=== PATIENT | male | born 1940 | race Caucasian/White ===

== ENCOUNTER 2018-10-14 03:11 | Inpatient (IN) ==
[2018-10-14] MEDS ORDERED: ALBUTEROL NEB INH ONE (05:03)
--- NOTE | 2018-10-14 05:10 | PROVIDER DOCUMENTATION ---
HPI-Respiratory General - General Chief Complaint: Shortness of Breath Stated Complaint: CAN'T BREATHE, SOB X SEVERAL DAYS Time Seen by Provider: 10/14/18 04:50 Source: patient Allergies/Adverse Reactions: Patient Allergies Allergy/AdvReac Type Severity Reaction Status Date / Time No Known Allergies Allergy Verified 08/31/18 15:57 Home Medications: Home Medication List Medication Instructions Recorded Confirmed Last Taken Type Alprazolam [Xanax] 1 mg PO BID PRN PRN 11/02/16 11/02/16 11/01/16 History Amlodipine [Norvasc] 10 mg PO DAILY 11/02/16 11/02/16 11/01/16 History Carboxymethylcellulose Sodium 1 each OP Q3-4H PRN PRN 11/02/16 11/02/16 History [Refresh Plus] Ciprofloxacin 0.3% Ophth Oint 1 drop RIGHT EYE 4XDAY 11/02/16 11/02/16 11/02/16 History [Ciloxan Ophth Oint] Difluprednate [Durezol] 1 drop RIGHT EYE BID 11/02/16 11/02/16 11/02/16 History Hydromorphone HCl [Dilaudid] 4 mg PO Q6H PRN PRN 11/02/16 11/02/16 11/01/16 History Morphine E.r. [Ms Contin] 15 mg PO 4XDAY 11/02/16 11/02/16 11/01/16 History Nepafenac [Ilevro] 1 drop RIGHT EYE DAILY 11/02/16 11/02/16 11/02/16 History Docusate Sodium [Colace] 100 mg PO DAILY #10 cap 08/31/18 Unknown Rx - History of Present Illness-Resp Nature of Presenting Problem: pt has been referred to Dr Mcknight on Tuesday for evaluation of a possible lung cancer. he has a cough, is not sleeping well. he was instructed to use his inhaler for the cough but only uses it rarely. he denied understanding his evaluation for a lung cancer Review of Systems - Adult - REVIEW OF SYSTEMS - ADULT Constitutional: denies: chills, fever Eyes: denies: discharge, blurred vision Ears, Nose, Mouth & Throat: denies: ear pain, nose pain, throat pain Cardiovascular: denies: chest pain, poor circulation, syncope Respiratory: reports: cough, shortness of breath Gastrointestinal: denies: abdominal pain, diarrhea, nausea, vomiting Genitourinary: denies: dysuria, frequent UTI's Musculoskeletal: denies: bone pain, joint pain, joint swelling Integumentary: denies: mole changes, rash, skin sores/ulcer Neurological: denies: numbness, syncope Psychiatric: reports: no symptoms reported Endocrine: denies: goiter, cold intolerance, heat intolerance Hematologic/Lymphatic: denies: low blood count, lymphedema Allergic/Immunologic: reports: no symptoms reported Past History - Adult - PAST MEDICAL HISTORY-ADULT Review of Records: reports: Nursing Assessment Review, Medications Reviewed Major Childhood Illnesses: reports: denies history Cardiovascular: reports: denies history Respiratory: reports: denies history Gastrointestinal: reports: denies history Obstetrical/Gynecological: reports: denies history Genitourinary: reports: denies history Musculoskeletal: reports: denies history Neurological: reports: denies history Endocrine/Immune: reports: denies history Other Conditions: reports: denies history Physical Exam-General - PHYSICAL EXAM-ADULT Initial Vital Signs Reviewed: Yes - CONSTITUTIONAL General Appearance: appears well, alert, no apparent distress - EYES Eyes: PERRL/EOMI, pink conjunctivae - HEAD, EARS, NOSE, MOUTH & THROAT HENMT: normocephalic/atraumatic, moist mucous membranes, normal ENT inspection - NECK Neck: non-tender, full range of motion, supple - RESPIRATORY Respiratory: chest non-tender, lungs clear, normal breath sounds, no pleuratic chest pain, no respiratory distress, no accessory muscle use - CARDIOVASCULAR Cardiovascular: no edema, no murmur - GASTROINTESTINAL (ABDOMEN) Abdominal Exam: non tender, soft - LYMPHATIC Lymphatic: no adenopathy - MUSCULOSKELETAL Back Exam: normal inspection, no CVA tenderness, no vertebral tenderness Extremity: normal range of motion, non-tender, normal gait, normal inspection - SKIN Integumentary: normal color, normal turgor, warm/dry - NEUROLOGIC Neurologic: metal template maker II-XII nml as tested, grossly normal, no motor/sensory deficits - PSYCHIATRIC Psych/Mental Status: normal mood/affect, normal thought content, normal thought process, oriented x 3 Progress - PLAN OF CARE/RESULTS Progress/Plan/Lab Results: Vital Signs - 8 hr 10/14/18 03:21 10/14/18 05:12 10/14/18 05:20 Temperature 97.2 F L Pulse Rate 73 Respiratory Rate 18 Blood Pressure 155/81 O2 Sat by Pulse Oximetry 92 L 90 L 93 L 10/14/18 05:26 10/14/18 05:30 10/14/18 05:40 Temperature Pulse Rate 76 Respiratory Rate 19 Blood Pressure O2 Sat by Pulse Oximetry 94 L 94 L 93 L 10/14/18 05:50 10/14/18 06:00 10/14/18 06:10 Temperature Pulse Rate Respiratory Rate Blood Pressure O2 Sat by Pulse Oximetry 92 L 92 L 92 L 10/14/18 06:20 Temperature Pulse Rate Respiratory Rate Blood Pressure O2 Sat by Pulse Oximetry 91 L Laboratory Results - last 24 hr 10/14/18 10/14/18 05:15 05:15 WBC 8.62 RBC 4.62 L Hgb 13.2 L Hct 40.9 L MCV 88.5 MCH 28.6 MCHC 32.3 L RDW Std Deviation 14.2 Plt Count 342 MPV 10.4 Immature Gran % (Auto) 0.5 Neut % (Auto) 74.1 Lymph % (Auto) 11.9 L [place] % (Auto) 10.7 H Eos % (Auto) 2.3 Baso % (Auto) 0.5 Immature Gran # (Auto) 0.04 Neut # (Auto) 6.39 Lymph # (Auto) 1.03 L [place] # (Auto) 0.92 H Eos # (Auto) 0.20 Baso # (Auto) 0.04 Sodium 140 Potassium 3.3 L Chloride 102 Carbon Dioxide 27 Anion Gap 11 BUN 6 L Creatinine 0.9 Estimated GFR/1.73 m2 > 60 BUN/Creatinine Ratio 7 Glucose 126 H Calculated Osmolality 279 Calcium 9.0 Total Bilirubin 0.82 AST 19 ALT 10 Alkaline Phosphatase 87 Total Protein 7.0 Albumin 3.3 L Globulin 3.7 Albumin/Globulin Ratio 0.9 Orders Category Date Time Status RT [Home O2 Evaluation] ORDERED Care 10/14/18 06:42 Ordered RT [Respiratory Therapy Evaluation] ORDERED Care 10/14/18 05:05 Active ABG [RESP] Stat Lab 10/14/18 06:43 Ordered ABG [RESP] Stat Lab 10/14/18 06:44 Ordered CBC WITH ELECTRONIC DIFF [HEME] Stat Lab 10/14/18 05:15 Completed CMP [COMPREHENSIVE METABOLIC PANEL] [CHEM] Stat Lab 10/14/18 05:15 Completed Albuterol [Albuterol Neb] Med 10/14/18 05:03 Discontinued 5 mg INH NOW ONE Potassium Chloride 20% Liquid Med 10/14/18 06:36 Discontinued 40 meq PO NOW ONE Aerosol Treatments Routine Oth 10/14/18 05:04 Completed Aerosol Treatments Stat Oth 10/14/18 05:04 Completed EKG [EKG] Stat Ther 10/14/18 03:30 Ordered Result Diagrams: 10/14/18 05:15 10/14/18 05:15 - REASSESSMENT Reassessment #1 Time Reassessed: 06:46 Status: unchanged (pt very reluctant to be admitted for oxygen) - EKG 1 Time of EKG reading by physician:: 05:10 EKG Read and Signed by:: Phil Whaley EKG Interpretation (*Must complete 3 of following elements*): Abnormal Rate: 69 Rhythm: AF [place]: normal QRS: normal [place] Interval: normal ST Wave: normal Prior EKG Comparison: changes noted (oct 29 new onset AF) Departure - Departure Date of Disposition Decision: 10/14/18 Time of Disposition Decision: 06:46 DIAGNOSIS: Atrial fibrillation with normal ventricular rate, Lung mass, Hypoxia Disposition: ADMITTED INPATIENT 09 Certified Medical Emergency: Emergent Condition: Stable Referrals and Follow-Ups: Duglas Fisher MD [Primary Care Provider] - Discharge Education: Steps to Quit Smoking, [id number] - Critical Care Note This patient required my direct & personal management of CC.: No Attestation - Physician/ DANIELA Attestation The physician spent face to face time with patient:: Yes Advanced Practice Provider documentation review:: Supervising physician onsite and consulted in the evaluation and care of this patient. The physician did have a face to face encounter with the patient.
[2018-10-14 05:30] LABS: BASO# 0.04 X1000 (0.0-0.2); BASO% 0.5 % (0.0-0.8); EOS% 2.3 % (0.0-10.0); HEMATOCRIT 40.9 % (42.0-52.0); HEMOGLOBIN 13.2 g/dL (14.0-18.0); IMM GRAN# 0.04 X1000 (0.0-0.04); IMM GRAN% 0.5 % (0.0-0.5); LYMPH# 1.03 X1000 (1.2-3.4); LYMPH% 11.9 % (20.5-51.1); MCH 28.6 PG (27-31); MCHC 32.3 g/dL (33-37); MCV 88.5 FL (81-99); MONO# 0.92 X1000 (0.11-0.59); MONO% 10.7 % (1.7-9.3); MPV 10.4 FL (7.4-10.4); NEUT# 6.39 X1000 (1.4-6.5); NEUT% 74.1 % (42.2-75.2); PLT 342 X1000 (130-400); RBC 4.62 XMIL (4.7-6.1); RDW 14.2 % (11.5-14.5); WBC 8.62 X1000 (4.8-10.8)
[2018-10-14 06:11] LABS: AGAP 11; ALB/GLOB RATIO 0.9; ALBUMIN 3.3 g/dL (3.5-5.0); ALKALINE PHOSPHATASE 87 U/L (32-122); BUN 6 mg/dL (8-22); CHLORIDE 102 mmol/L (98-107); COSMO 279; CREATININE 0.9 mg/dL (0.7-1.2); ESTIMATED GFR > 60; GLUCOSE 126 mg/dL (70-104); GOT 19 U/L (10-34); GPT 10 U/L (10-44); POTASSIUM 3.3 mmol/L (3.5-5.1); SODIUM 140 mmol/L (136-145); TCO2 27 mmol/L (25-35); TOTAL BILIRUBIN 0.82 mg/dL (0.20-1.00)
[2018-10-14] MEDS ORDERED: POTASSIUM CHLORIDE 20% LIQUID PO ONE (06:36)
[2018-10-14 06:55] LABS: ALLEN TEST YES; BE 2.9 mmoll (-3.0-3.0); BLOOD TYPE ARTERIAL; HCO3-(ACT) 27.1 mmoll (20.0-26.0); MODALITY CANNULA; O2(CT) 17.6 mL/dL (15.0-23.0); O2HB 93.2 % (95.0-99.0); PCO2(98.6) 34 mmHg (35-45); PO2(98.6) 67 mmHg (60-100); SAMPLE BLOOD; SAO2 96.5 % (95.0-100.0); THB 13.4 g/dL (11.5-17.4); pH(98.6) 7.49 (7.35-7.45)
--- NOTE | 2018-10-14 07:57 | Diag Imaging Result Doc PS360 ---
EXAM: CHEST-2 VIEWS 10/14/2018 HISTORY: hypoxia TECHNIQUE: AP upright and lateral chest COMMENT: There is generally increased interstitial markings particularly in the left lung. Some sparing of the right upper lobe may be due to emphysematous disease. These findings were not present on 01/08/2016. IMPRESSION: Pulmonary edema plus minus pneumonia. Electronically signed by Prasanna Luu 10/14/2018 7:55 AM
[2018-10-14] MEDS: ROCEPHIN 1 GM in NS 50 ML IV SCH (08:55)
[2018-10-14] MEDS: DUONEB (A & A) INH SCH ×4 (11:25→23:35)
[2018-10-14 11:58] LABS: INR 1.16; PROTIME 15.7 Seconds (11.0-16.0)
[2018-10-14 11:59] LABS: PTT 41.9 Seconds (22.3-41.8)
[2018-10-14] MEDS: LOVENOX SUBQ SCH (12:33)
[2018-10-14] MEDS: LEVAQUIN 500 MG/D5W 500 MG/100 ML IVPB IV SCH (12:34)
--- NOTE | 2018-10-14 14:15 | HISTORY AND PHYSICAL ---
ADDENDUM: Patient seen and examined by myself. Full note dictated and discussed with nurse practitioner. Patient presented emergency department noted he was having trouble breathing having increased work of breathing, shortness of breath. He has a abnormal chest x-ray demonstrating a lung mass. We will admit him to the hospital, treat him for his shortness of breath, will consult for the possibility of biopsy of his lung mass. Will place him on oxygen and will follow. cc: Duglas Fisher MD
--- NOTE | 2018-10-14 14:28 | HISTORY AND PHYSICAL ---
PRIMARY CARE PHYSICIAN: SUNSHINE Quinn, with Dr. Duglas Fisher PRIMARY TAKER OFF HEMP FIBER: Dr. Wyatt Mcknight out of [place] CHIEF COMPLAINT: Shortness of breath, cough, and decreased appetite. HISTORY OF PRESENT ILLNESS: Mr. Clark Mcknight is a 77-year-old male with a medical history of hypertension but denies having a history of coronary artery disease which seems to be listed as a nonobstructive type in a previous history and physical. He does seem to have some sort of cognitive impairment, may be early dementia, and is a poor historian. He states for at least 2 weeks or more, he has been having cough, shortness of breath. No fever. Decreased appetite but no weight loss. His cough has been productive with yellow phlegm. He went to [facility] who did some imaging or chest x-rays and then sent him to Dr. Wyatt Mcknight, and apparently he has an appointment for a procedure at [facility] on Tuesday with Wyatt Mcknight at 11:00 a.m., and I believe it is an evaluation for possible lung cancer, so it could be a biopsy, and he is unsure if that is what they are trying to evaluate, that is just what is mentioned in the ER physician record. There was no other family member at the bedside with him, and he lives at home alone. He continues to smoke and he has so for at least 40 years. We will admit to the Medical Floor. He did have some mild hypoxias that required some oxygen, and his chest x-ray here showed pulmonary edema plus or minus pneumonia, so we will start him on some antibiotics, likely Rocephin. PAST MEDICAL HISTORY: Hypertension, but denies any other history. Also concern for early dementia. PAST SURGICAL HISTORY: Right eye lens implant, and he has had left lower extremity pins placed for a fracture. SOCIAL HISTORY: He smokes less than half a pack per day and has so on and off for 40 years. He dips Skoal and averages about 1/4 of a can per day. He denies alcohol or illicit drug use. He lives at home alone in [place]. 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 FAMILY HISTORY: He said his mother had diabetes and was unsure of his father's medical history. ALLERGIES: No known drug allergies. HOME MEDICATIONS: Not verified, but it appears like he may have a chronic pain syndrome because he has Dilaudid and MS Contin in his old medication records. They need to be verified or reconciled by the nurse. REVIEW OF SYSTEMS: A 14-point review of systems is complete, and all were negative except for those mentioned in the above HPI. Positive for shortness of breath, productive cough with thick yellow phlegm. Positive decreased appetite and poor sleep. Denies fever. PHYSICAL EXAMINATION: VITAL SIGNS: Temperature is 97.2, heart rate 73, respiratory rate 20, blood pressure 161/79, O2 saturation is 95% on 3 L. GENERAL: Mr. Clark Mcknight is a 77-year-old male. He is in no acute distress. He is able to answer questions appropriately. HEENT: Atraumatic and normocephalic. Pupils are equal, round and reactive to light. Extraocular movements were intact. Mucous membranes are moist. NECK: Trachea midline. CARDIOVASCULAR: S1, S2. Regular rate and rhythm. No rubs, gallops or murmurs. No lower extremity edema. Plus 2 dorsalis and radial pulses. Negative JVD or carotid bruits. PULMONARY: Mild crackles in the bases. No accessory muscle use or work of breathing noted. Tolerated nasal cannula 3 L. GASTROINTESTINAL: Soft, nontender and nondistended. Positive bowel sounds x4. EXTREMITIES: Moves all extremities equally with full range of motion. NEUROLOGICAL: Alert and oriented x3. Follows commands. Sensory is intact. SKIN: Warm, dry and intact. DIAGNOSTIC DATA: White blood cells 8000, hemoglobin 13, hematocrit 40, platelet count 342. ABGs showed pH of 7.49, pCO2 of 34, pO2 is 67, bicarb 27, base excess 2.9, saturation 93%, lactate 1.1 on 2 L. Sodium is 140, potassium 3.3, BUN is 6, creatinine 0.9, glucose 126, calcium 9.0, bilirubin 0.82, AST is 19, ALT is 10, albumin 3.3. IMAGING: Chest x-ray with pulmonary edema plus or minus pneumonia. ASSESSMENT AND PLAN: 1. Community acquired pneumonia. White count is normal. He has some mild hypoxia with it requiring oxygen. 2. Mild hypoxemic respiratory insufficiency. We will evaluate for home O2. He will also have nebulizers, albuterol, Atrovent, and budesonide added. 3. Longstanding tobacco abuse, smoking and smokeless. Likely he has COPD due to this. He refuses nicotine patch and states he has plans on quitting smoking as soon as he gets out of the hospital. 4. Currently being ruled out for lung cancer. He is supposed to see Wyatt Mcknight at [facility] at 11:00 a.m. on Tuesday. We will consult Pulmonary for any additional recommendations. 5. Hypertension. Home medications have not been verified. Currently, blood pressure is running 150s to 160s. 6. Right eye lens implant. Apparently he takes lots of eyedrops, so once those are verified, we will resume. 7. Questionable chronic pain syndrome. Some of his old home medications on his medication list from 2017 are MS Contin 15 four times a day and Dilaudid 4 mg every 6 hours p.r.n., but he did not mention that he had any type of chronic pains. 8. DVT prophylaxis. Lovenox. Dictated by SUNSHINE Medrano for Duglas Fisher MD cc: SUNSHINE Medrano MD
[2018-10-14] MEDS: PULMICORT INH SCH (19:20)
[2018-10-14] MEDS: TYLENOL PO PRN (22:39)
[2018-10-15] MEDS: DUONEB (A & A) INH SCH ×6 (03:35→23:00)
[2018-10-15 04:58] LABS: ALLEN TEST YES; BE 3.3 mmoll (-3.0-3.0); BLOOD TYPE ARTERIAL; HCO3-(ACT) 27.3 mmoll (20.0-26.0); METHB 0.7 % (0.0-1.5); O2(CT) 15.8 mL/dL (15.0-23.0); O2HB 90.6 % (95.0-99.0); PCO2(98.6) 41 mmHg (35-45); PO2(98.6) 58 mmHg (60-100); SAMPLE BLOOD; SAO2 93.4 % (95.0-100.0); THB 12.4 g/dL (11.5-17.4); pH(98.6) 7.44 (7.35-7.45)
[2018-10-15 05:01] LABS: MODALITY CANNULA
--- NOTE | 2018-10-15 07:12 | Diag Imaging Result Doc PS360 ---
EXAM: CHEST-1 VIEW 10/15/2018 HISTORY: SOB TECHNIQUE: AP portable at 0510 COMMENT: Compared to the previous study of 10/14/2018 there has been definite worsening of opacification of the left lung and to some extent in the right base. IMPRESSION: Worsening pulmonary edema plus minus pneumonia. Electronically signed by Prasanna Luu 10/15/2018 7:10 AM
[2018-10-15 07:20] LABS: BASO# 0.04 X1000 (0.0-0.2); BASO% 0.5 % (0.0-0.8); EOS# 0.16 X1000 (0.0-0.7); EOS% 2.1 % (0.0-10.0); HEMATOCRIT 38.8 % (42.0-52.0); HEMOGLOBIN 12.2 g/dL (14.0-18.0); IMM GRAN# 0.02 X1000 (0.0-0.04); IMM GRAN% 0.3 % (0.0-0.5); LYMPH# 1.19 X1000 (1.2-3.4); LYMPH% 15.3 % (20.5-51.1); MCH 28.4 PG (27-31); MCHC 31.4 g/dL (33-37); MCV 90.4 FL (81-99); MONO# 0.95 X1000 (0.11-0.59); MONO% 12.2 % (1.7-9.3); MPV 10.9 FL (7.4-10.4); NEUT# 5.43 X1000 (1.4-6.5); NEUT% 69.6 % (42.2-75.2); PLT 295 X1000 (130-400); RBC 4.29 XMIL (4.7-6.1); RDW 14.6 % (11.5-14.5); WBC 7.79 X1000 (4.8-10.8)
[2018-10-15] MEDS: PULMICORT INH SCH ×2 (07:31→19:20)
[2018-10-15 07:36] LABS: AGAP 11; ALB/GLOB RATIO 0.8; ALBUMIN 2.9 g/dL (3.5-5.0); ALKALINE PHOSPHATASE 84 U/L (32-122); BUN 8 mg/dL (8-22); CALCIUM 8.6 mg/dL (8.8-10.2); CHLORIDE 106 mmol/L (98-107); COSMO 289; CREATININE 0.9 mg/dL (0.7-1.2); ESTIMATED GFR > 60; GLUCOSE 136 mg/dL (70-104); GOT 21 U/L (10-34); GPT 12 U/L (10-44); POTASSIUM 3.5 mmol/L (3.5-5.1); SODIUM 145 mmol/L (136-145); TCO2 28 mmol/L (25-35); TOTAL BILIRUBIN 0.49 mg/dL (0.20-1.00); TOTAL PROTEIN 6.4 g/dL (6.3-8.3)
[2018-10-15] MEDS: ROCEPHIN 1 GM in NS 50 ML IV SCH (08:56)
[2018-10-15] MEDS: LEVAQUIN 500 MG/D5W 500 MG/100 ML IVPB IV SCH (08:57)
[2018-10-15] MEDS: LOVENOX SUBQ SCH (08:57)
--- NOTE | 2018-10-15 10:29 | Diag Imaging Result Doc PS360 ---
EXAM: CT THORAX W/O CONTRAST 10/15/2018 HISTORY: pulm edema, ??pneumonia, lung mass TECHNIQUE: This exam was performed using automated exposure control, adjustment of mA or kV according to patient size, and/or use of iterative reconstruction technique. COMMENT: The current examination is compared to the previous study of 10/06/2018. There is still extensive interstitial opacity in the left upper lobe without significant edema seen in the right upper lobe. Some increased interstitial markings are present in both lower lobes. This was also the case previously. The dense alveolar opacity which was demonstrated previously in the anteromedial left upper lobe has not changed significantly in size or appearance. There is still a left pleural effusion although this may be slightly decreased in volume. There is a small effusion on the right. The right effusion may be slightly larger. There is a pericardial effusion which appears larger than on the previous study measuring 14 mm over the apex. The nodule in the right middle lobe described on the previous study has not changed significantly in size or appearance. The lower lobes are slightly better expanded than they were and there are small nodular opacities bilaterally which are slightly better defined than on the previous examination. Of note is one nodule near the pleural surface in the left lower lobe on image 81 measuring 7 mm. This was partially obscured by adjacent alveolar opacity on the previous study but is similar in size. There is right paratracheal and aorticopulmonary window adenopathy. IMPRESSION: Left upper lobe mass. Pulmonary parenchymal metastatic disease and lymphangitic spread/interstitial edema in the left upper lobe. Mild pulmonary edema generally, with bilateral pleural effusions and pericardial effusion. Mediastinal adenopathy. Electronically signed by Prasanna Luu 10/15/2018 10:26 AM
[2018-10-15] MEDS: LASIX IV SCH (12:55)
--- NOTE | 2018-10-15 17:34 | CONSULTATION ---
DATE OF CONSULTATION: 10/15/2018 CHIEF COMPLAINT: Shortness of breath and cough. HISTORY OF PRESENT ILLNESS: This is a 77-year-old, male with a past medical history of hypertension. He has a complaint of shortness of breath and has been having a cough for at least 2 weeks or more. He states that his cough is productive with thick yellow sputum. Recent CT scan on 10/15/2018 revealed left upper lobe mass, pulmonary parenchymal metastatic disease and lymphangitic spread interstitial edema in the left upper lobe, mild pulmonary edema with bilateral pleural effusions and pericardial effusions, mediastinal adenopathy. PAST MEDICAL HISTORY: Hypertension. PAST SURGICAL HISTORY: Right eye lens implant and he has had a left lower pins placed for fracture. SOCIAL HISTORY: Half pack per day smoker on and off for 40 years, dips tobacco. He denies alcohol or illicit drug use. Retired, lives at home alone. FAMILY HISTORY: He said his mother had diabetes, father's side unsure. ALLERGIES: No known drug allergies. HOME MEDICATIONS: See home medication reconciliation list. REVIEW OF SYSTEMS: A 10-point review of systems was conducted and the pertinent is listed within the HPI, otherwise noncontributory. PHYSICAL EXAMINATION: General: This is a 77-year-old male. He is in no acute distress present time, answers questions appropriately. HEENT: Head is atraumatic, normocephalic. Pupils are equal, round, reactive to light. Extraocular movements are intact. Mucous membranes are moist. Neck: Trachea midline. Neck supple. Cardiovascular: S1 and S2. Regular rate and rhythm. No gallops, murmurs or rubs. No lower extremity edema, +2 dorsalis and radial pulses. Pulmonary: Mile crackles in bases. Nonlabored breath sounds. Gastrointestinal : Soft, nontender, nondistended. Positive bowel sounds in all 4 quadrants. Neurological: Alert and oriented x3. Follows commands. Skin: Warm, dry, and intact. Extremities: Full range of motion. No pitting edema. DIAGNOSTIC DATA: As mentioned in the HPI. IMAGING: Chest x-ray report revealed pulmonary edema plus minus pneumonia. LABORATORY DATA: White blood cells 7.79, red blood cells 4.29, hemoglobin 12.2 , hematocrit 38.8, pH 7.44, pCO2 41, PO2 58, HC03 27.3, base excess 3.3, oxyhemoglobin 90.6. Sodium 145, potassium 3.5, chloride 106, carbon dioxide 28, BUN 8, creatinine 0.9, glucose 136, AST 21, ALT 12. ProBNP 294. ASSESSMENT/PLAN: 1. Pneumonia. Continue antibiotics, bronchodilators and supplemental O2. 2. Left upper lobe mass. The patient is scheduled for CT biopsy Tuesday. 3. Hypertension, continue to monitor and continue with antihypertensive medications. 4. Tobacco abuse. Nicotine patches p.r.n., smoking cessation education. 5. Continue DVT prophylaxis with Lovenox. Thank you for the courtesy of this consult. cc: Nish Albarran MD [facility]
--- NOTE | 2018-10-15 22:20 | PROGRESS NOTE ---
DATE: 10/15/2018 INTERVAL HISTORY: The patient reports improvement in his dyspnea, but continues to require 3 to 4 L of oxygen with borderline oxygen saturations. Denies fever, chills, chest pain, diaphoresis. No acute events overnight. REVIEW OF SYSTEMS: Twelve point review of systems negative, except as per interval history. LABS: WBC 7.7, hemoglobin 12.2, hematocrit 38.8, platelets 295,000. ABG with pH 7.4, pCO2 41, PO2 58, O2 saturation 93 on 3 L by nasal cannula. Sodium 145, potassium 3.5, glucose 136, albumin 2.9. CT chest: Left upper lobe mass, pulmonary parenchymal metastatic disease, and lymphangitic spread/interstitial edema in left upper lobe, mild pulmonary edema generally, with bilateral pleural effusions and small pericardial effusion. Also, with mediastinal adenopathy. VITAL SIGNS: T-max 98.4 degrees, pulse 81, blood pressure 142/70, O2 saturation 94% on 3 L by nasal cannula. PHYSICAL EXAMINATION: General: No acute distress. Vitals: As above. HEENT: Normocephalic, atraumatic. Moist mucous membranes. No cervical adenopathy. Cardiovascular: Regular rate and rhythm. No murmurs, rubs, or gallops. Pulmonary: Mild bibasilar crackles. A few scattered rhonchi. No accessory muscle use or increased work of breathing. Abdominal: Bowel sounds positive. Extremities: Peripheral pulses intact. No clubbing, cyanosis, or edema. Neurologic: Cranial nerves 2-12 grossly intact. No focal motor or sensory deficits. Psychiatric: Normal mood and affect. Awake, alert, oriented x3. Skin: No new rashes or lesions identified. ASSESSMENT AND PLAN: 1. Acute hypoxic respiratory failure, likely multifactorial, with underlying lung cancer. Mild pulmonary edema. Possible pneumonia. Little improvement overnight. CT chest today more consistent with edema and cancer, than pneumonia. We will give IV Lasix and monitor. May end up requiring chronic oxygen therapy. BNP only mildly elevated at 294, so suspect edema may be more cancer than CHF-related. Echocardiogram for further evaluation pending. The patient previously had an appointment with Wyatt Mcknight with Pulmonary tomorrow, for further workup of his likely lung cancer, but discussed with the patient that he would likely have to reschedule this appointment, given his ongoing need for oxygen. 2. Likely chronic obstructive pulmonary disease. Patient believes he was diagnosed with chronic obstructive pulmonary disease several years ago. 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 No wheezing at this time, but monitor. 3. Hypokalemia, improved with repletion. Continue to monitor. 4. Hypertension, reasonable control off of home blood pressure medications. If blood pressure becomes further elevated, we will consider restarting. 5. Tobacco abuse. Patient refuses a nicotine patch. 6. Anemia of chronic disease, mild and symptomatic. No need for transfusion at this time. Monitor blood counts. 7. Deep vein thrombosis prophylaxis. Lovenox. 8. Disposition. Patient with acute hypoxia, and likely underlying lung cancer. Oncology has been consulted. Recommendations pending. Diuresing as above. Likely discharge home once hypoxia improved.
[2018-10-16] MEDS: DUONEB (A & A) INH SCH ×6 (03:20→23:20)
[2018-10-16] MEDS: TYLENOL PO PRN (03:53)
[2018-10-16] MEDS: DILAUDID IV PRN ×5 (05:04→22:10)
--- NOTE | 2018-10-16 07:28 | EKG Report ---
Test Performed on : 10/14/2018 03:37:34 AM Test Reason : sob Blood Pressure : / mmHG Vent. Rate : 069 BPM Atrial Rate : 050 BPM P-R Int : 000 ms QRS Dur : 090 ms QT Int : 466 ms P-R-T Axes : 000 048 040 degrees QTc Int : 499 ms Atrial fibrillation. Prolonged QT Abnormal ECG When compared with ECG of 03-NOV-2016 07:53, Atrial fibrillation. has replaced Sinus rhythm. Vent. rate has increased BY 25 BPM QT has lengthened Unconfirmed Result
[2018-10-16] MEDS: PULMICORT INH SCH ×2 (07:58→19:15)
[2018-10-16] MEDS: LASIX IV SCH (08:25)
[2018-10-16] MEDS: ROCEPHIN 1 GM in NS 50 ML IV SCH (08:25)
--- NOTE | 2018-10-16 10:00 | Diag Imaging Result Doc PS360 ---
CHEST-2 VIEWS - 10/16/2018 INDICATION: INSPIRATION/EXPIRATION POST BIOPSY COMPARISON: 10/15/2018 FINDINGS: There is no visible pneumothorax. IMPRESSION: No pneumothorax. Electronically signed by Gregory Briones 10/16/2018 9:58 AM
[2018-10-16] MEDS: LEVAQUIN 500 MG/D5W 500 MG/100 ML IVPB IV SCH (11:57)
--- NOTE | 2018-10-16 13:15 | PROGRESS NOTE ---
DATE: 10/16/2018 SUBJECTIVE: The patient is resting comfortable. Has recently had a bronchoscopy with biopsy. OBJECTIVE: Vital signs: Temperature 98.2, pulse 74, respirations 20, blood pressure 155/77, oxygen saturation is 91%. HEENT: Atraumatic, normocephalic. Cardiovascular: S1, S2. Respiratory system: Has evidence of good air entry bilaterally. Abdomen: Soft, nontender. No masses felt. Extremities: No evidence of edema. Central nervous system: No focal deficits noted. LABS: None. ASSESSMENT AND PLAN: 1. Pneumonia. Continue antibiotics. Bronchodilator treatment as well as a supplemental oxygen. 2. Left upper lobe lung mass. Status post CT-guided biopsy. Pathology report pending. 3. Hypertension. Continue current antihypertensive regimen. 4. Tobacco use history. Nicotine patch. 5. Deep vein thrombosis prophylaxis. Lovenox. cc: Mika Horta MD
--- NOTE | 2018-10-16 13:19 | Diag Imaging Result Doc PS360 ---
CHEST-2 VIEWS - 10/16/2018 1:09 PM INDICATION: Post lung biopsy COMPARISON: 9:54 AM FINDINGS: There is no significant pneumothorax. IMPRESSION: No evidence of complication. Electronically signed by Gregory Briones 10/16/2018 1:16 PM
--- NOTE | 2018-10-16 13:49 | Diag Imaging Result Doc PS360 ---
CT GUIDED BIOPSY LUNG - 10/16/2018 INDICATION: Lung Mass TECHNIQUE: The risks and benefits of the procedure were discussed with the patient. All questions were answered. Written and verbal informed consent was obtained. Overlying skin was prepped and draped in sterile fashion. Anesthesia was achieved with injection of 10 cc of 1% lidocaine. COMPARISON: CT from 09/28/2018 FINDINGS: Biopsy was performed of the anterior left upper lobe pulmonary mass. Six biopsy passes were obtained. The needles were withdrawn intact. The patient reported no symptoms from the procedure. Follow-up chest x-rays demonstrated no pneumothorax. IMPRESSION: Successful and uncomplicated CT-guided lung mass biopsy of the left upper lobe. Electronically signed by Gregory Briones 10/16/2018 1:47 PM
--- NOTE | 2018-10-16 15:10 | ECHO REPORT ---
ORDER DATE: 10/15/2018 ECHOCARDIOGRAM: INDICATION: Pulmonary edema, shortness of breath. FINDINGS: 1. The right atrium is mildly enlarged at 4 cm. 2. Mild tricuspid regurgitation. RV systolic pressure of 38. 3. Normal RV size and systolic function. 4. Mild pulmonic insufficiency. 5. Mild left atrial enlargement with a dimension of 4.7 cm. 6. No mitral valve prolapse. Mild mitral regurgitation. 7. Normal LV size, end-diastolic dimension of 5.2. Normal wall thicknesses with a posterior and interventricular septal wall thickness of 1.1 cm each. Normal LV systolic function. Estimated EF is 65% with normal wall motion. 8. Aortic valve opens well. It is sclerotic. The valve is trileaflet. No evidence of stenosis or insufficiency. 9. Aorta appears normal in visualized segments. 10. There is a small, predominantly anterior pericardial effusion with no evidence of tamponade- type physiology. cc: Chuckie Caceres MD
[2018-10-17] MEDS: DUONEB (A & A) INH SCH ×6 (03:05→22:50)
[2018-10-17] MEDS: DILAUDID IV PRN ×2 (06:26→10:06)
[2018-10-17] MEDS: PULMICORT INH SCH ×2 (07:34→19:10)
[2018-10-17 07:36] LABS: BASO# 0.04 X1000 (0.0-0.2); BASO% 0.4 % (0.0-0.8); EOS# 0.23 X1000 (0.0-0.7); EOS% 2.2 % (0.0-10.0); HEMATOCRIT 41.8 % (42.0-52.0); HEMOGLOBIN 13.4 g/dL (14.0-18.0); IMM GRAN# 0.04 X1000 (0.0-0.04); IMM GRAN% 0.4 % (0.0-0.5); LYMPH# 1.47 X1000 (1.2-3.4); LYMPH% 13.9 % (20.5-51.1); MCH 28.9 PG (27-31); MCHC 32.1 g/dL (33-37); MCV 90.1 FL (81-99); MONO# 1.23 X1000 (0.11-0.59); MONO% 11.7 % (1.7-9.3); MPV 11.1 FL (7.4-10.4); NEUT# 7.54 X1000 (1.4-6.5); NEUT% 71.4 % (42.2-75.2); PLT 295 X1000 (130-400); RBC 4.64 XMIL (4.7-6.1); RDW 14.7 % (11.5-14.5); WBC 10.55 X1000 (4.8-10.8)
[2018-10-17 08:12] LABS: AGAP 11; BUN 9 mg/dL (8-22); CALCIUM 9.6 mg/dL (8.8-10.2); CHLORIDE 98 mmol/L (98-107); COSMO 280; CREATININE 0.9 mg/dL (0.7-1.2); ESTIMATED GFR > 60; GLUCOSE 137 mg/dL (70-104); POTASSIUM 4.3 mmol/L (3.5-5.1); SODIUM 140 mmol/L (136-145); TCO2 31 mmol/L (25-35)
[2018-10-17] MEDS: ROCEPHIN 1 GM in NS 50 ML IV SCH (10:05)
[2018-10-17] MEDS: LASIX IV SCH (10:05)
[2018-10-17] MEDS: LOVENOX SUBQ SCH (10:08)
[2018-10-17] MEDS: LEVAQUIN 500 MG/D5W 500 MG/100 ML IVPB IV SCH (11:01)
[2018-10-17] MEDS ORDERED: LACTULOSE PO ONE (12:09)
--- NOTE | 2018-10-17 12:37 | PROGRESS NOTE ---
DATE: 10/17/2018 SUBJECTIVE: The patient is resting comfortably in bed. He complains of a productive cough. He does complain of intermittent shortness of breath, but denies having chest pain , headache or dizziness. OBJECTIVE: Vital Signs: Temperature 97.5, blood pressure 122/70, heart rate 82 , respirations 20. O2 sats 91% on 2 L nasal cannula. Urine output not measured. General: This is a chronically ill- appearing elderly male sitting up in bed in no acute distress. Head: Normocephalic, atraumatic. Heart: S1, S2 normal. Regular rate and rhythm. Lungs: Coarse breath sounds with diminished breath sounds at the bases. Abdomen: Positive bowel sounds. Soft, nontender, nondistended. Extremities: No edema. No cyanosis. No calf tenderness. Neurologic: The patient is alert and oriented x4. LABORATORY DATA: White blood cell count 10, hemoglobin 13, hematocrit 41, platelets 295,000. Sodium 140, potassium 4.3, chloride 98, CO2 of 31, BUN 9, creatinine 0.9, glucose 137. ASSESSMENT AND PLAN: 1. [id number] hypoxemic respiratory failure, multifactorial. The patient has pneumonia plus a left upper lobe lung mass. We will continue with the current treatment regimen. 2. Pneumonia. Continue with the antibiotic and bronchodilator therapy. 3. Left upper lobe lung mass, status post CT-guided biopsy. The pathology report is currently pending. 4. Chronic obstructive pulmonary disease. Continue with bronchodilator therapy and supplemental oxygen. The patient qualifies for home O2. Orthotic Technician is working on arranging this upon discharge. 5. Constipation. Will start the patient on scheduled laxative therapy. 6. Gastrointestinal prophylaxis. Will start the patient on omeprazole. 7. Deep vein thrombosis prophylaxis. Continue on Lovenox. cc: Stephanie Cortez MD MTDD
--- NOTE | 2018-10-17 15:06 | HEMO/ONC CONSULTATION ---
DATE: 10/17/2018 REASON FOR CONSULTATION: Possible metastatic cancer. HISTORY OF PRESENT ILLNESS: The patient is a 77-year-old male who reports shortness of breath over the last 4 weeks. He denies anorexia or weight loss. He was concerned this might be pneumonia. He denies any fever. He reports sputum that is clear and sometimes yellow. He denies dirty yellow-green sputum. He denies hemoptysis. He presented to the ER and a chest x-ray was performed. This revealed pulmonary edema plus/minus pneumonia. He was admitted to the hospital and started on antibiotics. A CT of the chest was obtained. This revealed left upper lobe mass, pulmonary parenchymal metastatic disease and possible lymphangitic spread in the left upper lobe, bilateral pleural effusions and pericardial effusion and mediastinal lymphadenopathy. He saw Dr. Albarran. A CT-guided lung biopsy was performed and pathology is pending. PAST MEDICAL HISTORY: Hypertension. PAST SURGICAL HISTORY: None significant. SOCIAL HISTORY: Patient is a chronic smoker. He denies alcohol or substance abuse. FAMILY HISTORY: Positive for diabetes. ALLERGIES: No known drug allergies. CURRENT MEDICATIONS: 1. DuoNeb. 2. Pulmicort. 3. Ceftriaxone. 4. Lovenox. 5. Lasix. 6. Dilaudid. 7. Levaquin. 8. Prilosec. 9. MiraLAX. REVIEW OF SYSTEMS: Patient denies anorexia or weight loss. He denies glandular enlargement in the neck, axilla, or the groin. He denies chest pain. All other review of systems are negative. PHYSICAL EXAMINATION: General: The patient is well-developed, well-nourished, in no acute distress. Vital Signs: Temperature 97.5, pulse 82, blood pressure 122/70. Eyes: EOMI. PERRLA. Anicteric. Mucous membranes are moist. Neck: Supple without JVD, thyromegaly, or nodules. Lymph node survey is negative. Cardiac Exam: Regular rate and rhythm. Normal S1 and S2. Chest reveals good air entry. No crackles or rhonchi. Abdomen: Soft, nontender, without hepatosplenomegaly or masses. Extremities: No cyanosis, clubbing, or edema. Neurological: Alert and oriented x3. No focal motor deficits. LABORATORY DATA: White count 10.5, hemoglobin 13.4, platelets 295,000. BUN 9, creatinine 0.9. CEA is pending. ASSESSMENT AND PLAN: 1. Left upper lobe mass with other lung lesions, pleural effusion, and pericardial effusion and mediastinal lymphadenopathy: This is very concerning for malignancy. The patient has undergone CT-guided biopsy and results are pending. We will follow up on these results and plan further management accordingly. He will require an outpatient PET scan, and we will schedule the same. 2. Pneumonia: He is on broad-spectrum antibiotics. Continue antibiotics. I am not very sure that he really has pneumonia based on the CT scan findings. 3. Deep venous thrombosis prophylaxis: Continue Lovenox. cc: Laureano Onofre MD
[2018-10-17] MEDS ORDERED: FLEET MINERAL OIL ENEMA PR ONE (20:00)
[2018-10-17] MEDS ORDERED: DULCOLAX PR SCH (21:00)
[2018-10-17] MEDS: MIRALAX PO SCH (21:44)
[2018-10-18] MEDS ORDERED: RESTORIL PO ONE (00:30)
[2018-10-18] MEDS: DUONEB (A & A) INH SCH ×4 (02:35→15:18)
[2018-10-18] MEDS: PRILOSEC PO SCH ×2 (06:20→06:22)
[2018-10-18] MEDS: PULMICORT INH SCH (07:41)
[2018-10-18 07:45] LABS: BASO# 0.02 X1000 (0.0-0.2); BASO% 0.2 % (0.0-0.8); EOS# 0.26 X1000 (0.0-0.7); EOS% 2.7 % (0.0-10.0); HEMATOCRIT 42.1 % (42.0-52.0); HEMOGLOBIN 13.3 g/dL (14.0-18.0); IMM GRAN# 0.03 X1000 (0.0-0.04); IMM GRAN% 0.3 % (0.0-0.5); LYMPH# 1.45 X1000 (1.2-3.4); MCH 28.3 PG (27-31); MCHC 31.6 g/dL (33-37); MCV 89.6 FL (81-99); MONO# 1.13 X1000 (0.11-0.59); MONO% 11.7 % (1.7-9.3); NEUT# 6.79 X1000 (1.4-6.5); NEUT% 70.1 % (42.2-75.2); PLT 289 X1000 (130-400); RDW 14.7 % (11.5-14.5); WBC 9.68 X1000 (4.8-10.8)
[2018-10-18 08:08] LABS: AGAP 11; BUN 12 mg/dL (8-22); CALCIUM 9.6 mg/dL (8.8-10.2); CHLORIDE 98 mmol/L (98-107); COSMO 279; CREATININE 0.8 mg/dL (0.7-1.2); ESTIMATED GFR > 60; GLUCOSE 124 mg/dL (70-104); POTASSIUM 3.4 mmol/L (3.5-5.1); SODIUM 139 mmol/L (136-145); TCO2 30 mmol/L (25-35)
[2018-10-18] MEDS: ROCEPHIN 1 GM in NS 50 ML IV SCH (08:23)
[2018-10-18] MEDS: LEVAQUIN 500 MG/D5W 500 MG/100 ML IVPB IV SCH (08:23)
[2018-10-18] MEDS: MIRALAX PO SCH (08:23)
[2018-10-18] MEDS: DILAUDID IV PRN ×3 (08:23→13:56)
[2018-10-18] MEDS: LASIX IV SCH (08:24)
[2018-10-18] MEDS: LOVENOX SUBQ SCH ×2 (08:24→09:41)
--- NOTE | 2018-10-18 08:33 | HEMO/ONC PROGRESS NOTE ---
DATE: 10/18/2018 SUBJECTIVE: Patient continues to be short of breath. The patient continues to have productive cough. Denies any other complaints at this time. OBJECTIVE: Vital Signs: Temperature 97.8 degrees, heart rate 63, respiratory rate 15, blood pressure 120/61, saturation 95% on nasal cannula. General: Patient is awake, lying in bed, no acute distress noted. HEENT: Anicteric. Pupils PERRLA. Mucous membranes moist. Cardiovascular: Normal S1 S2. Regular rate and rhythm. Chest: Bilateral breath sounds clear to auscultation. Abdomen: Soft, nontender. Bowel sounds present in all 4 quadrants. Neurologic: Alert and oriented x3. No focal deficits noted. LABORATORY DATA: White blood cell count 9.68, hemoglobin 13.3, hematocrit 42.1 , platelets are 289,000. CEA is 237.3. ASSESSMENT AND PLAN: 1. Left upper lobe mass with other lung lesions, pleural effusion, pericardial effusion and mediastinal lymphadenopathy: CEA is 237.7. CT guided biopsy results are pending. We will continue to monitor, follow up results and plan for patient have outpatient PET scan once he is discharged. Continue to monitor closely. 2. Pneumonia: Continue orders per primary medical team. 3. Deep venous thrombosis prophylaxis: Continue Lovenox as ordered. Plan of care discussed with Dr. Onofre. Dictated by SUNSHINE Castellano for Laureano Onofre MD Patient seen and examined. No new complaints. Pathology results are pending. We will plan to schedule him for a PET scan outpatient and seen back early next week to discuss pathology and further management. He has pleural effusions and pericardial effusion. Follow-up on echocardiogram. Patient has been advised to return to the ER if he develops rapidly worsening shortness of breath. Laureano Onofre M.D. cc: SUNSHINE Castellano MD [facility]
[2018-10-18] MEDS ORDERED: KLOR-CON PO ONE (09:27)
[2018-10-18] MEDS ORDERED: LACTULOSE PO ONE (10:05)
[2018-10-18] MEDS ORDERED: MILK OF MAGNESIA PO ONE (10:05)
[2018-10-18 11:20] VITALS: BP 110/52
--- NOTE | 2018-10-18 14:30 | Diag Imaging Result Doc PS360 ---
EXAM: ABDOMEN FLAT/UPRIGHT INDICATION: constipation TECHNIQUE: 2 views COMPARISON: 08/31/2018 FINDINGS: There are unremarkable bowel gas and stool patterns. There is no obstructive bowel pattern. There is no evidence of large volume free abdominal gas. 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 Degenerative arthropathy is also seen throughout the spine. IMPRESSION: No evidence of acute pathology by plain radiograph. Electronically signed by Alfa Turpin 10/18/2018 2:28 PM
--- NOTE | 2018-10-29 05:24 | DISCHARGE SUMMARY ---
ADMISSION DATE: 10/14/2018 DISCHARGE DATE: 10/18/2018 FINAL DISCHARGE DIAGNOSES: 1. Acute on chronic hypoxemic respiratory failure. 2. Left upper lobe lung mass, status post CT-guided biopsy. 3. Pneumonia. 4. Chronic obstructive pulmonary disease. 5. Constipation. 6. Hypertension. IMAGING PERFORMED DURING THIS HOSPITAL STAY: 1. Portable chest x-ray performed on 10/14/2018 that revealed pulmonary edema plus or minus pneumonia. 2. CT of the chest performed on 10/15/2018 that revealed a left upper lobe mass. Possible metastatic disease and lymphangitic spread with interstitial edema in the left upper lobe. Mediastinal adenopathy. 3. Echocardiogram performed on 10/15/2018 that revealed an ejection fraction of 65%. Small anterior pericardial effusion. No evidence of tamponade. PROCEDURES PERFORMED: CT-guided lung biopsy. CONSULTATIONS REQUESTED DURING THIS HOSPITAL STAY: 1. Pulmonary consultation with Dr. Albarran. 2. Oncology consultation with Dr. Onofre. HOSPITAL COURSE: Mr. Mcknight is a 77-year-old male who presented to the ER with shortness of breath. A chest x-ray was done that revealed pulmonary edema and pneumonia. A CT of the chest was then done that revealed a left upper lobe lung mass as well as mediastinal adenopathy and lymphangitis spread in the lung. In light of these findings, the patient was transferred to [facility] for a pulmonary consultation. Upon arrival to [facility], the patient was seen by the pre planning advisor who recommended a CT-guided biopsy. This was performed on 10/16/2018. The patient was, in the meantime, treated with broad-spectrum antibiotics, bronchodilator therapy, and supplemental oxygen. Since there was a high likelihood that this was cancerous, oncology was consulted. The patient was seen by the oncologist who stated that he would complete the staging process as outpatient once the biopsy results are available. The patient continued to improve clinically and was cleared for discharge on 10/18/2018. DISCHARGE MEDICATIONS: 1. Dilaudid 4 mg p.o. every 6 hours p.r.n. 2. MiraLAX 17 g p.o. twice a day. 3. Amlodipine/benazepril 1 tablet oral daily. 4. DuoNebs q.4 p.r.n. for shortness of breath. 5. Augmentin 875 one tablet oral every 12 hours. 6. Movantik 25 mg p.o. daily. 7. Flonase 1 spray intranasal daily. DISCHARGE DIET: Low-sodium, low-cholesterol diet. ACTIVITY: As tolerated. FOLLOWUP INSTRUCTIONS: The patient will need to follow up with Dr. Albarran as scheduled by his clinic. The patient will also follow up with Dr. Onofre as scheduled by his clinic to go over the biopsy results. cc: MD Duglas Cornejo MD
== END 2018-10-18 15:30 | disposition home or self-care (01) | DRG 180 ==
LOC: ED 03:11 → SUATTDRO 09:01 → 3N 09:01
PROVIDERS: ATTEND Internal Medicine
CPT/HCPCS: 32405; 36415; 71010; 71020; 71045; 71046; 71250; 74019; 74020; 77012; 80048; 80053; 82378; 82805; 83880; 84145; 85025; 85610; 85730; 88305; 93005; 93306; 94640; 94760; 94761; 94799; 96365; 97110; 97116; 97162; 97530; 99285; A9270; J0696; J1170; J1650; J1940; J1956

== ENCOUNTER 2018-10-28 15:35 | Inpatient (IN) ==
[2018-10-28] MEDS ORDERED: DUONEB (A & A) INH ONE (16:10)
[2018-10-28] MEDS ORDERED: DECADRON IV ONE (16:11)
[2018-10-28 17:09] LABS: ALLEN TEST YES; BE 5.3 mmoll (-3.0-3.0); BLOOD TYPE ARTERIAL; METHB 1.2 % (0.0-1.5); O2(CT) 18.2 mL/dL (15.0-23.0); O2HB 94.8 % (95.0-99.0); PO2(98.6) 89 mmHg (60-100); SAMPLE BLOOD; SAO2 98.1 % (95.0-100.0); THB 13.6 g/dL (11.5-17.4); pH(98.6) 7.38 (7.35-7.45)
[2018-10-28 17:10] LABS: MODALITY PRB
[2018-10-28 17:11] LABS: PCO2(98.6) 54 mmHg (35-45)
[2018-10-28 17:51] LABS: BASO# 0.03 X1000 (0.0-0.2); BASO% 0.2 % (0.0-0.8); EOS# 0.27 X1000 (0.0-0.7); EOS% 2.2 % (0.0-10.0); HEMATOCRIT 42.6 % (42.0-52.0); HEMOGLOBIN 13.2 g/dL (14.0-18.0); IMM GRAN# 0.07 X1000 (0.0-0.04); IMM GRAN% 0.6 % (0.0-0.5); LYMPH% 17.2 % (20.5-51.1); MCH 28.1 PG (27-31); MCV 90.8 FL (81-99); MONO# 1.02 X1000 (0.11-0.59); MONO% 8.4 % (1.7-9.3); NEUT# 8.69 X1000 (1.4-6.5); NEUT% 71.4 % (42.2-75.2); PLT 161 X1000 (130-400); RBC 4.69 XMIL (4.7-6.1); RDW 15.4 % (11.5-14.5); WBC 12.18 X1000 (4.8-10.8)
--- NOTE | 2018-10-28 18:01 | Diag Imaging Result Doc PS360 ---
EXAM: CHEST-2 VIEWS INDICATION: sob, tachypnea, recent dx of lung cancer TECHNIQUE: 3 views COMPARISON: 10/16/2018 FINDINGS: Extensive bilateral reticulonodular infiltrates, worse on the left, are essentially stable. No definite new consolidation is identified. There is no discrete pleural fluid collection or pneumothorax. Cardiac silhouette is stable. IMPRESSION: Essentially infiltrates bilaterally. Electronically signed by Alfa Turpin 10/28/2018 5:59 PM
[2018-10-28] MEDS ORDERED: ROCEPHIN 1 GM in NS 50 ML IV ONE (18:14)
[2018-10-28 18:17] LABS: AGAP 11; ALBUMIN 3.6 g/dL (3.5-5.0); ALKALINE PHOSPHATASE 113 U/L (32-122); BUN 13 mg/dL (8-22); CHLORIDE 100 mmol/L (98-107); COSMO 277; CREATININE 0.9 mg/dL (0.7-1.2); ESTIMATED GFR > 60; GLUCOSE 147 mg/dL (70-104); GOT 25 U/L (10-34); GPT 18 U/L (10-44); MAGNESIUM 2.2 mg/dL (1.5-2.7); PHOSPHORUS 3.6 mg/dL (2.7-4.5); POTASSIUM 4.3 mmol/L (3.5-5.1); SODIUM 137 mmol/L (136-145); TCO2 26 mmol/L (25-35); TOTAL BILIRUBIN 0.67 mg/dL (0.20-1.00); TOTAL PROTEIN 7.3 g/dL (6.3-8.3)
[2018-10-28] MEDS ORDERED: LASIX IV ONE ×2 (21:08)
[2018-10-28] MEDS: DUONEB (A & A) INH SCH (22:00)
[2018-10-28] MEDS: LOVENOX SUBQ SCH (23:08)
[2018-10-28] MEDS: LEVAQUIN 750 MG/D5W 750 MG/150 ML IVPB IV SCH (23:08)
--- NOTE | 2018-10-29 01:50 | PROVIDER DOCUMENTATION ---
This chart was entered by Shyanne Lawler Scribe, acting as scribe for Vinay Quintanilla MD. HPI-Respiratory General <Uriel De La Torre. - Last Filed: 10/28/18 19:39> - General Source: patient - History of Present Illness-Resp Quality of Pain: reports: aching Severity in ED: reports: mild Onset/Duration: reports: 3 days ago, 4 days ago Timing: reports: still present, intermittent, constant Cough Quality/Degree: reports: mild Episode Frequency: other (hx of lung cancer) Current Respiratory Medication Therapy: Initiated see nurses note Modifying Factors: improves with: nothing Associated Symptoms: reports: cough, shortness of breath, wheezing. denies: fever/chills Similar Symptoms Previously?: No Recently seen or treated by another doctor?: No <Vinay Gaming - Last Filed: 10/29/18 01:50> - General Chief Complaint: Shortness of Breath Stated Complaint: SOB,LUNG CANCER Time Seen by Provider: 10/28/18 15:56 Allergies/Adverse Reactions: Patient Allergies Allergy/AdvReac Type Severity Reaction Status Date / Time No Known Allergies Allergy Verified 08/31/18 15:57 Home Medications: Home Medication List Medication Instructions Recorded Confirmed Last Taken Type Amlodipine Besylate/Benazepril 1 each PO DAILY 10/14/18 10/28/18 Unknown History [Amlodipine-Benazepril 5-20 mg] Diazepam 2 mg PO PRN PRN 10/14/18 10/28/18 Unknown History Hydromorphone HCl [Dilaudid] 4 mg PO Q6H PRN 10/16/18 10/28/18 Unknown History Polyethylene Glycol 3350 [Miralax] 17 gm PO BID #60 powder, packet 10/18/18 Unknown Rx Albuterol 2.5MG/Ipratrop 0.5MG 3 ml INH PRN PRN 10/26/18 10/28/18 Unknown History [Duoneb (A & A)] - History of Present Illness-Resp Nature of Presenting Problem: 77yom with hx of lung cancer and HTN c/o sob, LLE/RLE edema, cough, and wheezing for 3-4 days. He denies fever, chills, nausea, vomiting, diarrhea, cp. (Shyanne LawlerAngelica) 77yom with hx of lung cancer and HTN c/o sob, LLE/RLE edema, cough, and wheezing for 3-4 days. He denies fever, chills, nausea, vomiting, diarrhea, cp. (Vinay Gaming) Review of Systems - Adult - REVIEW OF SYSTEMS - ADULT Constitutional: denies: chills, fever Eyes: denies: discharge, dry eyes Ears, Nose, Mouth & Throat: denies: ear discharge, ear pain Cardiovascular: denies: chest pain, palpitations Respiratory: reports: cough, shortness of breath, wheezing Gastrointestinal: denies: abdominal pain, diarrhea, nausea, vomiting Genitourinary: denies: dysuria, hematuria Musculoskeletal: denies: back pain, muscle aches, muscle weakness Integumentary: reports: other (LLE/RLE edema) Neurological: denies: dizziness/vertigo, headache/migraines Psychiatric: reports: no symptoms reported Endocrine: reports: no symptoms reported Hematologic/Lymphatic: reports: no symptoms reported Allergic/Immunologic: reports: no symptoms reported All Other Systems: Reviewed and Negative <Vinay Gaming - Last Filed: 10/29/18 01:50> Past History - Adult - PAST MEDICAL HISTORY-ADULT Review of Records: reports: Old Records Reviewed, Nursing Assessment Review, Medications Reviewed Major Childhood Illnesses: reports: denies history Cardiovascular: reports: denies history Respiratory: reports: denies history Gastrointestinal: reports: denies history Obstetrical/Gynecological: reports: denies history Genitourinary: reports: denies history Musculoskeletal: reports: denies history Neurological: reports: denies history Endocrine/Immune: reports: denies history Other Conditions: reports: denies history - PRIOR SURGERIES/PROCEDURES Surgical/Procedure History: reports: other (cataracts) - IMMUNIZATION STATUS Childhood Immunizations: See Nurse Assessment Flu Vaccine: See Nurse Assessment - FAMILY HISTORY Family History: reviewed, not pertinent - SOCIAL HISTORY Smoking: non-smoker Substance Use: denies Living Situation: family <Vinay Gaming - Last Filed: 10/29/18 01:50> Physical Exam-General - NEUROLOGIC Neurologic: grossly normal, no motor/sensory deficits <Uriel De La Torre - Last Filed: 01/19/19 19:39> - PHYSICAL EXAM-ADULT Initial Vital Signs Reviewed: Yes - CONSTITUTIONAL General Appearance: alert, mild distress - EYES Eyes: PERRL/EOMI, pink conjunctivae - NECK Neck: non-tender, supple - RESPIRATORY Respiratory: respiratory distress, wheezing (expiratory), other (decreased air entry worse on L side, tachypnea) - CARDIOVASCULAR Cardiovascular: regular rate, rhythm, no gallop, no murmur - GASTROINTESTINAL (ABDOMEN) Abdominal Exam: normal bowel sounds, non tender, soft - MUSCULOSKELETAL Extremity: non-tender, pedal edema (+3 LLE/RLE below knee) - SKIN Integumentary: normal color, warm/dry. negative: cyanosis - NEUROLOGIC Neurologic: grossly normal, no motor/sensory deficits - PSYCHIATRIC Psych/Mental Status: normal mood/affect, normal thought content, normal thought process, oriented x 3 <Vinay Gaming - Last Filed: 10/29/18 01:50> Progress - PLAN OF CARE/RESULTS Result Diagrams: 10/28/18 17:25 10/28/18 17:25 - REASSESSMENT Reassessment #1 Time Reassessed: 18:51 Status: unchanged (Dr. Caceres cardiology recommendations: doesn't think this is ACS. Troponin elevation could be from overload and infection. admit to hospital.) - CONSULTS/PCP/HOSPITALIST Notification #1 *Consult/PCP/Hospitalist*: Dr. Luca Mendoza Time Discussed: 19:35 Consult Disposition: Admit (Accepted.) <Uriel De La Torre - Last Filed: 10/28/18 19:39> - PLAN OF CARE/RESULTS Result Diagrams: 10/28/18 17:25 10/28/18 17:25 - EKG 1 Time of EKG reading by physician:: 15:51 EKG Read and Signed by:: Uriel De La Torre EKG Interpretation (*Must complete 3 of following elements*): Abnormal Rate: 57 Rhythm: Atrial fibrillation with slow ventricular response ST Wave: normal 2 Time of EKG reading by physician:: 17:20 EKG Read and Signed by:: Vinay Gaming EKG Interpretation (*Must complete 3 of following elements*): Abnormal Rate: 84 Rhythm: Sinus rhythm with 1st degree AV block [place]: normal ST Wave: normal <Vinay Gaming - Last Filed: 10/29/18 01:50> - PLAN OF CARE/RESULTS Progress/Plan/Lab Results: Vital Signs - 8 hr 10/28/18 18:02 10/28/18 18:20 10/28/18 18:30 Pulse Rate 96 H 91 H 79 Respiratory Rate 24 21 24 Blood Pressure 172/93 O2 Sat by Pulse Oximetry 95 97 94 L 10/28/18 18:40 10/28/18 18:50 10/28/18 19:00 Pulse Rate 85 81 78 Respiratory Rate 22 23 21 Blood Pressure O2 Sat by Pulse Oximetry 94 L 92 L 94 L 10/28/18 19:10 10/28/18 19:20 10/28/18 19:30 Pulse Rate 94 H 94 H 83 Respiratory Rate 21 22 11 L Blood Pressure O2 Sat by Pulse Oximetry 95 97 94 L 10/28/18 19:40 10/28/18 19:50 10/28/18 20:00 Pulse Rate 77 93 H 84 Respiratory Rate 14 22 18 Blood Pressure O2 Sat by Pulse Oximetry 94 L 96 98 10/28/18 20:10 10/28/18 20:20 10/28/18 20:30 Pulse Rate 92 H 84 90 Respiratory Rate 16 21 Blood Pressure O2 Sat by Pulse Oximetry 97 90 L 90 L 10/28/18 20:40 10/28/18 20:50 10/28/18 21:00 Pulse Rate 96 H 93 H Respiratory Rate Blood Pressure O2 Sat by Pulse Oximetry 93 L 95 95 10/28/18 21:10 10/28/18 21:20 10/28/18 21:30 Pulse Rate Respiratory Rate Blood Pressure O2 Sat by Pulse Oximetry 96 96 92 L 10/28/18 21:40 10/28/18 21:50 10/28/18 22:00 Pulse Rate 66 Respiratory Rate 23 Blood Pressure O2 Sat by Pulse Oximetry 92 L 85 L 97 10/28/18 22:02 10/28/18 22:03 10/28/18 22:04 Pulse Rate 86 82 83 Respiratory Rate 27 H 18 25 H Blood Pressure 169/93 164/90 O2 Sat by Pulse Oximetry 97 98 97 10/28/18 22:10 10/28/18 22:20 10/28/18 22:30 Pulse Rate 68 83 70 Respiratory Rate 24 27 H 22 Blood Pressure O2 Sat by Pulse Oximetry 95 95 94 L 10/28/18 22:40 Pulse Rate 71 Respiratory Rate 23 Blood Pressure O2 Sat by Pulse Oximetry 94 L Laboratory Results - last 24 hr 10/28/18 10/28/18 10/28/18 16:42 17:25 17:25 WBC 12.18 H RBC 4.69 L Hgb 13.2 L Hct 42.6 MCV 90.8 MCH 28.1 MCHC 31.0 L RDW Std Deviation 15.4 H Plt Count 161 MPV 12.0 H Immature Gran % (Auto) 0.6 H Neut % (Auto) 71.4 Lymph % (Auto) 17.2 L [place] % (Auto) 8.4 Eos % (Auto) 2.2 Baso % (Auto) 0.2 Immature Gran # (Auto) 0.07 H Neut # (Auto) 8.69 H Lymph # (Auto) 2.10 [place] # (Auto) 1.02 H Eos # (Auto) 0.27 Baso # (Auto) 0.03 Specimen Type ARTERIAL Sample Site R RADIAL pH 7.38 pCO2 54 H* pO2 89 HCO3 29.0 H Base Excess 5.3 H Oxyhemoglobin 94.8 L ABG O2 Sat (Calculated) 18.2 ABG O2 Saturation 98.1 ABG Carboxyhemoglobin 2.20 ABG Methemoglobin 1.2 Trav Test YES A-a O2 Difference 414.0 Total Hemoglobin 13.6 Lactate 1.70 Liter Flow 12.0 Blood Gas Modality PRB FiO2 % 80.0 Sodium Potassium Chloride Carbon Dioxide Anion Gap BUN Creatinine Estimated GFR/1.73 m2 BUN/Creatinine Ratio Glucose Calculated Osmolality Calcium Phosphorus Magnesium Total Bilirubin AST ALT Alkaline Phosphatase Creatine Kinase Troponin T 0.092 H Jtd-[id number] Pept Total Protein Albumin Globulin Albumin/Globulin Ratio 10/28/18 10/28/18 10/28/18 17:25 17:25 21:56 WBC RBC Hgb Hct MCV MCH MCHC RDW Std Deviation Plt Count MPV Immature Gran % (Auto) Neut % (Auto) Lymph % (Auto) [place] % (Auto) Eos % (Auto) Baso % (Auto) Immature Gran # (Auto) Neut # (Auto) Lymph # (Auto) [place] # (Auto) Eos # (Auto) Baso # (Auto) Specimen Type Sample Site pH pCO2 pO2 HCO3 Base Excess Oxyhemoglobin ABG O2 Sat (Calculated) ABG O2 Saturation ABG Carboxyhemoglobin ABG Methemoglobin Trav Test A-a O2 Difference Total Hemoglobin Lactate Liter Flow Blood Gas Modality FiO2 % Sodium 137 Potassium 4.3 Chloride 100 Carbon Dioxide 26 Anion Gap 11 BUN 13 Creatinine 0.9 Estimated GFR/1.73 m2 > 60 BUN/Creatinine Ratio 14 Glucose 147 H Calculated Osmolality 277 Calcium 9.0 Phosphorus 3.6 Magnesium 2.2 Total Bilirubin 0.67 AST 25 ALT 18 Alkaline Phosphatase 113 Creatine Kinase 58 Troponin T Lou-V-Vqhntpqurqo Pept 606 H Total Protein 7.3 Albumin 3.6 Globulin 3.7 Albumin/Globulin Ratio 1.0 10/28/18 21:56 WBC RBC Hgb Hct MCV MCH MCHC RDW Std Deviation Plt Count MPV Immature Gran % (Auto) Neut % (Auto) Lymph % (Auto) [place] % (Auto) Eos % (Auto) Baso % (Auto) Immature Gran # (Auto) Neut # (Auto) Lymph # (Auto) [place] # (Auto) Eos # (Auto) Baso # (Auto) Specimen Type Sample Site pH pCO2 pO2 HCO3 Base Excess Oxyhemoglobin ABG O2 Sat (Calculated) ABG O2 Saturation ABG Carboxyhemoglobin ABG Methemoglobin Trav Test A-a O2 Difference Total Hemoglobin Lactate Liter Flow Blood Gas Modality FiO2 % Sodium Potassium Chloride Carbon Dioxide Anion Gap BUN Creatinine Estimated GFR/1.73 m2 BUN/Creatinine Ratio Glucose Calculated Osmolality Calcium Phosphorus Magnesium Total Bilirubin AST ALT Alkaline Phosphatase Creatine Kinase Troponin T 0.077 Bwp-A-Fgcqqoitgfm Pept Total Protein Albumin Globulin Albumin/Globulin Ratio Orders Category Date Time Status Admit - [facility] Routine AdmDCTranf 10/28/18 21:25 Active Activity - Up with Assistance ORDERED Care 10/28/18 21:25 Active Cardiac Monitoring DIRECTED Care 10/28/18 16:12 Completed Elevate Head of Bed DIRECTED Care 10/28/18 21:25 Active Encourage Fluids DIRECTED Care 10/28/18 21:25 Active [place] Cath Insertion ORDERED Care 10/28/18 21:08 Active Intake and Output-Strict Q 8-HR ASSESS Care 10/28/18 21:25 Active Misc. NRSG Communication Order DIRECTED Care 10/28/18 20:39 Active Nursing- Assist w/ IS as order ORDERED Care 10/28/18 21:25 Active Nursing- MD Consult Request ROUTINE Care 10/28/18 21:25 Active Turn, Cough and Deep Breathe Q2HR Care 10/28/18 21:25 Active Vital Signs Order Q 6-HR ASSESS Care 10/28/18 21:25 Active Physician/Provider Consults Routine Cons 10/29/18 08:00 Ordered Heart Healthy Diet Diet 10/28/18 21:25 Active cxr [CHEST-2 VIEWS] [RAD] Stat Exams 10/28/18 16:09 Completed ABG [RESP] Routine Lab 10/28/18 16:42 Completed BASIC METABOLIC PANEL [CHEM] Routine Lab 10/29/18 06:00 Ordered BLOOD CULTURE [BLDCUL] Stat Lab 10/28/18 21:56 Results BNP [PRO B-NATRIURETIC PEPTIDE] Stat Lab 10/28/18 17:25 Completed CBC WITH DIFF [HEME] Routine Lab 10/29/18 06:00 Ordered CBC WITH ELECTRONIC DIFF [HEME] Stat Lab 10/28/18 17:25 Completed CK PROFILE [SP CHEM] Q8H Lab 10/28/18 21:56 Completed CK PROFILE [SP CHEM] Q8H Lab 10/29/18 05:25 Ordered CK PROFILE [SP CHEM] Q8H Lab 10/29/18 13:25 Ordered CMP [COMPREHENSIVE METABOLIC PANEL] [CHEM] Stat Lab 10/28/18 17:25 Completed MAGNESIUM [CHEM] Stat Lab 10/28/18 17:25 Completed SPUTUM CULTURE WITH GRAM STAIN [RM] Routine Lab 10/28/18 21:25 Uncollected TROPONIN T Q8H Lab 10/28/18 21:56 Completed TROPONIN T Q8H Lab 10/29/18 05:25 Ordered TROPONIN T Q8H Lab 10/29/18 13:25 Ordered TROPONIN T Stat Lab 10/28/18 17:25 Completed phos [PHOSPHORUS] [CHEM] Stat Lab 10/28/18 17:25 Completed Albuterol 2.5MG/Ipratrop 0.5MG [Duoneb (A & A)] Med 10/28/18 22:00 Active 3 ml INH RTQ6H Albuterol 2.5MG/Ipratrop 0.5MG [Duoneb (A & A)] Med 10/28/18 16:10 Discontinued 9 ml INH NOW ONE CefEPIME [Maxipime] 1 gm Med 10/29/18 08:00 Active 0.9% Sodium Chloride Inj [Ns] 50 ml IV Q12H CefTRIAXONE [Rocephin] 1 gm Med 10/28/18 18:14 Discontinued 0.9% Sodium Chloride Inj [Ns] 50 ml IV NOW Dexamethasone [Decadron] Med 10/28/18 16:11 Discontinued 10 mg IV NOW ONE Enoxaparin [Lovenox] Med 10/28/18 21:25 Active 40 mg SUBQ Q24H Furosemide [Lasix] Med 10/28/18 21:08 Discontinued 20 mg IV NOW ONE Furosemide [Lasix] Med 10/28/18 21:08 Discontinued 40 mg IV NOW ONE Hydralazine [Apresoline] Med 10/28/18 21:25 Active 10 mg IV Q6H PRN PRN Levofloxacin 750 mg/D5w [Levaquin 750 mg/D5w] Med 10/28/18 21:25 Active 750 mg in 150 ml IV Q24H Morphine Med 10/28/18 21:25 Active 2 mg IV Q3H PRN PRN Aerosol Treatments Routine Ot 10/28/18 16:10 Completed Aerosol Treatments Routine Ot 10/28/18 21:25 Completed Aerosol Treatments Routine Ot 10/28/18 21:25 Completed Aerosol Treatments Stat Ot 10/28/18 16:10 Completed Aerosol Treatments Stat Ot 10/28/18 21:25 Completed BIPAP Stat Ot 10/28/18 19:46 Completed Incentive Spirometer Routine Ot 10/28/18 21:25 Completed Oxygen Device Routine Ot 10/28/18 21:25 Completed Pulse Oximetry Routine Ot 10/28/18 21:25 Completed EKG [EKG] Routine Ther 10/29/18 08:00 Ordered EKG [EKG] Stat Ther 10/28/18 15:57 Ordered EKG [EKG] Stat Ther 10/28/18 17:08 Ordered Transfer/Admit Order [TRANSFER] Routine Transfer 10/28/18 20:42 Completed Patient care, assessment and plan discussed with the attending physician Dr. Uriel de la torre and he agree with the plan as documented. (Vinay Gaming) Departure - Departure Date of Disposition Decision: 10/28/18 Time of Disposition Decision: 19:34 Certified Medical Emergency: Emergent <Uriel De La Torre - Last Filed: 10/28/18 19:39> - Departure Certified Medical Emergency: Emergent - Critical Care Note This patient required my direct & personal management of CC.: No <Vinay Gaming - Last Filed: 10/29/18 01:50> - Departure DIAGNOSIS: Respiratory distress, Elevated troponin, COPD exacerbation Pneumonia Qualifiers: Aspiration pneumonia type: unspecified Laterality: unspecified laterality Lung location: unspecified part of lung Disposition: ADMITTED INPATIENT 09 Condition: Serious Attestation - Physician/ DANIELA Attestation Patient care was provided by Advanced Practice Provider:: No The physician spent face to face time with patient:: Yes Advanced Practice Provider documentation review:: Supervising physician onsite and consulted in the evaluation and care of this patient. The physician did have a face to face encounter with the patient. <Uriel De La Torre - Last Filed: 10/28/18 19:39> - Physician/ DANIELA Attestation Patient care was provided by Advanced Practice Provider:: No The physician spent face to face time with patient:: Yes Advanced Practice Provider documentation review:: Supervising physician onsite and consulted in the evaluation and care of this patient. The physician did have a face to face encounter with the patient. <Vinay Gaming - Last Filed: 10/29/18 01:50> This chart was documented by the indicated scribe, (Shyanne Lawler, Shamika) and accurately reflects the services I performed and decisions made by me, Vinay Quintanilla MD, as attested by the provider's signature.
--- NOTE | 2018-10-29 01:59 | HISTORY AND PHYSICAL ---
PRIMARY CARE PROVIDER: Duglas Fisher MD. ONCOLOGIST: Laureano Onofre MD. PRIMARY CORE CHECKER: Wyatt Mcknight MD in [place]. CHIEF COMPLAINT: Shortness of breath and cough. HISTORY OF PRESENT ILLNESS: This is a 77-year-old male who was recently diagnosed with lung cancer. He has been being seen outpatient by Dr. Onofre. He was recently admitted on 10/14/2018 for community-acquired pneumonia. He was treated successfully and sent home from what I understand. He comes back in today with the same symptoms, cough with yellow phlegm, increased shortness of breath. I believe he is scheduled this coming Tuesday to have a Port-A-Cath placed for possible chemotherapy treatment. At any rate, he has other past medical history that include hypertension, early dementia, and I believe COPD as well as chronic pain syndrome. Chest x-ray in the ER confirmed bilateral infiltrates. He will be admitted for further evaluation and treatment. PAST MEDICAL HISTORY: See HPI. PREVIOUS SURGICAL HISTORY: Right eye lens implant, left lower extremity pins placed for fracture, lung biopsy secondary to lung cancer. SOCIAL HISTORY: He smokes less than a half a pack a day. He dips Skol, around a fourth of a can a day. He has smoked off and on for around 40 years. He denies alcohol use. He lives in [place]. 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 FAMILY HISTORY: Mother had diabetes. Unsure of father's medical history. ALLERGIES: No known drug allergies. HOME MEDICATIONS: The list of home medications has not been reconciled. An order was placed for nursing to reconcile home medications in the computer. These can be restarted when appropriate. REVIEW OF SYSTEMS: A 14-point review of systems was conducted with the patient. Pertinent positives are listed above in the HPI. All other systems reviewed and found to be negative. PHYSICAL EXAMINATION: VITAL SIGNS: Temperature 97.9 degrees, pulse 85, respirations 28, blood pressure 172/93, oxygen saturation 97% on nonrebreather. I believe he was 88% on 3 liters nasal cannula oxygen. GENERAL: Chronically ill-appearing, 77-year-old male sitting on the side of the ER stretcher. Short of breath with talking; however, answers all questions appropriately. He is alert and oriented x 3. HEENT: Head is atraumatic, normocephalic. Pupils equal, round and reactive to light. Extraocular eye movements intact. Sclerae nonicteric. Conjunctivae are pink. Oral mucosa is moist. NECK: Supple. Mild JVD. Trachea is midline. No cervical lymphadenopathy. No carotid bruits. CARDIAC: S1, S2 appreciated. No murmurs, rubs or gallops. LUNGS: Severely decreased bilaterally. Mild crepitations noted in bilateral bases. No rhonchi, no wheezing. Symmetrical rise and fall respirations. ABDOMEN: Soft, nontender, nondistended. Bowel sounds present in all 4 quadrants, normoactive. No pulsatile mass. No organomegaly. EXTREMITIES: 2+ pitting edema in bilateral lower extremities; 2+ pedal pulses bilaterally. No clubbing or cyanosis. NEUROLOGICAL: Alert and oriented x 3. Cranial nerves II-XII grossly intact. DIAGNOSTIC DATA: Chest x-ray shows extensive bilateral infiltrates. ASSESSMENT AND PLAN: 1. Hospital acquired Pneumonia. Patient has Bilateral infiltrates. At this time , we will order blood cultures and sputum cultures. We will give Levaquin and Maxipime as well as DuoNebs. He was given Decadron in the Emergency Room. We will hold off on steroids at this point. The patient did have mildly increased pulmonary vascular congestion. We will also give 40 mg of Lasix, as he had bilateral lower extremity edema. We will recheck chest x-ray after he is diuresed. 2. Hypercapnic respiratory failure. The patient did have mildly elevated CO2 at 54. We will give Lasix and DuoNebs to try to optimize patient's breathing. We will decrease oxygen per protocol. We will consider BiPAP if patient's condition worsens. It does not seem to be warranted at this time. 3. Recent diagnosis of lung cancer. Aware. We will consult Dr. Onofre. I believe the patient is supposed to have a Port-A-Cath placed Tuesday morning. 4. Hypertension. Home medications have not been reconciled. The patient was unable to tell me what medications he takes. At this point, we will give hydralazine 10 mg IV p.r.n. for systolic blood pressure greater than 150. 5. Elevated troponins. This could be related to demand ischemia. Check EKG tomorrow morning. Trend cardiac enzymes. We will consider Cardiology consultation if patient rules in. He is not having any type of chest pain. 6. Questionable chronic pain syndrome. I believe the patient has been on long- term opioid treatment. We will give him morphine 2 mg IV q. 3 hours as needed. Further recommendations per patient's clinical course. Dictated by SUNSHINE Sellers for Reji Segovia MD I have performed a face to face diagnostic evaluation. Labs and Xrays reviewed. Exam: chest- rhonchi A/P- Pneumonia- Check blood cultures, IV ABX. cc: SUNSHINE Sellers MD Gregory S. Cheatham, MD Naveen T. Lobo, MD Jason Smith, MD [facility]
[2018-10-29] MEDS: DUONEB (A & A) INH SCH ×4 (05:10→22:30)
[2018-10-29 05:31] LABS: BASO# 0.01 X1000 (0.0-0.2); BASO% 0.1 % (0.0-0.8); HEMATOCRIT 37.7 % (42.0-52.0); HEMOGLOBIN 11.9 g/dL (14.0-18.0); IMM GRAN# 0.03 X1000 (0.0-0.04); IMM GRAN% 0.4 % (0.0-0.5); LYMPH# 0.73 X1000 (1.2-3.4); LYMPH% 8.7 % (20.5-51.1); MCH 28.7 PG (27-31); MCHC 31.6 g/dL (33-37); MCV 91.1 FL (81-99); MONO# 0.24 X1000 (0.11-0.59); MONO% 2.9 % (1.7-9.3); MPV 11.2 FL (7.4-10.4); NEUT# 7.38 X1000 (1.4-6.5); NEUT% 87.9 % (42.2-75.2); PLT 149 X1000 (130-400); RBC 4.14 XMIL (4.7-6.1); RDW 14.9 % (11.5-14.5); WBC 8.39 X1000 (4.8-10.8)
[2018-10-29 05:51] LABS: AGAP 11; BUN 16 mg/dL (8-22); CALCIUM 8.9 mg/dL (8.8-10.2); CHLORIDE 101 mmol/L (98-107); COSMO 285; CREATININE 0.9 mg/dL (0.7-1.2); ESTIMATED GFR > 60; GLUCOSE 183 mg/dL (70-104); POTASSIUM 4.2 mmol/L (3.5-5.1); SODIUM 140 mmol/L (136-145); TCO2 28 mmol/L (25-35)
[2018-10-29] MEDS: MAXIPIME 1 GM in NS 50 ML IV SCH ×2 (10:11→23:06)
--- NOTE | 2018-10-29 14:47 | PROGRESS NOTE ---
DATE: 10/29/2018 PRIMARY CARE PHYSICIAN: Dr. Duglas Fisher. PRIMARY GLOBAL EXPANSION SALES DIRECTOR: Dr. Wyatt Mcknight in [place]. ONCOLOGIST: Dr. Laureano Onofre. SUBJECTIVE: Presented with shortness of breath and cough. This is a 77-year-old recently diagnosed with lung cancer. He has been treated as an outpatient per Dr. Onofre. Recently admitted on 10/14/2018 for community-acquired pneumonia, treated successfully, and sent home. Came back yesterday with symptoms of cough and yellow phlegm, increased shortness of breath. He is scheduled for a Port-A-Cath I think on Tuesday and then the possibility of chemo treatment. PAST MEDICAL HISTORY: Includes hypertension, early dementia, COPD, chronic pain syndrome. DIAGNOSTIC DATA: Chest x-ray in the ER confirmed bilateral infiltrates. ASSESSMENT AND PLAN: 1. So admitted with hospital-acquired pneumonia, bilateral infiltrates, history of lung cancer. Put him on Levaquin and Maxipime. He is DuoNeb. 2. Hypercapnic respiratory failure. Elevated CO2 is 54. Continue his bronchodilators, antibiotics, and supplementary O2. 3. Diagnosis of lung cancer. Followed by Dr. Onofre. Port-A-Cath placement is planned. We will see if they want to do that while he is in the hospital. 4. Hypertension. Blood pressures appear to be reasonable. Put him back on his blood pressure medications. 5. Elevated troponin. No sign of active cardiac ischemia, but this could be demand supply ischemia. So, we will continue to follow. 6. Chronic pain syndrome. The patient is getting some morphine. 7. They put a Newsome catheter in and he does have gross hematuria. We need to continue to follow that. 8. Review of his orders. He is on Lovenox 40 mg subcutaneous q.24 hours, Levaquin 750 mg IV q.24 hours, cefepime 1 g q.12. Decadron 10 mg, was given 1 dose yesterday. Lasix, was given 1 dose of 20 mg and I see he was given a dose of 40 mg as well. He was given ceftriaxone 1 g one dose on admission. cc: Trav Lerner MD
[2018-10-29] MEDS: MORPHINE IV PRN (15:50)
[2018-10-29] MEDS ORDERED: B & O 16A SUPP PR PRN (16:20)
[2018-10-29] MEDS: NS 1,000 ML IV SCH (17:59)
[2018-10-29] MEDS ORDERED: FLOMAX PO ONE (19:43)
--- NOTE | 2018-10-29 22:04 | CONSULTATION ---
DATE OF CONSULTATION: 10/29/2018 CHIEF COMPLAINT: Hematuria. HISTORY OF PRESENT ILLNESS: Mr. Mcknight is a 77-year-old who was recently diagnosed with adenocarcinoma of the lung and has been followed outpatient by Dr. Onofre. He presented to the emergency room yesterday complaining of shortness of breath with cough, production of yellow sputum and increased work of breathing. The patient has a history of COPD and just recently quit smoking. The though was that he was fluid overloaded, he received Lasix for diuresis. A Newsome catheter was attempted yesterday. Talking with the patient, he said they tried multiple times for him to have a catheterization with multiple nurses trying. He said that he finally was able to get a catheter, but has had blood urinary output since. He states that he had significant bladder spasms this afternoon and felt that his catheter was not draining well. He states he was previously seen by Dr. Browning for voiding issues, but has not seen a urologist in sometime. He was previously on Flomax, per his report, but stopped because he was told "he didn't need it." Denies urgency, frequency, hesitancy, nocturia, dysuria, or gross hematuria at home. Got a belladonna suppository this afternoon and denies bladder pain. PAST MEDICAL HISTORY 1. GERD 2. Hypertension 3. COPD 4. Lung Cancer PAST SURGICAL HISTORY: 1. Right eye lens implant. 2. Left lower extremity pin for fracture. 3. CT guided lung biopsy. ALLERGIES: No known drug allergies. MEDICATIONS: 1. Duo nebs. 2. Pulmicort. 3. Lovenox. 4. Lasix. 5. Prilosec. 6. MiraLAX. 7. Levaquin. FAMILY HISTORY: Denies family history of prostate cancer or malignancy. SOCIAL HISTORY: The patient continues to smoke approximately half pack a day. He also uses skoal dip. Denies alcohol, illicit drug use. REVIEW OF SYSTEMS: A 12 point review of systems was performed. All pertinent positives and negatives in HPI. PHYSICAL EXAM: Vital Signs: Temperature 97.4 degrees, heart rate 61, blood pressure 163/73, oxygen saturation 99% on nasal cannula. General: No acute distress. Resting comfortably in bed. HEENT: Pupils equal and reactive to light. Normocephalic, atraumatic. Mucous membranes moist . Neck: Trachea midline. No obvious lymphadenopathy or deformity. Cardiovascular: S1, S2 heart sounds. No murmurs, rubs, or gallops. 1+ lower extremity edema. Lungs: Decreased bilaterally with slight rales at the base. Abdomen: Soft, nontender, nondistended. No hepatosplenomegaly . : Paraphimosis was present with the foreskin retracted over glans. Urethral catheter in place draining mostly bloody output. Bilateral testicles palpated without masses or nodularity. Meatus appears to be normal with slight penile glans edema from his paraphimosis. Skin: No obvious skin lesion. Extremities: Moving all extremities. Neurologic: Gross motor and sensory intact. LABS: White blood cell count 8.39, hemoglobin 11.9, hematocrit 37.7, platelets 149,000. Sodium 140, potassium 4.2, chloride 101, bicarb 28, BUN 16, creatinine 0.9, glucose 183. ASSESSMENT/PLAN: Mr. Mcknight is a 77-year-old with history of chronic obstructive pulmonary disease, recently diagnosed lung cancer, hypertension, esophageal reflux disease who presents in evaluation for hematuria and pelvic pain with catheter in place. The patient seems like he had a traumatic catheter placement yesterday by the nurses with 3 separate tries and was having hematuria when he arrived to the floor from the emergency room last night. The patient states that he was voiding fine prior to him being in the hospital and had not had any issues with voiding for some time now. Denies any prostate surgery, radiation or treatment of urethral pathology, he denied straining to void and was emptying adequately. Due to the blood in his urine and feeling the catheter was too far externalized I deflated the balloon and removed it with the intention replacing catheter. Patient had a paraphimosis, that I reduced prior to trying to place the catheter which was likely related to his catheterization in the ED. I then obtained both a 16 and 20-[place] Coude catheters and was not able to adequately get into the bladder with either one . I then attempted to place a ZIPwire through the urethra into bladder, however it went in approximately the length of the urethra however it seemed to hit a blockage and not allow for passage and coiling within the bladder itself. I did try to place the catheter over the wire and irrigated it but it did not appear to irrigate appropriately at which time I removed all catheters and asked him to try to urinate on his own and he was able to urinate a few small drops. I obtained a bladder scan which showed less than 100 mL in his bladder on multiple checks ranged anywhere from 50-79 mL. Recommended leaving him without a catheter. I think that he might have a false passage which has limited the ability to place catheter both over a wire as well as passing a coude catheter and concerned that false passage may lead to difficulty urinating. Also discussed with he and his ex- that if he was to have a catheter placed it probably would require cystoscopy and catheter placement. The patient is currently scheduled to undergo port placement tomorrow with Dr. Reagan and if patient continues to have issues voiding then likely try to do a cystoscopy and catheter placement at that time. I anticipate the patient should to be able to void okay as he previously voided without issues while home. Will monitor overnight and if patient still is having issues would place catheter. The patient was made NPO and was given a dose of Flomax to help with his urination. Will give the patient up to 8 hours before consideration for replacement a catheter or for consideration of a suprapubic tube to drain his bladder. Plan was discussed with patient and his ex-, both were in agreement to allow him to urinate freely if able to and then if had issues and would plan for surgical intervention. cc: MD RAYMUNDO Roque
[2018-10-29] MEDS: LOVENOX SUBQ SCH (23:06)
[2018-10-29] MEDS: LEVAQUIN 750 MG/D5W 750 MG/150 ML IVPB IV SCH (23:11)
[2018-10-29] MEDS: APRESOLINE IV PRN (23:16)
[2018-10-30] MEDS: DUONEB (A & A) INH SCH ×4 (03:45→21:56)
--- NOTE | 2018-10-30 06:30 | PROGRESS NOTE ---
DATE: 10/30/2018 SUBJECTIVE: No acute events overnight. The patient was evaluated in consult late yesterday afternoon for hematuria and concern about bladder spasms. Evaluated the catheter. His catheter did not appear to be in appropriate position. I removed it and attempted to try to place the catheter myself, however there was significant difficulty, even after trying to place a wire. I think patient may either have a very high bladder neck or had his catheter balloon blown up his prostate leading to some bleeding. I elected to remove his catheter last night and patient has voided multiple times since then with a volume of 875cc since then, as well as had a small bowel movement. He denies any pain. Denies any blood in his urination and states they have been yellowish. OBJECTIVE: Vital signs: Temperature 98.2, heart rate 71, blood pressure 115/46 , oxygen saturation 97% on room air. General: No acute distress. Resting comfortably in bed. Pulmonary: On nasal cannula breathing without issue, Cardiovascular: Regular rate and rhythm. Abdomen: Soft, nontender, nondistended. : No suprapubic tenderness or fullness. ASSESSMENT/PLAN: Mr. Mcknight is a 77-year-old who was recently diagnosed with adenocarcinoma of the lung, gastroesophageal reflux disease, hypertension, chronic obstructive pulmonary disease who presented in consultation for hematuria and pelvic pain. I believe his catheter had the balloon blown up in his prostate after multiple attempts to be placed in the emergency room. I attempted to place a coude catheter yesterday on the floor. However, I was unable to place it even after attempting to place a wire. He either has a false passage from prior catheter placement, bladder neck contracture, or a very high bladder neck. I did leave him without a catheter overnight and the patient has been voiding without issue since then. We will continue him voiding spontaneously. Recommended holding off on catheter placement unless deemed necessary by primary team. Urine is clear and he has voided over approximately 900 mL so far. Please call with questions or concerns. cc: Celso Thomas MD [facility]
--- NOTE | 2018-10-30 06:35 | GENERAL SURGERY CONSULTATION ---
DATE: 10/30/2018 REQUESTING PHYSICIAN: Hospitalist service. REASON FOR CONSULTATION: Consult is concerning that the patient had a scheduled port placement for today. HISTORY OF PRESENT ILLNESS: A 77-year-old, male who was recently diagnosed with lung cancer with an adenocarcinoma, biopsy-proven. He had been seen as an outpatient by Dr. Onofre and by myself, and he had been scheduled for a port placement. He had been recently admitted and treated for community-acquired pneumonia, but he has come back in with the same symptoms of shortness of breath. They anticipated starting the treatment was going to be tomorrow for his port. He still had some shortness of breath. His sputum culture does have gram-positive cocci and yeast in it. I was asked to weigh an opinion, given the fact that he has got this known lung cancer and a scheduled port placement. PAST MEDICAL HISTORY: Includes hypertension, early dementia, COPD, chronic pain syndrome, and lung cancer. PAST SURGICAL HISTORY: Includes right eye lens implant, lower extremity pins, lung biopsy. SOCIAL HISTORY: Current smoker. FAMILY HISTORY: Positive for diabetes. ALLERGIES: None. HOME MEDICATIONS: Reviewed. MAR current, reviewed. REVIEW OF SYSTEMS: A full 10 point review of systems was obtained and negative except as specified in the HPI. PHYSICAL EXAMINATION: Vital Signs: The patient is currently afebrile. His vital signs are stable. General Examination: No acute distress. male, looks stated age. HEENT: Normocephalic, atraumatic. Pupils equal, round, reactive to light. Mucous membranes moist. Oropharynx benign. Neck: Supple. Trachea midline. Cardiovascular: Regular rate and rhythm. Lungs: Decreased breath sounds bilaterally. Some coarse sounds noted. Abdomen: Soft, nontender, nondistended. Extremities: Moves all extremities. Neurologic: Grossly intact. Skin: No signs of jaundice. Vascular: All extremities perfused. LABORATORY: Reviewed from yesterday. White blood cell count is trending down, hematocrit is 37.7, platelet count is 149,000. ASSESSMENT AND PLAN: A 77-year-old with lung cancer, now with persistent pneumonia. 1. Pneumonia. At this time, he has been started on antibiotics. He is currently receiving Levaquin and Maxipime. I agree with those treatments. We may need to add an antifungal but will defer to the hospitalist. 2. Lung cancer. At this time, he was scheduled for a port placement. I will discuss further with Dr. Onofre but in the setting of positive blood cultures for bacteria and yeast, I think we may need to hold off on the surgery. I will discuss further with Dr. Onofre and make further recommendations after that. cc: Luis M Reagan MD
[2018-10-30] MEDS: NS 1,000 ML IV SCH ×2 (06:38→17:56)
--- NOTE | 2018-10-30 07:13 | EKG Report ---
Test Performed on : 10/29/2018 05:59:01 AM Test Reason : elevated trops Blood Pressure : / mmHG Vent. Rate : 063 BPM Atrial Rate : 081 BPM P-R Int : 000 ms QRS Dur : 090 ms QT Int : 426 ms P-R-T Axes : 087 083 087 degrees QTc Int : 435 ms Sinus rhythm. with 2nd degree AV block (Mobitz I). Nonspecific ST abnormality Abnormal ECG When compared with ECG of 28-OCT-2018 17:19, (Unconfirmed) fusion complexes are no longer present premature ventricular complexes. are no longer present Sinus rhythm. is now with 2nd degree AV block (Mobitz I). Confirmed by Hang DARDEN, Octavio Haynes ([id number]) on 10/30/2018 11:27:02 AM
--- NOTE | 2018-10-30 07:32 | EKG Report ---
Test Performed on : 10/28/2018 3:51:50 PM Test Reason : CP Blood Pressure : / mmHG Vent. Rate : 057 BPM Atrial Rate : 072 BPM P-R Int : 000 ms QRS Dur : 084 ms QT Int : 404 ms P-R-T Axes : 000 039 069 degrees QTc Int : 393 ms Atrial fibrillation. with slow ventricular response. Abnormal ECG When compared with ECG of 14-OCT-2018 03:37, (Unconfirmed) QT has shortened Unconfirmed Result
--- NOTE | 2018-10-30 07:59 | EKG Report ---
Test Performed on : 10/28/2018 5:19:02 PM Test Reason : CP Blood Pressure : / mmHG Vent. Rate : 084 BPM Atrial Rate : 084 BPM P-R Int : 268 ms QRS Dur : 092 ms QT Int : 354 ms P-R-T Axes : 082 057 086 degrees QTc Int : 418 ms Sinus rhythm. with sinus arrhythmia. with 1st degree AV block. with premature ventricular complexes. or fusion complexes Otherwise normal ECG When compared with ECG of 28-OCT-2018 15:51, (Unconfirmed) Sinus rhythm. has replaced Atrial fibrillation. Unconfirmed Result
[2018-10-30] MEDS: MAXIPIME 1 GM in NS 50 ML IV SCH (08:14)
--- NOTE | 2018-10-30 17:32 | PROGRESS NOTE ---
DATE: 10/30/2018 SUBJECTIVE: Mr. Mcknight is sitting up. He feels much better. Awake and alert. Dr. Onofre has reviewed the films, not convinced that he has a true pneumonia. He does have some lymphatic invasion in his lung. His breathing is comfortable. He is scheduled to get a Port-A-Cath or a subclavian line for his chemotherapy. Recent diagnosis of non-small cell lung cancer. OBJECTIVE: Vital Signs: Temperature 97.9 degrees, pulse 91, respirations 18, blood pressure 124/63. HEENT: Pupils are equal and round. Lungs: Clear in all lung casey. Cardiovascular: Regular rhythm and rate without murmur S3. Urine output was over 1700 mL. DIAGNOSTIC DATA: EKG from this morning revealed normal sinus rhythm, normal axis, had some PVC appreciated. He had some bleeding from trauma in his catheter. The patient had traumatic catheter placement yesterday or the day before, three separate times, and was having hematuria and so he has not had any issues with voiding. Denied any prostate surgery, radiation treatment, urethral pathology. Denied any trouble voiding in the past and they obtain both 16 and 20-Czech coude catheters and were not able to adequately get into the bladder with either one so placed a zip wire through the urethra into the bladder, however went approximately length of the urethra, however, seemed to have blockage and did not allow for passage and coiling within the bladder itself. The bladder scan showed less than 100 mL in the bladder and so they took the catheter out. Think he may have a false passage which limits the ability to place the catheter both over the wire and also on passing a coude catheter. So, he has catheter out. He feels good. He is voiding without complications and he was put on some Flomax. Exam today, he looks much better and breathing comfortably and no blood around his urethral meatus. ASSESSMENT AND PLAN: 1. Admitted with hospital-acquired pneumonia. Bilateral infiltrates but we do not think this is true pneumonia. These are old changes seen before so we will stop his Levaquin and Maxipime. 2. Hypercapnic respiratory failure which is improved. He is to continue bronchodilators, supplemental O2. 3. Diagnosis of lung cancer non-small cell. Plan to place Port-A-Cath I think tomorrow. 4. Hypertension. Blood pressure has been well controlled. 5. Elevated troponin but I do not see any evidence of cardiac ischemia. 6. Chronic pain syndrome. He is getting morphine. 7. Newsome catheter is out. Feeling to have a false passage way. He had some gross hematuria which appears is resolving. 8. He is on low-dose Lovenox daily for DVT prophylaxis. I will discontinue his cefepime and continue his other medications. cc: Trav Lerner MD
[2018-10-30] MEDS: DIFLUCAN PO SCH (17:54)
[2018-10-30] MEDS: FLOMAX PO SCH (17:55)
[2018-10-30] MEDS: LOVENOX SUBQ SCH (20:34)
[2018-10-30] MEDS: APRESOLINE IV PRN (20:35)
--- NOTE | 2018-10-30 21:12 | HEMO/ONC CONSULTATION ---
DATE: 10/30/2018 CHIEF COMPLAINT: We are being consulted further evaluation and management of patient's lung cancer. HPI: Patient a 77-year-old male presented to the emergency department due to increased shortness of breath. The patient said he had been up walking around and over exerted himself and developed shortness of breath. The patient did not put on oxygen at home when he became short of breath. Patient also complained with his same cough that he has had with yellow phlegm. Patient had a chest x-ray while in emergency department that showed likely bilateral infiltrates was admitted that time further evaluation and treatment. The patient is well known to us in our clinic where he was recently been followed up for his recent diagnosis of metastatic lung adenocarcinoma. The patient had a left upper lobe mass, pulmonary metastatic disease and possible lymphangitic spread and bilateral pleural effusions. Patient recently had a PET scan that definitely showed metastatic disease. The patient was recently in the hospital and thought to have pneumonia at that time and on further evaluation showed that it was lung cancer and not pneumonia. PAST MEDICAL HISTORY: Metastatic lung adenocarcinoma and hypertension. PAST SURGICAL HISTORY: Right eye lens implant, left lower extremity pins placed for fracture. SOCIAL HISTORY: Smokes half a pack a day, dip skoal, denies any alcohol or illicit drug use. FAMILY HISTORY: Diabetes. ALLERGIES: No known drug allergies. HOME MEDICATIONS: Duo nebs, amlodipine/benazepril, diazepam, Dilaudid and MiraLAX. REVIEW OF SYSTEMS: Negative as HPI. PHYSICAL EXAM: Vital Signs: Temperature 97.9 degrees, heart rate 62, respiratory rate 20, blood pressure 124/63, saturation 96% on nasal cannula. General: Patient is awake lying in bed, no acute distress noted. HEENT: Anicteric. Pupils PERRLA. Mucous membranes dry. Neck: Supple. Trachea midline. Lymph node survey: No palpable lymphadenopathy. Cardiovascular: S2 regular rate and rhythm. Chest: Bilateral breath sounds diminished bilaterally. Abdomen: Soft, nontender, nondistended, bowel sounds present all 4 quadrants, no hepatosplenomegaly noted. Skin: Warm, dry, intact. No petechiae, no clubbing, no rashes, no cyanosis. Neurologic: Alert and oriented x3. No focal deficits noted. LABORATORY DATA: White blood cell count is 8.39, hemoglobin 11.9, hematocrit 37.7, platelets are 149,000, potassium 4.2, BUN 16, creatinine 0.9. ASSESSMENT AND PLAN: 1. Metastatic lung adenocarcinoma: Patient will get Port-A-Cath placed by surgery tomorrow. Once patient is discharged we will get him started on his chemotherapy as soon as possible. Will continue to monitor closely. 2. Pneumonia: Most likely comparing with recent PET scan patient does not have pneumonia. Most likely what showed up on chest x-ray is metastatic lung cancer. Continue with oxygen and nebulizers as needed. Will continue to monitor closely. 3. Hypertension aware, continue home medications ordered by primary medical team. 4. Pain: Continue pain medications ordered. Plan of care discussed Onofre. Dictated by SUNSHINE Castellano for Laureano Onofre MD Patient seen and examined. CXR discussed with Dr. Luu. CXR is unchanged compared to 2-3 wks ago admission. At that time CT scan and PET revealed lymphangitic spread and no pneumonia. So he believes this is not pneumonia. Discontinue antibiotics and see. Oral anyi noted. Start Diflucan. Laureano Onofre MD. cc: SUNSHINE Castellano MD [facility]
[2018-10-31] MEDS: DUONEB (A & A) INH SCH ×5 (04:15→21:16)
[2018-10-31 05:40] LABS: ALLEN TEST YES; BLOOD TYPE ARTERIAL; HCO3-(ACT) 26.3 mmoll (20.0-26.0); MODALITY CANNULA; O2(CT) 15.6 mL/dL (15.0-23.0); O2HB 91.2 % (95.0-99.0); PCO2(98.6) 50 mmHg (35-45); PO2(98.6) 70 mmHg (60-100); SAMPLE BLOOD; THB 12.1 g/dL (11.5-17.4); pH(98.6) 7.36 (7.35-7.45)
[2018-10-31] MEDS: NS 1,000 ML IV SCH (05:46)
[2018-10-31] MEDS: MORPHINE IV PRN ×2 (05:50→08:50)
[2018-10-31] MEDS ORDERED: KEFZOL 1 GM/D5W 1 GM/50 ML IVPB IV ONE (06:29)
--- NOTE | 2018-10-31 06:46 | GENERAL SURGERY PROGRESS NOTE ---
DATE: 10/31/2018 I discussed the case with Dr. Onofre. He wants to try to proceed with the port. I discussed this with the patient. He is okay to proceed with the port. We have already previously documented in his office visit the risks, benefits, and alternatives of the procedure. We will try to schedule it today for this afternoon. cc: Luis M Reagan MD
[2018-10-31 08:08] LABS: BASO# 0.02 X1000 (0.0-0.2); BASO% 0.2 % (0.0-0.8); EOS# 0.29 X1000 (0.0-0.7); EOS% 3.1 % (0.0-10.0); HEMATOCRIT 38.8 % (42.0-52.0); IMM GRAN# 0.05 X1000 (0.0-0.04); IMM GRAN% 0.5 % (0.0-0.5); LYMPH# 1.15 X1000 (1.2-3.4); LYMPH% 12.3 % (20.5-51.1); MCH 28.7 PG (27-31); MCHC 30.9 g/dL (33-37); MCV 92.8 FL (81-99); MONO# 0.78 X1000 (0.11-0.59); MONO% 8.4 % (1.7-9.3); NEUT# 7.04 X1000 (1.4-6.5); NEUT% 75.5 % (42.2-75.2); PLT 179 X1000 (130-400); RBC 4.18 XMIL (4.7-6.1); RDW 15.7 % (11.5-14.5); WBC 9.33 X1000 (4.8-10.8)
[2018-10-31 08:30] LABS: AGAP 10; BUN 14 mg/dL (8-22); CALCIUM 8.8 mg/dL (8.8-10.2); CHLORIDE 103 mmol/L (98-107); COSMO 284; CREATININE 0.6 mg/dL (0.7-1.2); ESTIMATED GFR > 60; GLUCOSE 205 mg/dL (70-104); POTASSIUM 3.7 mmol/L (3.5-5.1); SODIUM 139 mmol/L (136-145); TCO2 26 mmol/L (25-35)
[2018-10-31] MEDS ORDERED: LASIX IV ONE (10:05)
--- NOTE | 2018-10-31 10:25 | Diag Imaging Result Doc PS360 ---
EXAM: CHEST-PORTABLE HISTORY: dyspnea TECHNIQUE: Portable chest COMPARISON: 10/28/2018 FINDINGS: There are dense bilateral infiltrates. These are more pronounced than on the prior study. Cardiomegaly remains. There are small pleural effusions. IMPRESSION: Interval worsening. Electronically signed by Cristian Arriaga 10/31/2018 10:22 AM
[2018-10-31 10:41] LABS: BE 4.5 mmoll (-3.0-3.0); BLOOD TYPE ARTERIAL; HCO3-(ACT) 28.3 mmoll (20.0-26.0); METHB 0.8 % (0.0-1.5); PCO2(98.6) 46 mmHg (35-45); PO2(98.6) 60 mmHg (60-100); SAMPLE BLOOD; THB 12.6 g/dL (11.5-17.4); pH(98.6) 7.42 (7.35-7.45)
[2018-10-31 10:42] LABS: ALLEN TEST YES; MODALITY CANNULA
[2018-10-31] MEDS: DIFLUCAN PO SCH (10:46)
[2018-10-31] MEDS: FLOMAX PO SCH (10:46)
[2018-10-31] MEDS ORDERED: ZYVOX 600 MG/D5W 600 MG/300 ML IVPB IV SCH (11:00)
[2018-10-31] MEDS ORDERED: MAXIPIME 2 GM in NS 100 ML IV SCH (11:00)
--- NOTE | 2018-10-31 15:03 | CONSULTATION ---
DATE OF CONSULTATION: 10/31/2018 IMPRESSION: 1. Small pericardial effusion on recent echocardiography. 2. Patient currently admitted with extensive non-small cell lung cancer in both lungs. 3. Severe chronic obstructive pulmonary disease requiring chronic home oxygen. 4. Mild coronary atherosclerosis in the past. Recent echocardiography indicated normal left ventricular ejection fraction. 5. Hypertension. 6. Gastroesophageal reflux disease. RECOMMENDATIONS: 1. Repeat limited echocardiography to reassess pericardial effusion. Presently, the patient manifests no clinical signs of tamponade. 2. Check albumin and pro B-natriuretic peptide level. 3. Conservative cardiovascular management overall. 4. Aggressively treat his extensive pulmonary disease with underlying severe chronic obstructive pulmonary disease now with extensive bilateral non-small cell lung cancer. HISTORY: This 77-year-old white male with a past history of mild coronary atherosclerosis by previous coronary angiography in 2010, severe COPD requiring chronic home oxygen, hypertension, gastroesophageal reflux disease, and recently discovered extensive bilateral non-small cell lung cancer was recently admitted with increasing dyspnea and cough productive of yellow sputum. He recently had echocardiography which indicated a small pericardial effusion anteriorly without evidence of tamponade on 10/15/2018. For this reason, Cardiology was consulted. He has had some tendency for edema but no orthopnea. His appetite has been limited, and he has not had much to eat in the last couple of days due to extensive testing. There has been no angina. It is planned for him to have chemotherapy for his lung cancer. PAST MEDICAL HISTORY: 1. Mild coronary atherosclerosis. 2. Severe COPD requiring chronic home oxygen. 3. Extensive bilateral non-small cell lung cancer. 4. Hypertension. 5. Gastroesophageal reflux disease. PAST SURGICAL HISTORY: Right lens implant, left lower extremity pin for a fracture, and CT-guided lung biopsy. ALLERGIES: He has no known drug allergies. MEDICATIONS PRIOR TO ADMISSION: As listed. SOCIAL HISTORY: The patient has a long history of cigarette smoking and has currently cut down to about a half a pack of cigarettes per day. He does use oral tobacco. He does not use alcohol. He is . FAMILY HISTORY: Negative for premature coronary disease. REVIEW OF SYSTEMS: Pulmonary: Noteworthy for dyspnea and cough productive of yellow sputum. There has been no orthopnea. Gastrointestinal: Noncontributory beyond history of present illness. Constitutional: Noncontributory beyond history of present illness. PHYSICAL EXAMINATION: General: Exam reveals a chronically ill-appearing, older white male, in no distress. Vital Signs: Blood pressure 148/77, heart rate 78 and regular. Oxygen saturation 93% to 96% percent on nasal cannula oxygen at 5 L/minute. HEENT: Extraocular movements intact. Mucous membranes moist. Neck: Supple. Jugular venous pressure appears to be normal based on inspection of the neck veins. Chest: Auscultation of the chest reveals diffuse inspiratory crackles with few rhonchi. Cardiac: Exam reveals a regular rate and rhythm without appreciable murmur or gallop. Abdomen: Soft, nontender. Bowel sounds are normal. Extremities: Demonstrate mild pretibial edema. Neurologic: Exam reveals him to be alert and fully oriented. Speech is fluent. Moves all 4 extremities equally well. Skin: Warm and dry. Psychiatric: Reveals his mood to be appropriate. PERTINENT DATA: Twelve-lead EKG demonstrates sinus rhythm with Mobitz 1 second-degree AV block (Wenckebach) and nonspecific ST abnormality. Chest x-ray is reviewed and demonstrates extensive pulmonary infiltrates very atypical for pulmonary edema probably due to patient's non-small cell lung cancer. LABORATORY DATA: White blood cell count of 9.33, hematocrit 38.8, hemoglobin 12.0, platelet count 179,000. Sodium 139, potassium 3.7, chloride 103, carbon dioxide 26. BUN 14, creatinine 0.6, glucose 205. Initial troponin 0.077. Follow-up troponin 0.075. Initial CPK 58. Follow-up CPK 45. Pro B natriuretic peptide level on admission 606. Albumin on admission 3.6 cc: Shane Hauser MD
[2018-10-31] MEDS: MIRALAX PO SCH ×2 (17:06→21:28)
[2018-10-31] MEDS: MAXIPIME 1 GM in NS 50 ML IV SCH (17:07)
[2018-10-31] MEDS: LEVAQUIN 500 MG/D5W 500 MG/100 ML IVPB IV SCH (17:18)
--- NOTE | 2018-10-31 19:30 | PROGRESS NOTE ---
DATE: 10/31/2018 SUBJECTIVE: The patient was noted to be in mild respiratory distress this morning. He stated that he could not breathe. OBJECTIVE: Vital Signs: Temperature 97.3 degrees, blood pressure 139/59, heart rate 67, respirations 16, O2 saturation 92% on 5 L nasal cannula. General: This is a chronically ill- appearing elderly male sitting at the edge of the bed in moderate distress. Heart: S1, S2 normal. Regular rate and rhythm. Lungs: Coarse breath sounds with rhonchi bilaterally. Abdomen: Positive bowel sounds. Soft, nontender, nondistended. Extremities: 2+ pitting edema. Neuro: The patient is alert and oriented x3. LABS: White blood cell count 9.3, hemoglobin 12, hematocrit 38, platelets 179, 000, sodium 139, potassium 3.7, chloride 103, CO2 26, BUN 14, creatinine 0.6, glucose 205, ProBNP 640. Chest x-ray shows interval worsening with cardiomegaly. Dense bilateral infiltrates are present. ASSESSMENT AND PLAN: 1. Acute hypoxemic respiratory failure. Multifactorial. The patient has extensive lung cancer plus possible pulmonary edema. Will start the patient on diuretic therapy and repeat a chest x-ray tomorrow and monitor the patient's respiratory status closely. Pulmonary has been consulted. 2. History of anterior pericardial effusion. Will consult with the dialysis chief equipment technician. The patient may need a repeat echocardiogram. 3. Chronic obstructive pulmonary disease. Continue on bronchodilator therapy and supplemental oxygen. 4. Adenocarcinoma of the lung. Dr. Onofre is following. Once the patient is medically stable a Port-A-Cath will be placed. 5. Peripheral edema. The patient is on diuretic therapy. Will continue to monitor the patient closely for improvement. 6. Anxiety disorder. Continue on Xanax p.r.n. 7. Deep vein thrombosis prophylaxis. Will start the patient on Lovenox. cc: Stephanie Cortez MD MTDD
--- NOTE | 2018-10-31 19:38 | CONSULTATION ---
DATE OF CONSULTATION: 10/31/2018 REQUESTING PROVIDER: Dr. Stephanie Cortez. REASON FOR CONSULTATION: Respiratory failure. HISTORY OF PRESENT ILLNESS: This is a 73-year-old male with medical history of hypertension, early dementia, newly diagnosed metastatic lung adenocarcinoma, chronic pain syndrome and longstanding tobacco abuse. He was last admitted on 10/14/2018 to 2018 for community-acquired pneumonia. And CT scan on 10/15/2018 revealed SERA mass with CT biopsy done on 2018. Patient came back to the ER on 10/28/2018 with worsening SOB, lower extremity edema, productive cough, and wheezing for 3 to 4 days. He has been admitted for hospital-acquired pneumonia, acute on chronic respiratory failure and lung cancer. At the time of my exam, he reports continuous severe SOB and productive cough with scant yellow phlegm. He denies fever, chill, N/V/D, poor appetite, chest pain or palpitation. Patient 's ex- is at the bedside. She reports patient has confusion at times and he did not use oxygen at home as he should. She also reports patient has constipation. PAST MEDICAL HISTORY: 1. Hypertension. 2. Early dementia. 3. Newly diagnosed metastatic lung adenocarcinoma, on home oxygen since [address] Onofre 4. Chronic pain syndrome on chronic narcotics 5. Longstanding tobacco abuse, smoking and smokeless PAST SURGICAL HISTORY: Right eye lens implant and left lower extremity pins placed for fracture. 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 He currently lives at home and his ex- who lives next to him helps to take care of him. He has a long history of tobacco use. Currently he takes half a pack per day. He dips Skoal about 1/4 of a can per day. He reports no history of alcohol or illicit drug use. FAMILY HISTORY: His mother has diabetes. Father unknown. ALLERGIES: No known drug allergies. REVIEW OF SYSTEMS: A 10-point review of systems was conducted and the pertinents listed within the HPI. Otherwise, noncontributory. PHYSICAL EXAMINATION: Vital Signs: Temperature 97.7, blood pressure 148/77, pulse 66, respiration rate 24, oxygen saturation 96% on nasal cannula at 5 L. General: This is a 77-year- old male who appears anxious and in mild respiratory distress at this time. The patient's ex- is by the bedside. HEENT: Atraumatic. Trachea midline. Mucosa pink and moist. Respiratory: Diminished breathing sounds bibasilarly with early inspiratory crackles noted. There is no wheezing noted. Cardiovascular: Regular rate and rhythm without murmur. Gastrointestinal: Normoactive bowel sounds in all 4 quadrants. Soft, nontender , nondistended. Extremities: Bilateral lower extremities pedal edema 2+. No clubbing, no cyanosis. Neurologic: The patient is alert and oriented x 3; speech is slow, but fluent. Able to move all extremities equally bilaterally. DIAGNOSTIC DATA: Chest x-ray revealed interval worsening of dense bilateral infiltrates and small pleural effusions. LAB DATA: White blood cells 7.33, hemoglobin 12.0, hematocrit 38.8, platelet 179,000. Sodium 139, potassium 3.7, chloride 104, carbon dioxide 26, BUN 14, creatinine 0.6 and glucose 205. ABG: pH 7.36, pCO2 50, PO2 70, HC03 26.3, base excess 2.0 and oxyhemoglobin 91.2. ASSESSMENT AND PLAN: This is a 73-year-old male with medical history of hypertension, early dementia, newly diagnosed metastatic lung adenocarcinoma, chronic pain syndrome and longstanding tobacco abuse. He has been admitted for hospital-acquired pneumonia and respiratory failure. 1. Hospital-acquired pneumonia. Continue antibiotics and supplemental oxygen. Agree to check procalcitonin. 2. Acute on chronic hypoxemic hypercapnic respiratory failure. Continue supplemental oxygen; continue bronchodilators; will consider BiPAP if needed; routine ABG and CXR if indicated. 4. Recently diagnosed lung cancer. Followed by Dr. Onofre. 5. Continue GI and DVT prophylaxis. Thank you for the courtesy of this consult. Dictated by SUNSHINE Galindo for Nish Albarran MD cc: SUNSHINE Galindo MD [facility]
[2018-10-31] MEDS: LASIX IV SCH (21:25)
[2018-10-31] MEDS: XANAX PO PRN (21:28)
[2018-11-01] MEDS: DUONEB (A & A) INH SCH ×4 (03:41→21:53)
[2018-11-01] MEDS: MAXIPIME 1 GM in NS 50 ML IV SCH ×2 (04:25→14:21)
--- NOTE | 2018-11-01 06:26 | GENERAL SURGERY PROGRESS NOTE ---
DATE: 11/01/2018 Postponed the case yesterday secondary to concerns about cardiopulmonary status. At this point, I will continue to follow the patient. I can place a port once everyone is in agreement that it is safe to proceed. The patient is aware of the risks of the procedure so, again, once deemed safe can place the port. cc: Luis M Reagan MD
--- NOTE | 2018-11-01 06:42 | HEMO/ONC PROGRESS NOTE ---
DATE: 10/31/2018 SUBJECTIVE: The patient complaining of chest pain and increased shortness of breath at this time. OBJECTIVE: Vital Signs: Temperature 97.7, heart rate 66, respiratory rate 24, blood pressure 148/77. Sat 96% on nasal cannula. General: The patient is awake, sitting up in bed with no chest pain or shortness of breath. HEENT: Anicteric. Pupils PERRLA. Mucous membranes dry. Chest: Bilateral breath sounds diminished bilaterally. Cardiovascular: S1, S2. Abdomen: Soft, nontender. Bowel sounds present in all 4 quadrants. Neurologic: Alert and oriented x3. No focal deficits noted. LABORATORY DATA: White count 9.33, hemoglobin 12.0, hematocrit 38.0, platelets are 179. Potassium 3.7. BUN 14, creatinine 0.6. ASSESSMENT AND PLAN: 1. Metastatic lung adenocarcinoma: The patient is post Port-A-Cath placement today. Surgery has been canceled due to increased shortness of breath and chest pain. Continue to monitor at this time. Once patient is discharged, hopefully, we can get him started on chemotherapy as soon as possible. 2. Pneumonia: Antibiotics have been discontinued. Continue recommendations per medical team. 3. Oral Candidiasis. Continue with Diflucan. 4. Increased shortness of breath and chest pain: Cardiology consulted. Plan of care discussed with Dr. Onofre. Dictated by SUNSHINE Castellano for Laureano Onofre MD Patient seen and examined. As above. Patient had worsening shortness of breath overnight. Chest x-ray revealed increasing pulmonary congestion. He has been on normal saline. That has been discontinued. Leg edema also has worsened. About 60 minutes ago, he received IV Lasix. He reports that her shortness of breath has improved in the meanwhile. Cardiology and pulmonary medicine has been consulted. Check CEA to make sure his cancer is not getting worse. Laureano Onofre M.D. cc: SUNSHINE Castellano MD [facility]
[2018-11-01 07:39] LABS: BASO# 0.02 X1000 (0.0-0.2); BASO% 0.2 % (0.0-0.8); EOS# 0.19 X1000 (0.0-0.7); EOS% 1.9 % (0.0-10.0); HEMATOCRIT 37.9 % (42.0-52.0); HEMOGLOBIN 11.9 g/dL (14.0-18.0); IMM GRAN# 0.02 X1000 (0.0-0.04); IMM GRAN% 0.2 % (0.0-0.5); LYMPH# 1.38 X1000 (1.2-3.4); LYMPH% 14.1 % (20.5-51.1); MCH 28.7 PG (27-31); MCHC 31.4 g/dL (33-37); MCV 91.3 FL (81-99); MONO# 0.82 X1000 (0.11-0.59); MONO% 8.4 % (1.7-9.3); MPV 11.3 FL (7.4-10.4); NEUT# 7.34 X1000 (1.4-6.5); NEUT% 75.2 % (42.2-75.2); PLT 165 X1000 (130-400); RBC 4.15 XMIL (4.7-6.1); RDW 15.5 % (11.5-14.5); WBC 9.77 X1000 (4.8-10.8)
--- NOTE | 2018-11-01 07:57 | Diag Imaging Result Doc PS360 ---
CHEST-PORTABLE - 11/01/2018 INDICATION: pulmonary edema COMPARISON: 10/31/2018 FINDINGS: There are stable extensive bilateral interstitial infiltrates. Stable cardiomegaly. No pneumothorax or large pleural effusion. IMPRESSION: No change from prior. Electronically signed by Gregory Briones 11/01/2018 7:54 AM
[2018-11-01 08:16] LABS: AGAP 13; BUN 14 mg/dL (8-22); CALCIUM 8.5 mg/dL (8.8-10.2); CHLORIDE 97 mmol/L (98-107); COSMO 280; CREATININE 0.8 mg/dL (0.7-1.2); ESTIMATED GFR > 60; GLUCOSE 129 mg/dL (70-104); POTASSIUM 3.5 mmol/L (3.5-5.1); SODIUM 139 mmol/L (136-145); TCO2 29 mmol/L (25-35)
[2018-11-01] MEDS: LASIX IV SCH ×2 (08:21→21:06)
[2018-11-01] MEDS: DIFLUCAN PO SCH (08:21)
[2018-11-01] MEDS: MIRALAX PO SCH ×2 (08:21→21:05)
[2018-11-01] MEDS: FLOMAX PO SCH (08:21)
[2018-11-01] MEDS: LEVAQUIN 500 MG/D5W 500 MG/100 ML IVPB IV SCH (08:23)
[2018-11-01] MEDS: LOVENOX SUBQ SCH (08:50)
--- NOTE | 2018-11-01 09:08 | HEMO/ONC CONSULTATION ---
DATE: 11/01/2018 SUBJECTIVE: The patient says his breathing is improved. The patient says his chest pain is resolved. OBJECTIVE: Vital Signs: Temperature of 99.0 degrees, heart rate 60, respiratory rate 18, blood pressure is 92/45, saturating 90% on nasal cannula. General: The patient is awake, lying in bed. No acute distress noted. HEENT: Anicteric. Pupils PERRLA. Mucous appear to be dry. Chest: Bilateral breath sounds diminished bilaterally. Abdomen: Soft, nontender. Bowel sounds present in all 4 quadrants. Neurologic: Alert and oriented x3. No focal deficits noted. Laboratory Data: White blood cell count is 9.77, hemoglobin 10.9, hematocrit 37.9, platelets are 165,000. Potassium 3.5, BUN 14, creatinine 0.8. ASSESSMENT/PLAN: 1. Metastatic lung adenocarcinoma: Port-A-Cath placement is on hold until cleared by cardiology. Once the patient is cleared per other physicians, the patient will be scheduled for Port-A- Cath placement so we get him started on chemotherapy soon as possible. 2. Pneumonia: The patient is on antibiotics at this time. Continue recommendations per pulmonology and primary medical team. 3. Oral candidiasis: The patient is on Diflucan. Continues to improve. 4. Shortness of breath and chest pain: Improved at this time. The patient will be followed by cardiology as well. Continue to monitor and follow. Dictated by SUNSHINE Castellano for Laureano Onofre MD Patient seen and examined. As above. Patient appears to be better from shortness of breath. He has received Lasix yesterday and today. Leg edema is better as well. He has been seen by cardiology/pulmonary medicine. Antibiotics have been restarted. Oral candidiasis has improved. Due to Levaquin and Diflucan interaction, I will discontinue Diflucan and start him on nystatin. CEA is unchanged over the last 3 weeks suggesting that his lymphangitic spread of cancer may be stable, however he needs therapy as soon as possible, because sometimes this scenario can deteriorate quickly. Laureano Onofre M.D. cc: SUNSHINE Castellano MD [facility]
--- NOTE | 2018-11-01 15:16 | ECHO REPORT ---
ORDER DATE: 10/31/2018 INDICATION: Re-evaluate pericardial effusion. FINDINGS: This is a limited study: 1. The left ventricle appears to be normal in size and function with an estimated EF greater than 55%. 2. There is normal RV size and systolic function. 3. There is a small predominantly anterior pericardial effusion. There does not appear to be any evidence of tamponade physiology on this study. 4. There is no evidence of mitral valve prolapse. 5. The aortic valve appears to open well. 6. No Doppler evaluations were done on this study. cc: MD Stephanie Krueger MD
[2018-11-01] MEDS: XANAX PO PRN (21:06)
--- NOTE | 2018-11-01 23:53 | PROGRESS NOTE ---
DATE: 11/01/2018 SUBJECTIVE: Patient relates feeling some improvement over the last 24 hours. His cough is less productive at this point. There has been no chest pain. OBJECTIVE: Vital Signs: Blood pressure 127/78, heart rate 90, oxygen saturation 98% on nasal cannula oxygen. Neck: There is no significant jugular venous distention. Chest: Auscultation of the chest reveals diminished breath sounds diffusely. No rales could be appreciated. No wheezes are apparent. Cardiac: Exam reveals a regular rate and rhythm without appreciable murmur or gallop. Extremities: Demonstrate mild ankle edema. DIAGNOSTICS: Limited repeat echocardiography shows normal left ventricular systolic function. There is a small anterior pericardial effusion which has not increased in size since last study. There is no evidence of tamponade. LABORATORY DATA: A white blood cell count of 9.77, hematocrit 37.9, hemoglobin 11.9, platelet count 165,000. Sodium 139, potassium 3.5, chloride 97, carbon dioxide 29, BUN 14, creatinine 0.8, glucose 129. Repeat pro B-natriuretic peptide level 640. Albumin 3.0. IMPRESSION: 1. Small pericardial effusion, unchanged on repeat limited echocardiography with no evidence tamponade. 2. Normal left ventricular systolic function with unimpressive B-type natriuretic peptide level. Doubt any significant CHF causing his respiratory difficulties in light of these findings and chest x-ray findings. 3. Extensive pulmonary disease with metastatic non-small cell lung cancer as well as underlying chronic obstructive pulmonary disease. 4. Possible superimposed pneumonia as well. 5. Mild coronary atherosclerosis in the past. 6. Hypertension. 7. Gastroesophageal reflux disease. RECOMMENDATIONS: No further cardiovascular testing appears to be warranted at this time. I suspect his dyspnea is in large part related to his extensive pulmonary disease and metastatic lung cancer. I will see further on an as needed basis. cc: Shane Hauser MD
--- NOTE | 2018-11-02 00:52 | PROGRESS NOTE ---
DATE: 11/01/2018 SUBJECTIVE: The patient states that he feels a lot better. He is sitting up at the edge of the bed. He does not have any increased work of breathing at this time, and his edema in his legs has improved. OBJECTIVE: Vital Signs: Temperature 94.5 degrees, blood pressure 127/78, heart rate 90, respirations 18, O2 saturation 98% on 5 L nasal cannula. Urine output 1.2 L. General: This is a chronically ill-appearing, elderly male sitting at the edge of the bed, in no acute distress. HEENT: Head normocephalic, atraumatic. Heart: S1, S2 normal. Regular rate and rhythm. Lungs: Diminished breath sounds at the bases. Poor air entry bilaterally. No wheezing. No crackles. Abdomen: Positive bowel sounds. Soft, nontender, nondistended. No rebound tenderness. Extremities: 1+ edema. No cyanosis. No calf tenderness. Neurologic: The patient is alert and oriented x4. LABORATORIES: White blood cell count 9.7, hemoglobin 11, hematocrit 37, platelets 165,000. Sodium 139, potassium 3.5, chloride 97, CO2 of 29, BUN 14, creatinine 0.8, glucose 129, calcium 8.5. ASSESSMENT AND PLAN: 1. Acute on chronic hypoxemic respiratory failure. Multifactorial. The patient 's pulmonary edema appears to have improved on chest x-ray and clinically. We will continue with diuretic therapy and monitor the patient's respiratory status closely. Pulmonary is following. 2. Acute pulmonary edema. Improved. Continue with diuretic therapy. 3. Anterior pericardial effusion. The repeat echocardiogram shows that this is small with no tamponade physiology. 4. Chronic obstructive pulmonary disease. Continue with bronchodilator therapy and supplemental oxygen. 5. Lung adenocarcinoma. Dr. Onofre is following. Once the patient is stable from a respiratory standpoint, a port will be placed. 6. Anxiety disorder. Continue on Xanax as needed. 7. Deep vein thrombosis prophylaxis. Continue on Lovenox. cc: Stephanie Cortez MD MTDD
[2018-11-02] MEDS: MORPHINE IV PRN ×3 (02:11→20:56)
[2018-11-02] MEDS: MAXIPIME 1 GM in NS 50 ML IV SCH ×2 (02:16→15:42)
[2018-11-02] MEDS: DUONEB (A & A) INH SCH ×4 (04:18→22:30)
--- NOTE | 2018-11-02 07:05 | Diag Imaging Result Doc PS360 ---
EXAM: CHEST-PORTABLE 11/02/2018 HISTORY: dyspnea TECHNIQUE: AP portable at 0630 COMMENT: There is diffuse interstitial and some alveolar opacity particularly the latter in the left upper lobe. Compared to the previous study of 11/01/2018 considering differences in inspiration this has not changed significantly. IMPRESSION: Pulmonary edema plus minus pneumonia. Electronically signed by Prasanna Luu 11/02/2018 7:03 AM
[2018-11-02 07:22] LABS: BASO# 0.03 X1000 (0.0-0.2); BASO% 0.3 % (0.0-0.8); HEMOGLOBIN 12.1 g/dL (14.0-18.0); RDW 15.7 % (11.5-14.5)
[2018-11-02 07:34] LABS: EOS% 3.2 % (0.0-10.0); HEMATOCRIT 38.6 % (42.0-52.0); IMM GRAN# 0.03 X1000 (0.0-0.04); IMM GRAN% 0.3 % (0.0-0.5); LYMPH# 1.04 X1000 (1.2-3.4); LYMPH% 10.9 % (20.5-51.1); MCH 28.5 PG (27-31); MCHC 31.3 g/dL (33-37); MONO# 0.96 X1000 (0.11-0.59); MONO% 10.1 % (1.7-9.3); MPV 11.9 FL (7.4-10.4); NEUT# 7.15 X1000 (1.4-6.5); NEUT% 75.2 % (42.2-75.2); PLT 185 X1000 (130-400); RBC 4.24 XMIL (4.7-6.1); WBC 9.51 X1000 (4.8-10.8)
[2018-11-02 07:44] LABS: AGAP 10; BUN 16 mg/dL (8-22); CALCIUM 8.6 mg/dL (8.8-10.2); CHLORIDE 96 mmol/L (98-107); COSMO 283; CREATININE 0.9 mg/dL (0.7-1.2); ESTIMATED GFR > 60; GLUCOSE 144 mg/dL (70-104); POTASSIUM 3.2 mmol/L (3.5-5.1); SODIUM 140 mmol/L (136-145); TCO2 34 mmol/L (25-35)
[2018-11-02] MEDS ORDERED: KLOR-CON PO ONE (07:56)
[2018-11-02] MEDS ORDERED: MYCOSTATIN SUSP PO SCH (09:00)
[2018-11-02] MEDS ORDERED: LASIX PO SCH (09:00)
--- NOTE | 2018-11-02 09:00 | HEMO/ONC PROGRESS NOTE ---
DATE: 11/02/2018 SUBJECTIVE: The patient says he is slightly better at this time. The patient says no pain. OBJECTIVE: Vital Signs: Temperature 97.9 degrees, heart rate 80, respiratory rate 20, blood pressure 145/93, satting 92% on nasal cannula. General: Patient is awake, lying in bed, no acute distress noted. HEENT: Anicteric. Pupils PERRLA. Mucous membranes moist. Chest: Bilateral breath sounds diminished bilaterally. Abdomen: Soft, nontender. Bowel sounds present all 4 quadrants. Neurologic: Alert and oriented x3. No focal deficits noted. LABORATORY DATA: White blood cell count 9.51, hemoglobin 12.1, hematocrit 38.6 , platelets 185. Potassium 3.2, BUN 16, creatinine 0.9. ASSESSMENT AND PLAN: 1. Metastatic lung adenocarcinoma: Hopefully, the patient will have Port-A- Cath placement today. Patient will start Chemotherapy in hospital tomorrow. 2. Pneumonia: Continue recommendations per Pulmonology. 3. Oral candidiasis: The patient will continue on nystatin swish and swallow at this time. Dictated by SUNSHINE Castellano for Laureano Onofre MD Patient seen and examined. As above. Patient reports that his shortness of breath has improved over the last 2 days with diuresis. It is possible that he had a little volume overload from his IV fluids. However it is also clear that his oxygen requirements over the last 2 weeks have increased. He is currently needing 5 L of O2. This is most likely due to his worsening lymphangitic spread. I do not think he had pneumonia, however we can continue his antibiotics. It is expected that his condition from his cancer standpoint were to worsen soon if we do not treat. We will get him started on chemotherapy with carboplatin and Alimta tomorrow if possible. Laureano Onofre M.D. cc: SUNSHINE Castellano MD [facility]
[2018-11-02] MEDS: LEVAQUIN 500 MG/D5W 500 MG/100 ML IVPB IV SCH (09:27)
[2018-11-02] MEDS: LOVENOX SUBQ SCH (09:28)
[2018-11-02] MEDS: MIRALAX PO SCH ×2 (09:28→20:55)
[2018-11-02] MEDS: FLOMAX PO SCH (09:28)
[2018-11-02] MEDS: LASIX IV SCH ×2 (09:32→20:56)
--- NOTE | 2018-11-02 10:45 | Diag Imaging Result Doc PS360 ---
EXAM: CT THORAX W/O CONTRAST 11/02/2018 HISTORY: pulmonary edema/lung cancer TECHNIQUE: This exam was performed using automated exposure control, adjustment of mA or kV according to patient size, and/or use of iterative reconstruction technique. COMMENT: The current exam is compared with the previous study of 10/15/2018. Compared to the previous examination the left pleural effusion has diminished slightly. There is a small right pleural effusion, and there continues to be a pericardial effusion which over the apex now measures less than 12 mm. This is smaller than on the previous study. There is increased interstitial markings throughout both lungs but worse in the left upper lobe than in the right upper lobe. This was also the case at the time the previous study and may represent lymphatic obstruction/lymphangitic spread due to the known left upper lobe carcinoma. The anterior upper lobe mass which was demonstrated the time the previous study measures in excess of 3.6 cm in AP dimension, which is slightly larger than on the previous examination. There is a dense area of consolidation also on image 42 which appears slightly larger at almost 17 mm in AP dimension compared to over 12 mm previously. The right middle lobe nodule on image 72 measures slightly less than 2.1 cm in AP dimension which is slightly larger than the 18th millimeters on the previous study. There are multiple basilar nodules bilaterally consistent with metastatic lesions. One posteriorly located in the right lower lobe on image 91 is definitely more conspicuous than on the previous study as is the nodule posteriorly in the left lower lobe on image 85 which was present on image 81 at the time the previous study. IMPRESSION: Worsening masses in the left upper lobe and metastatic nodules. Pulmonary edema and lymphangitic spread of carcinoma particularly in the left upper lobe. Stable mediastinal adenopathy. Electronically signed by Prasanna Luu 11/02/2018 10:42 AM
--- NOTE | 2018-11-02 19:34 | PROGRESS NOTE ---
DATE: 11/02/2018 SUBJECTIVE: The patient is resting comfortably in bed. He states that his shortness of breath has improved; however, he is still requiring 5 L of supplemental oxygen to maintain adequate oxygenation. OBJECTIVE: Vital Signs: Temperature 98.1, blood pressure 108/49, heart rate 75, respirations 20, O2 sats 92% on 5 L nasal cannula. Urine output 2 L. General: This is a chronically ill- appearing elderly male lying in bed in no acute distress. HEENT: Head normocephalic, atraumatic. Heart: S1, S2 normal. Regular rate and rhythm. Lungs: Diminished breath sounds bilaterally. No crackles. Abdomen: Positive bowel sounds. Soft, nontender, nondistended. Extremities: Trace pedal edema. No cyanosis. No calf tenderness. Neurologic: The patient is alert and oriented x 4. LABS: White blood cell count 9.5, hemoglobin 12, hematocrit 38, platelets 185,000. Sodium 140, potassium 3.2, chloride 96, CO2 34, BUN 16, creatinine 0.9, glucose 144, phosphorus 3, magnesium 2. CT of the chest shows worsening masses in the left upper lobe with metastatic nodules. Pulmonary edema and lymphangitic spread of the carcinoma in the left upper lobe. ASSESSMENT AND PLAN: 1. Acute on chronic hypoxemic respiratory failure. The patient's CT does show worsening of the patient's lung cancer. There is also some pulmonary edema as well. The case was discussed with Dr. Onofre and he will be having a discussion with the patient and his daughter regarding treatment. 2. Pulmonary edema. We will continue with diuretic therapy. 3. Anterior pericardial effusion. Stable. 4. COPD. Continue on bronchodilator therapy. 5. Lung adenocarcinoma. Dr. Onofre will be discussing treatment with the patient and his daughter today. 6. Anxiety disorder. Continue on Xanax as needed. 7. DVT prophylaxis. Continue on Lovenox. 8. GI prophylaxis. Continue on Protonix. cc: Stephanie Cortez MD
[2018-11-02] MEDS: XANAX PO PRN (20:56)
[2018-11-03] MEDS: MAXIPIME 1 GM in NS 50 ML IV SCH ×2 (03:03→17:53)
[2018-11-03] MEDS: MORPHINE IV PRN ×2 (03:06→06:24)
[2018-11-03] MEDS: DUONEB (A & A) INH SCH ×4 (03:46→21:00)
[2018-11-03] MEDS ORDERED: SODIUM CHLORIDE 0.9% INJ PRN (07:48)
[2018-11-03] MEDS ORDERED: REGLAN IV PRN ×2 (07:48→12:14)
--- NOTE | 2018-11-03 08:06 | HEMO/ONC PROGRESS NOTE ---
DATE: 11/03/2018 SUBJECTIVE: The patient says his shortness of breath has improved at this time , as long as he is wearing his oxygen. The patient denies any other complaints at this time. OBJECTIVE: Vital Signs: Temperature 98.2 degrees, heart rate 84, respiratory rate 22, blood pressure 120/65, saturating 94% on nasal cannula. General: Patient is awake, lying in bed, no acute distress noted. HEENT: Anicteric. Pupils PERRLA. Mucous membranes moist. Chest: Bilateral breath sounds diminished bilaterally. Abdomen: Soft, nontender. Bowel sounds present all 4 quadrants. Neurologic: Alert and oriented x3. No focal deficits noted. LABORATORY DATA: White blood cell count 9.51, hemoglobin 12.1, hematocrit 38.6 , platelets are 185. Potassium 3.2, BUN 16, creatinine 0.9. ASSESSMENT AND PLAN: 1. Metastatic lung adenocarcinoma: The patient will be started on his carboplatin and Alimta chemotherapy today. Side-effect profile was discussed with patient and family. They all verbalized understanding. 2. Antinausea prophylaxis: Patient will receive Zofran and Decadron prior to treatment. The patient also has p.r.n. medications as ordered as needed for nausea. We will continue to monitor that closely. 3. Neutropenia prophylaxis precautions: Monitor complete blood count daily. We will continue to monitor for fevers. 4. Pneumonia: Continue recommendations per pulmonology. 5. Oral candidiasis. The patient his nystatin swish and swallow. 6. Deep venous thrombosis prophylaxis. Continue Lovenox as ordered. Plan of care discussed with Dr. Onofre. Dictated by SUNSHINE Castellano for Laureano Onofre MD Patient seen and examined. As above. We have made arrangements to start him on carboplatin and Alimta chemotherapy. Due to his poor performance status we will decrease his dose. Monitor for infusional reactions and side effects. Discussed case with Dr. Cortez. Laureano Onofre M.D. cc: SUNSHINE Castellano MD [facility]
[2018-11-03 08:26] LABS: BASO# 0.03 X1000 (0.0-0.2); BASO% 0.3 % (0.0-0.8); EOS# 0.48 X1000 (0.0-0.7); EOS% 4.3 % (0.0-10.0); HEMATOCRIT 42.8 % (42.0-52.0); HEMOGLOBIN 13.1 g/dL (14.0-18.0); IMM GRAN# 0.06 X1000 (0.0-0.04); IMM GRAN% 0.5 % (0.0-0.5); LYMPH# 1.54 X1000 (1.2-3.4); LYMPH% 13.9 % (20.5-51.1); MCH 28.2 PG (27-31); MCHC 30.6 g/dL (33-37); MONO# 1.03 X1000 (0.11-0.59); MONO% 9.3 % (1.7-9.3); MPV 11.6 FL (7.4-10.4); NEUT# 7.92 X1000 (1.4-6.5); NEUT% 71.7 % (42.2-75.2); PLT 203 X1000 (130-400); RBC 4.65 XMIL (4.7-6.1); RDW 15.8 % (11.5-14.5); WBC 11.06 X1000 (4.8-10.8)
[2018-11-03 09:09] LABS: AGAP 10; BUN 17 mg/dL (8-22); CALCIUM 9.4 mg/dL (8.8-10.2); CHLORIDE 94 mmol/L (98-107); COSMO 286; CREATININE 0.9 mg/dL (0.7-1.2); ESTIMATED GFR > 60; GLUCOSE 182 mg/dL (70-104); POTASSIUM 4.2 mmol/L (3.5-5.1); SODIUM 140 mmol/L (136-145); TCO2 36 mmol/L (25-35)
[2018-11-03] MEDS: MIRALAX PO SCH ×2 (10:21→20:36)
[2018-11-03] MEDS: LASIX IV SCH ×2 (10:22→20:37)
[2018-11-03] MEDS: FLOMAX PO SCH (10:22)
[2018-11-03] MEDS: LOVENOX SUBQ SCH (10:22)
[2018-11-03] MEDS: XANAX PO PRN ×2 (10:46→20:42)
[2018-11-03] MEDS ORDERED: CYANOCOBALAMIN IM ONE (13:00)
[2018-11-03] MEDS ORDERED: ZOFRAN 16 MG in NS 100 ML IV ONE (13:00)
[2018-11-03] MEDS ORDERED: DECADRON 20 MG in NS 100 ML IV ONE (13:00)
[2018-11-03] MEDS ORDERED: NS IV ONE ×2 (14:30→15:00)
[2018-11-03] MEDS ORDERED: ALIMTA IV ONE (14:30)
[2018-11-03] MEDS ORDERED: PARAPLATIN IV ONE (15:00)
[2018-11-03] MEDS: PHENERGAN IV PRN ×2 (17:54→18:00)
[2018-11-03] MEDS: DILAUDID IV PRN (19:10)
--- NOTE | 2018-11-03 19:13 | PROGRESS NOTE ---
DATE: 11/03/2018 SUBJECTIVE: The patient is resting comfortably in bed. No acute events noted overnight. OBJECTIVE: Vital Signs: Temperature 98.8 degrees, blood pressure 126/60, heart rate 82, respirations 18, O2 saturations 92% on 5 L nasal cannula, urine output 1 L. General: This is a chronically ill-appearing elderly male sitting at the edge of the bed in no acute distress. Heart: S1, S2 normal. Regular rate and rhythm. Lungs: Diminished breath sounds bilaterally. Abdomen: Positive bowel sounds. Soft, nontender, nondistended. Extremities: 1+ edema. No cyanosis, no calf tenderness. Neuro: The patient is alert and oriented x3. LABS: White blood cell count 11, hematocrit 42, platelets 203,000, sodium 140, potassium 4.2, chloride 94, CO2 36, BUN 17, creatinine 0.9, glucose 182. ASSESSMENT AND PLAN: 1. Acute on chronic hypoxemic respiratory failure. Multifactorial. Patient has lymphangitis spread of his cancer as well as some pulmonary edema. Will continue with diuretic therapy. Also the patient has been started on chemotherapy today, further management per the oncologist. 2. Pulmonary edema. Slowly improving. 3. Anterior pericardial effusion. Stable . 4. Chronic obstructive pulmonary disease. Continue bronchodilator therapy. 5. Lung adenocarcinoma. Continue with chemotherapy as stated by Dr. Onofre. 6. Anxiety disorder. Continue on Xanax as needed. 7. Deep vein thrombosis prophylaxis. Continue on Lovenox. 8. Gastrointestinal prophylaxis. Continue on Protonix. cc: Stephanie Cortez MD [facility]
--- NOTE | 2018-11-03 23:31 | PULMONOLOGY PROGRESS NOTE ---
DATE: 11/03/2018 SUBJECTIVE: The patient was sleeping upon arrival. He was arousable. He reported he develops shortness of breath with movement but no shortness of breath at rest. He does have some cough which is nonproductive. OBJECTIVE: The patient has been afebrile for the last 24 hours. Oxygen saturation 98% on 6 L per nasal cannula, BP 125/63, heart rate 80, respiratory rate 18.HEENT: Pupils are equal and reactive. Oropharynx is clear. Neck: Supple. Chest: Reveals prolonged expiratory phase with both crackles and rhonchi present. Cardiac: S1-S2. Abdomen: Soft without hepatosplenomegaly. Extremities: Without edema. LABORATORIES: CT scan of the thorax yesterday revealed worsening nodules and masses in the left upper lobe with evidence of lymphangitic spread. He has stable mediastinal adenopathy . IMPRESSION: 78-year-old with stage IV lung cancer, acute hypoxemic respiratory failure, pneumonia. PLAN: 1. Continue oxygen for hypoxemic respiratory failure. 2. Continue current antibiotic regimen. 3. Treatment of lung cancer per Dr. Onofre. cc: Luca Vanessa MD
[2018-11-04] MEDS: MAXIPIME 1 GM in NS 50 ML IV SCH ×2 (03:34→15:37)
[2018-11-04] MEDS: DILAUDID IV PRN ×3 (03:34→20:12)
[2018-11-04] MEDS: DUONEB (A & A) INH SCH ×4 (04:06→21:02)
[2018-11-04 07:54] LABS: BASO# 0.01 X1000 (0.0-0.2); BASO% 0.1 % (0.0-0.8); HEMATOCRIT 39.2 % (42.0-52.0); HEMOGLOBIN 12.1 g/dL (14.0-18.0); IMM GRAN# 0.03 X1000 (0.0-0.04); IMM GRAN% 0.3 % (0.0-0.5); LYMPH% 8.1 % (20.5-51.1); MCH 28.5 PG (27-31); MCHC 30.9 g/dL (33-37); MCV 92.2 FL (81-99); MONO# 0.44 X1000 (0.11-0.59); MONO% 4.5 % (1.7-9.3); MPV 11.7 FL (7.4-10.4); NEUT# 8.59 X1000 (1.4-6.5); PLT 198 X1000 (130-400); RBC 4.25 XMIL (4.7-6.1); RDW 14.9 % (11.5-14.5); WBC 9.87 X1000 (4.8-10.8)
[2018-11-04 08:00] LABS: AGAP 9; BUN 19 mg/dL (8-22); CALCIUM 9.3 mg/dL (8.8-10.2); CHLORIDE 94 mmol/L (98-107); COSMO 286; CREATININE 0.8 mg/dL (0.7-1.2); ESTIMATED GFR > 60; GLUCOSE 271 mg/dL (70-104); POTASSIUM 4.3 mmol/L (3.5-5.1); SODIUM 137 mmol/L (136-145); TCO2 34 mmol/L (25-35)
[2018-11-04 08:22] LABS: BANDS 6 % (0-1); LYMPHS 12 % (21-51); SEGS 82 % (42-75)
[2018-11-04] MEDS: LOVENOX SUBQ SCH (08:45)
[2018-11-04] MEDS: LASIX IV SCH ×2 (08:45→20:16)
[2018-11-04] MEDS: FLOMAX PO SCH (08:45)
[2018-11-04] MEDS: XANAX PO PRN ×2 (08:45→20:12)
[2018-11-04] MEDS: MIRALAX PO SCH ×2 (08:45→20:16)
--- NOTE | 2018-11-04 10:30 | HEMO/ONC PROGRESS NOTE ---
DATE: 11/04/2018 SUBJECTIVE: Patient says he did well with his chemotherapy yesterday. The patient's shortness of breath is slowly improving. OBJECTIVE: Vital Signs: Temperature of 98.0 degrees, heart rate 81, respiratory rate 18, blood pressure 139/83, satting 96% on nasal cannula. General: Patient is awake, lying in bed, no acute distress noted. HEENT: Anicteric. Pupils PERRLA. Mucous membranes appear to be moist. Chest: Breath sounds diminished bilaterally. Cardiovascular: S1, S2. Regular rate and rhythm. Abdomen: Soft, nontender. Bowel sounds present in all 4 quadrants. Neurologic: Alert and oriented x3. No focal deficits noted. LABORATORY DATA: Pending. ASSESSMENT AND PLAN: 1. Metastatic lung adenocarcinoma: The patient tolerated his chemotherapy pretty well yesterday. The patient denies any complaints at this time. Continue to monitor. 2. Antinausea prophylaxis: The patient denies any nausea at this time. Patient has PRN meds if needed. Continue to monitor. 3. Neutropenic prophylaxis: White blood cell count continues to be stable. Continue to monitor. 4. Pneumonia: Continue recommendations per Pulmonology. 5. Deep venous thrombosis prophylaxis: Continue Lovenox as ordered. 6. Supportive care: Continue with protein shakes four times daily. Continue to have patient get out of bed as much as possible. Dictated by SUNSHINE Castellano for Laureano Onofre MD cc: SUNSHINE Castellano MD [facility]
[2018-11-04] MEDS ORDERED: ZOFRAN 16 MG in NS 100 ML IV ONE (14:00)
--- NOTE | 2018-11-04 18:16 | PROGRESS NOTE ---
DATE: 11/04/2018 SUBJECTIVE: The patient is resting comfortably in bed. He has no complaints at this time. OBJECTIVE: Vital Signs: Temperature 98, blood pressure 106/58, heart rate 65, respirations 18, O2 saturation 98% on 6 L nasal cannula. General: This is an elderly male lying in bed in no acute distress. Heart: S1, S2 normal. Regular rate and rhythm. Lungs: Equal air entry bilaterally. No wheezing, no rales. Abdomen: Positive bowel sounds. Soft, nontender, nondistended. Extremities: No edema, no cyanosis. Neuro: The patient is alert and oriented x3. LABS: White blood cell count 9.8, hemoglobin 12, hematocrit 39, platelets 198,000, sodium 137, potassium 4.3, chloride 94, CO2 34, BUN 19, creatinine 0.8, glucose 271. ASSESSMENT AND PLAN: 1. Acute on chronic hypoxemic respiratory failure. The patient is requiring 6 L of supplemental oxygen to maintain his O2 saturations. The patient had his 1st chemotherapy treatment yesterday. Further management as per the oncologist. 2. Anterior pericardial effusion. Stable. 3. Chronic obstructive pulmonary disease. Continue bronchodilator therapy. 4. Lung adenocarcinoma. The patient received chemotherapy yesterday. Further management as per the oncologist. 5. Anxiety disorder. Continue on Xanax as needed. 6. Deep vein thrombosis prophylaxis. Continue on Lovenox. cc: Stephanie Cortez MD
--- NOTE | 2018-11-04 20:42 | PULMONOLOGY PROGRESS NOTE ---
DATE: 11/04/2018 SUBJECTIVE: Patient is awake, alert and conversant. He reports he is able to move to the bedside chair today without shortness of breath. He has a cough which is nonproductive. OBJECTIVE: Vital Signs: BP 106/58, heart rate 65, respiratory rate 18, oxygen saturation 97% on 6 L per nasal cannula. HEENT: Pupils are equal, reactive. Oropharynx is clear. Neck: Is supple. Chest: Reveals prolonged expiratory phase with crackles in the left midlung zone. Cardiac: S1-S2. Abdomen: Obese and soft. Extremities: Without edema. LABORATORIES: White blood count 9.87, hemoglobin 12.1, platelet count 198,000. Sodium 137, potassium 4.3, chloride 94, bicarbonate 34, BUN 19, creatinine 0.8. No new microbiology data. No new chest x-ray. IMPRESSION: A 78-year-old with stage IV lung cancer, acute hypoxemic respiratory failure, pneumonia, and dyspnea which is improving. RECOMMENDATIONS: 1. Continue oxygen for hypoxemic respiratory failure. 2. Continue current antibiotic regimen. 3. Continue treatment of lung cancer per Dr. Onofre. 4. Obtain portable chest x-ray tomorrow morning. cc: Luca Vanessa MD
[2018-11-05] MEDS: DILAUDID IV PRN ×4 (00:44→19:36)
[2018-11-05] MEDS: DUONEB (A & A) INH SCH ×4 (03:39→23:15)
[2018-11-05] MEDS: MAXIPIME 1 GM in NS 50 ML IV SCH ×2 (04:00→15:55)
[2018-11-05 07:36] LABS: BASO# 0.03 X1000 (0.0-0.2); BASO% 0.2 % (0.0-0.8); EOS# 0.09 X1000 (0.0-0.7); EOS% 0.5 % (0.0-10.0); HEMATOCRIT 38.4 % (42.0-52.0); HEMOGLOBIN 11.7 g/dL (14.0-18.0); IMM GRAN# 0.05 X1000 (0.0-0.04); IMM GRAN% 0.3 % (0.0-0.5); LYMPH# 1.29 X1000 (1.2-3.4); LYMPH% 7.5 % (20.5-51.1); MCH 28.3 PG (27-31); MCHC 30.5 g/dL (33-37); MCV 92.8 FL (81-99); MONO% 4.7 % (1.7-9.3); MPV 11.5 FL (7.4-10.4); NEUT# 14.89 X1000 (1.4-6.5); NEUT% 86.8 % (42.2-75.2); PLT 218 X1000 (130-400); RBC 4.14 XMIL (4.7-6.1); WBC 17.15 X1000 (4.8-10.8)
[2018-11-05 07:50] LABS: AGAP 10; BUN 22 mg/dL (8-22); CALCIUM 8.8 mg/dL (8.8-10.2); CHLORIDE 95 mmol/L (98-107); COSMO 284; CREATININE 0.8 mg/dL (0.7-1.2); ESTIMATED GFR > 60; GLUCOSE 150 mg/dL (70-104); POTASSIUM 4.4 mmol/L (3.5-5.1); SODIUM 139 mmol/L (136-145); TCO2 34 mmol/L (25-35)
--- NOTE | 2018-11-05 08:11 | Diag Imaging Result Doc PS360 ---
EXAM: CHEST-PORTABLE - 11/05/2018 HISTORY: abnormal exam TECHNIQUE: Portable chest COMPARISON: 11/02/2018 FINDINGS: Heart size appears mildly enlarged. There are bilateral infiltrates, most prominent on the left. Compared to prior, these appear essentially stable on the left and mildly increased on the right. There is no substantial pleural effusion or pneumothorax identified. IMPRESSION: Bilateral infiltrates, most prominent on the left. Compared to prior, these appear essentially stable on the left and mildly increased on the right. Electronically signed by David Wade 11/05/2018 8:09 AM
[2018-11-05] MEDS: FLOMAX PO SCH (08:40)
[2018-11-05] MEDS: LOVENOX SUBQ SCH (08:40)
[2018-11-05] MEDS: LASIX IV SCH ×2 (08:40→20:30)
[2018-11-05] MEDS ORDERED: MORPHINE IV ONE (09:16)
[2018-11-05] MEDS: NITROGLYCERIN ONE ×2 (09:30→09:36)
[2018-11-05] MEDS: NITROGLYCERIN SL PRN ×2 (09:30→09:35)
[2018-11-05 10:10] LABS: ALLEN TEST YES; BLOOD TYPE ARTERIAL; HCO3-(ACT) 33.5 mmoll (20.0-26.0); METHB 0.2 % (0.0-1.5); O2(CT) 14.9 mL/dL (15.0-23.0); O2HB 96.4 % (95.0-99.0); PO2(98.6) 86 mmHg (60-100); SAMPLE BLOOD; SAO2 100.7 % (95.0-100.0); THB 10.9 g/dL (11.5-17.4)
[2018-11-05 10:12] LABS: MODALITY VENTIMASK; PCO2(98.6) 61 mmHg (35-45)
--- NOTE | 2018-11-05 10:52 | CARDIOLOGY PROGRESS NOTE ---
DATE: 11/05/2018 The patient was seen in consultation by Dr. Hauser REASON FOR REVISIT: He complained of chest pain and dyspnea this morning. SUBJECTIVE: The patient is generally feeling poorly. He is dyspneic. He is on a high flow oxygen mask. He has expressed to the nurses that he was having discomfort in the anterior chest and the left anterior chest also. A chest x-ray done this morning shows bilateral infiltrate most prominent on the left, mildly increased on the right. EKG has been done at the bedside, and it shows PVCs. Subsequent EKG done after nitroglycerin and morphine shows sinus rhythm without any ischemic changes. Review of the CT scan of the chest shows extensive lymphangitic spread of cancer in the left upper lobe and metastatic nodules as described by radiologist, Dr. Luu, on 11/02/2018. OBJECTIVE: Vital signs: Blood pressure is 133/69, temperature 97.4, pulse 70, respirations 18. The patient is awake, in some distress. Diffusely diminished breath sounds bilaterally. Heart sounds are distant, regular. No gallop or murmur noted. Abdomen is nontender. Extremities showed trace edema. Neurologic: Follows commands. Moves all 4 extremities. DIAGNOSTIC DATA: Blood work shows sodium 139, potassium 4.4, BUN is 22, creatinine 0.8. White cell count is 17,150. His echocardiogram done on 10/31/2018 shows normal left ventricular function, ejection fraction 55%, a small anterior pericardial effusion. IMPRESSION: 1. The patient complains of chest discomfort. This is really noncardiac. This patient has advanced metastatic cancer with lymphangitic spread in the left lung. 2. The patient reportedly with a history of mild coronary atherosclerosis. 3. The patient has severe chronic obstructive pulmonary disease, on home oxygen. 4. Hypertension. 5. He has a small pericardial effusion. This could be malignant. RECOMMENDATIONS: Given the severity of this patient's premorbid condition with an essentially incurable and advanced cancer, the proper management should include Hospice care. At this time, I do not find evidence of myocardial ischemia to explain this patient's chest pain. The patient should be offered comfort measures to control pain. He is undoubtedly heading into a demise from the advanced neoplastic process. cc: Guzman Connelly MD
--- NOTE | 2018-11-05 13:33 | PROGRESS NOTE ---
DATE: 11/05/2018 SUBJECTIVE: The patient is resting at this time. Earlier this morning, the patient was complaining of 10/10 chest pain. He was given 2 sublingual nitroglycerin 5 minutes apart as well as 2 mg of IV morphine. After initiation of these medications, the patient's chest pain improved. His EKG revealed normal sinus rhythm and his cardiac enzymes were negative. OBJECTIVE: Vital Signs: Temperature 97.4 degrees, blood pressure 133/69, heart rate 70, respirations 18, O2 saturation is 94% on a Venturi mask. General: This is a chronically ill- appearing, elderly male lying in bed in no acute distress. Heart: S1, S2 normal. Regular rate and rhythm. Lungs: Diminished breath sounds bilaterally. No crackles. No wheezing. Abdomen: Positive bowel sounds. Soft, nontender, nondistended. Extremities: Trace pedal edema. No cyanosis. No calf tenderness. Neurologic: The patient is very hard of hearing but is oriented to person and place. Labs: White blood cell count 17, hemoglobin 11, hematocrit 38, platelets 218,000. ABG: PH of 7.4, pCO2 61, PO2 86. Sodium 139, potassium 4.4, chloride 95, CO2 34, BUN 22, creatinine 0.8, glucose 150. ProBNP 680. Troponin 0.02. Chest x-ray shows bilateral infiltrates. ASSESSMENT AND PLAN: 1. Acute on chronic hypoxemic respiratory failure. The patient has severe lymphangitic spread of his lung cancer and some pulmonary edema as well. We will continue to monitor the patient for treatment. The patient has received chemotherapy this past week. Oncology and pulmonary are following. 2. Chest pain. The patient's electrocardiogram and cardiac enzymes were negative. We will treat the patient symptomatically as necessary. 3. Anterior pericardial effusion. Stable. No evidence of tamponade. 4. Chronic obstructive pulmonary disease. Continue with bronchodilator therapy and supplemental oxygen. 5. Lung adenocarcinoma with lymphangitic spread. The patient is status post chemotherapy on 11/03/2018. Further management as per Dr. Onofre. 6. Gastrointestinal prophylaxis. Continue on Protonix. 7. Deep vein thrombosis prophylaxis. Continue on Lovenox. cc: Stephanie Cortez MD
[2018-11-05] MEDS: MIRALAX PO SCH (14:01)
[2018-11-05] MEDS: ATIVAN IV PRN ×2 (14:38→20:30)
[2018-11-05] MEDS ORDERED: LASIX IV ONE (15:38)
--- NOTE | 2018-11-05 20:10 | PULMONOLOGY PROGRESS NOTE ---
DATE: 11/05/2018 SUBJECTIVE: Patient reports mild increase shortness of breath compared to yesterday. He did have episode of chest pain this morning requiring morphine and nitroglycerin. OBJECTIVE: The patient has been afebrile for the last 24 hours. He has required an increase in oxygen requirement and now on a Venturi mask. HEENT: Pupils are equal, reactive. Oropharynx is clear. Neck: Is supple. Chest: Reveals scattered crackles bilaterally. Cardiac: S1-S2. Abdomen: Soft without hepatosplenomegaly . Extremities: Reveal trace edema. LABORATORIES: White blood count is increased 17.15, hemoglobin 11.7, platelet count 212,000, sodium 139, potassium 4.4, chloride 95, bicarbonate 24, BUN 22, creatinine 0 8. Arterial blood gas on 50% Ventimask pH 7.40, pCO2 61, PO2 of 86. Chest x-ray reveals diffuse bilateral infiltrates slightly worse today on the right. IMPRESSION: 78-year-old with stage IV lung cancer, acute hypoxemic respiratory failure, lymphangitic spread of cancer, increased pulmonary infiltrates. The patient's shortness of breath was improving but he has had increased oxygen requirements and increased radiographic infiltrates today. RECOMMENDATION: 1. Additional dose of Lasix this afternoon. 2. Continue oxygen for hypoxemic respiratory failure. 3. Continue current antibiotic regimen. 4. Have a low threshold for a steroid trial. 5. Treatment of lung cancer per Dr. Onofre. 6. End of life discussion/resuscitation has been discussed. The patient will be allowed to have a natural if he has a cardiopulmonary event. cc: Luca Vanessa MD
[2018-11-05] MEDS: XANAX PO PRN (23:02)
[2018-11-06] MEDS: MIRALAX PO SCH ×3 (00:42→21:56)
[2018-11-06] MEDS: DILAUDID IV PRN ×7 (00:45→21:57)
[2018-11-06] MEDS: DUONEB (A & A) INH SCH ×4 (03:28→23:00)
[2018-11-06] MEDS: MAXIPIME 1 GM in NS 50 ML IV SCH ×2 (06:23→17:10)
--- NOTE | 2018-11-06 07:46 | EKG Report ---
Test Performed on : 11/05/2018 09:36:27 AM Test Reason : chest pain Blood Pressure : / mmHG Vent. Rate : 075 BPM Atrial Rate : 075 BPM P-R Int : 184 ms QRS Dur : 106 ms QT Int : 398 ms P-R-T Axes : 092 054 056 degrees QTc Int : 444 ms Normal sinus rhythm. Normal ECG When compared with ECG of 05-NOV-2018 09:14, (Unconfirmed) premature ventricular complexes. are no longer present Confirmed by Hang DARDEN, Octavio Haynes ([id number]) on 11/06/2018 5:29:39 PM
--- NOTE | 2018-11-06 07:46 | EKG Report ---
Test Performed on : 11/05/2018 09:14:08 AM Test Reason : chest pain Blood Pressure : / mmHG Vent. Rate : 078 BPM Atrial Rate : 078 BPM P-R Int : 186 ms QRS Dur : 094 ms QT Int : 370 ms P-R-T Axes : 074 052 042 degrees QTc Int : 421 ms Sinus rhythm. with frequent and consecutive premature ventricular complexes. Abnormal ECG When compared with ECG of 29-OCT-2018 05:59, premature ventricular complexes. are now present Sinus rhythm. is no longer with 2nd degree AV block (Mobitz I). Nonspecific T wave abnormality no longer evident in Anterolateral leads Confirmed by Hang DARDEN, Octavio Haynes ([id number]) on 11/06/2018 5:29:23 PM
--- NOTE | 2018-11-06 10:44 | Diag Imaging Result Doc PS360 ---
EXAM: CHEST-PORTABLE HISTORY: abnormal exam TECHNIQUE: Chest single view COMPARISON: 11/05/2018 FINDINGS: There are dense bilateral infiltrates. The heart remains mildly prominent. No pleural effusions identified. IMPRESSION: No interval improvement. Electronically signed by Cristian Arriaga 11/06/2018 10:42 AM
[2018-11-06] MEDS: FLOMAX PO SCH (11:38)
--- NOTE | 2018-11-06 13:25 | PROGRESS NOTE ---
DATE: 11/06/2018 SUBJECTIVE: The patient is currently sitting in a chair. His family is present at the bedside. The patient was very confused and agitated overnight. He remains on a nonrebreather to maintain adequate oxygen saturation. OBJECTIVE: Vital Signs: Temperature 98, blood pressure 124/72, heart rate 97, respirations 22, O2 saturation 92% on a Venturi mask. General: This is a chronically ill-appearing, elderly male, resting comfortably in no acute distress. Head: Normocephalic, atraumatic. Heart: S1, S2 normal. Regular rate and rhythm. Lungs: Diminished breath sounds bilaterally. No wheezing. Abdomen: Positive bowel sounds. Soft, nontender, nondistended. Extremities: No edema. No cyanosis. Neurologic: The patient is lethargic. URINE OUTPUT: 1 L. LABORATORIES: None. ASSESSMENT AND PLAN: 1. Acute on chronic hypoxemic respiratory failure. Multifactorial. The patient has lymphangitic spread of his lung cancer and pulmonary edema. We will continue with the current treatment regimen. The patient received chemotherapy on November 03. Oncology and Pulmonary are following. 2. Lung adenocarcinoma, status post chemotherapy. Management as per Dr. Onofre. 3. Anterior pericardial effusion. Stable. 4. Chronic obstructive pulmonary disease. Continue with bronchodilator therapy and supplemental oxygen. 5. Pulmonary edema. Improved. 6. Gastrointestinal prophylaxis. Continue on Protonix. 7. Deep vein thrombosis prophylaxis. Continue on Lovenox. cc: Stephanie Cortez MD
[2018-11-06] MEDS: LASIX IV SCH ×2 (14:48→21:52)
[2018-11-06] MEDS: LEVAQUIN 500 MG/D5W 500 MG/100 ML IVPB IV SCH (14:48)
[2018-11-06] MEDS: LOVENOX SUBQ SCH (14:48)
[2018-11-06] MEDS: XANAX PO PRN ×2 (21:54→21:58)
[2018-11-07] MEDS: PHENERGAN IV PRN (00:32)
[2018-11-07] MEDS: DILAUDID IV PRN ×6 (00:32→22:44)
[2018-11-07] MEDS: MAXIPIME 1 GM in NS 50 ML IV SCH ×2 (03:10→15:21)
[2018-11-07] MEDS ORDERED: HALDOL IM ONE (04:06)
[2018-11-07] MEDS: DUONEB (A & A) INH SCH ×4 (04:08→21:50)
[2018-11-07 07:24] LABS: HEMATOCRIT 41.4 % (42.0-52.0); MCH 28.6 PG (27-31); MCHC 31.4 g/dL (33-37); MCV 91.2 FL (81-99); MPV 12.4 FL (7.4-10.4); RBC 4.54 XMIL (4.7-6.1); RDW 15.3 % (11.5-14.5); WBC 12.88 X1000 (4.8-10.8)
[2018-11-07 07:33] LABS: AGAP 15; BUN 35 mg/dL (8-22); CALCIUM 9.9 mg/dL (8.8-10.2); CHLORIDE 91 mmol/L (98-107); COSMO 286; CREATININE 0.8 mg/dL (0.7-1.2); ESTIMATED GFR > 60; GLUCOSE 168 mg/dL (70-104); POTASSIUM 4.1 mmol/L (3.5-5.1); SODIUM 137 mmol/L (136-145); TCO2 31 mmol/L (25-35)
[2018-11-07] MEDS ORDERED: DILAUDID IV ONE (07:44)
[2018-11-07 08:28] LABS: ALLEN TEST YES; BE 10.4 mmoll (-3.0-3.0); BLOOD TYPE ARTERIAL; METHB 1.1 % (0.0-1.5); MODALITY VENTIMASK; O2HB 94.2 % (95.0-99.0); PO2(98.6) 86 mmHg (60-100); SAMPLE BLOOD; THB 12.8 g/dL (11.5-17.4); pH(98.6) 7.42 (7.35-7.45)
[2018-11-07 08:29] LABS: PCO2(98.6) 57 mmHg (35-45)
--- NOTE | 2018-11-07 08:30 | HEMO/ONC PROGRESS NOTE ---
DATE: 11/07/2018 SUBJECTIVE: The patient said he did not have a good night overall last night. said that he has been more confused and not able to keep his oxygen on and pulling out IV's. Complaining of increasing amounts of pain to his back and right side. OBJECTIVE: Vital Signs: Temperature 98.3 degrees, heart rate 111, respiratory rate 26, blood pressure 104/54, satting 96% on Venturi mask. General: Patient is awake, sitting up in bed, no acute distress noted. HEENT: Anicteric. Pupils PERRLA. Mucous membranes appear to be moist. Cardiovascular: S1, S2 regular. Increased rate and rhythm. Lungs: Diminished breath sounds bilaterally. Abdomen: Soft, nontender. Bowel sounds present in all 4 quadrants. Neurological: Alert and oriented x2. No focal deficits noted. LABORATORY DATA: White blood cell count 12.88, hemoglobin 13.0, hematocrit 41.4 , platelets are 219. Potassium 4.1, BUN 35, creatinine 0.8. ASSESSMENT AND PLAN: 1. Metastatic lung adenocarcinoma colon: Patient status post chemotherapy at this time, the first cycle of chemotherapy. The patient tolerated chemotherapy very well. We will continue to monitor at this time. 2. Acute on chronic hypoxic respiratory failure: Continue recommendations by Pulmonology and primary medical team. 3. Patient complaining of increasing amounts of back pain: Pain medications ordered. We will continue to monitor closely until pain gets any better. Patient re-educated on importance of asking for pain medication if he is hurting. The patient and family both verbalized understanding. 4. Deep venous thrombosis prophylaxis: Continue Lovenox as ordered. Dictated by SUNSHINE Castellano for Laureano Onofre MD Patient seen and examined. Nurse reports that he is a little more comfortable at this time. We have increased his Dilaudid to 1 mg every 4 hours when necessary. He apparently received benzodiazepines and Haldol overnight and he was rather drowsy this morning. For now try to hold off on medicines that cause drowsiness. At baseline he was taking Dilaudid 2 mg by mouth 2 tablets 3 times a day at home. We will at least given Dilaudid 1 mg every 4 hours when necessary for pain management and to prevent any withdrawals. Daughter wants to continue to push to for another 2 weeks with supportive care to see if he will improve with chemotherapy. She understands that if his condition worsens we will proceed with comfort measures. cc: SUNSHINE Castellano MD [facility]
[2018-11-07] MEDS: LOVENOX SUBQ SCH (10:55)
[2018-11-07] MEDS: LASIX IV SCH ×3 (10:55→20:17)
[2018-11-07] MEDS: FLOMAX PO SCH ×2 (10:55→11:16)
[2018-11-07] MEDS: MIRALAX PO SCH ×3 (10:56→22:24)
--- NOTE | 2018-11-07 12:36 | PROGRESS NOTE ---
DATE: 11/07/2018 SUBJECTIVE: The patient is awake. Has family present in the room, and he is somewhat confused. OBJECTIVE: Vital signs: Temperature is 97.6 degrees, pulse is 78, respiratory rate is 20, blood pressure 122/81, oxygen saturation is 96%. HEENT: The patient is atraumatic, normocephalic. Cardiovascular: S1, S2 irregular. Respiratory: No rales or rhonchi noted. Abdomen: Soft, nontender. No masses felt. Extremities: No evidence of any edema. Central nervous system: No obvious focal deficit noted. LABS: WBC is 12.88, hematocrit 41.4 with a platelet count of 219. AB.42/47/86/98%. Sodium 137, potassium 4.1, chloride of 1, bicarb 31, BUN is 35, creatinine 0.8. X-ray chest shows evidence of dense bilateral infiltrates. ASSESSMENT AND PLAN: 1. Acute respiratory failure. Most recent chest x-ray shows evidence of dense bilateral infiltrates. Maintain the patient on antibiotics, nebulized bronchodilators, as well as oxygen. Pulmonary team is following. 2. 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 Oncology following. 3. Chronic obstructive pulmonary disease. Continue nebulized bronchodilators as well as supplemental oxygen. 4. Pulmonary edema. The patient is currently on diuretics. 5. Deep vein thrombosis prophylaxis on Lovenox. 6. Gastrointestinal prophylaxis on proton-pump inhibitor. cc: Mika Horta MD
[2018-11-07] MEDS: LEVAQUIN 500 MG/D5W 500 MG/100 ML IVPB IV SCH (12:58)
[2018-11-08] MEDS: DILAUDID IV PRN ×4 (02:46→20:37)
[2018-11-08] MEDS: MAXIPIME 1 GM in NS 50 ML IV SCH ×2 (02:46→15:30)
[2018-11-08] MEDS: DUONEB (A & A) INH SCH ×4 (03:55→21:10)
[2018-11-08 05:04] LABS: BLOOD TYPE ARTERIAL; SAMPLE BLOOD
[2018-11-08 05:05] LABS: ALLEN TEST YES; BE 11.6 mmoll (-3.0-3.0); HCO3-(ACT) 33.9 mmoll (20.0-26.0); METHB 1.2 % (0.0-1.5); O2(CT) 16.9 mL/dL (15.0-23.0); PO2(98.6) 97 mmHg (60-100); SAO2 98.7 % (95.0-100.0); THB 12.6 g/dL (11.5-17.4); pH(98.6) 7.47 (7.35-7.45)
[2018-11-08 05:10] LABS: MODALITY VENTIMASK
[2018-11-08 05:12] LABS: PCO2(98.6) 51 mmHg (35-45)
[2018-11-08 06:26] LABS: BASO# 0.01 X1000 (0.0-0.2); BASO% 0.1 % (0.0-0.8); EOS# 0.14 X1000 (0.0-0.7); EOS% 1.7 % (0.0-10.0); HEMATOCRIT 36.4 % (42.0-52.0); HEMOGLOBIN 11.3 g/dL (14.0-18.0); IMM GRAN# 0.02 X1000 (0.0-0.04); IMM GRAN% 0.2 % (0.0-0.5); LYMPH# 0.99 X1000 (1.2-3.4); LYMPH% 12.1 % (20.5-51.1); MCH 28.3 PG (27-31); MCV 91.2 FL (81-99); MONO# 0.16 X1000 (0.11-0.59); MPV 11.6 FL (7.4-10.4); NEUT# 6.85 X1000 (1.4-6.5); NEUT% 83.9 % (42.2-75.2); PLT 198 X1000 (130-400); RBC 3.99 XMIL (4.7-6.1); WBC 8.17 X1000 (4.8-10.8)
[2018-11-08 06:59] LABS: AGAP 11; ALB/GLOB RATIO 0.8; ALBUMIN 2.9 g/dL (3.5-5.0); ALKALINE PHOSPHATASE 91 U/L (32-122); BUN 35 mg/dL (8-22); CALCIUM 9.5 mg/dL (8.8-10.2); CHLORIDE 86 mmol/L (98-107); COSMO 273; CREATININE 0.8 mg/dL (0.7-1.2); ESTIMATED GFR > 60; GLUCOSE 140 mg/dL (70-104); GOT 34 U/L (10-34); GPT 23 U/L (10-44); POTASSIUM 3.4 mmol/L (3.5-5.1); SODIUM 131 mmol/L (136-145); TCO2 34 mmol/L (25-35); TOTAL BILIRUBIN 1.05 mg/dL (0.20-1.00); TOTAL PROTEIN 6.5 g/dL (6.3-8.3)
--- NOTE | 2018-11-08 08:02 | HEMO/ONC PROGRESS NOTE ---
DATE: 11/08/2018 SUBJECTIVE: Family says that the patient is still slightly confused. May be somewhat a little bit better today though. OBJECTIVE: Vital Signs: Temperature 98.5 degrees, heart rate 87, respiratory rate 20, blood pressure 122/56. Saturating 98% on Venturi mask. General: Patient is awake, sitting up in bed, in no acute distress noted. HEENT: Anicteric. Pupils PERRLA. Mucous membranes appear dry. Cardiovascular: S1, S2. Regular rate and rhythm. Chest: Bilateral breath sounds diminished bilaterally. Abdomen: Soft, nontender. Bowel sounds present in all 4 quadrants. Neurologic: Alert and oriented x3. No focal deficits noted. LABORATORY DATA: White blood cell count 8.17, hemoglobin 8.3, hematocrit 36.4, platelets are 198. Potassium 3.4, BUN 35, creatinine 0.8. ASSESSMENT AND PLAN: 1. Metastatic lung adenocarcinoma: The patient is status post first cycle of chemotherapy. The patient has tolerated his first round of chemotherapy very well. Continue to monitor very closely. 2. Acute on chronic hypoxic respiratory failure: Continue recommendation of Pulmonology and primary medical team. 3. Pain management: The patient's pain is controlled well. Continue with current orders. 4. Deep venous thrombosis prophylaxis. Continue Lovenox as ordered. Dictated by SUNSHINE Castellano for Laureano Onofre MD cc: SUNSHINE Castellano MD
[2018-11-08] MEDS: MIRALAX PO SCH ×2 (08:47→21:53)
[2018-11-08] MEDS: LASIX IV SCH ×2 (08:47→21:53)
[2018-11-08] MEDS: LOVENOX SUBQ SCH (08:48)
[2018-11-08] MEDS: FLOMAX PO SCH (08:48)
--- NOTE | 2018-11-08 09:11 | Diag Imaging Result Doc PS360 ---
EXAM: CHEST-1 VIEW 11/08/2018 HISTORY: lung ca TECHNIQUE: AP portable at 0537 COMMENT: There is diffuse interstitial and alveolar opacity bilaterally. This has improved slightly with respect to the left upper lobe but is somewhat worse in the right lower lobe. IMPRESSION: Waxing and waning pulmonary edema and/or pneumonia. Electronically signed by Prasanna Luu 11/08/2018 9:09 AM
[2018-11-08] MEDS: XANAX PO PRN (10:58)
[2018-11-08] MEDS ORDERED: KLOR-CON PO ONE ×2 (13:02→17:30)
--- NOTE | 2018-11-08 13:31 | PROGRESS NOTE ---
DATE: 11/08/2018 SUBJECTIVE: The patient is awake. He sensorium seems to be much clearer today. OBJECTIVE: Vital signs: Vital signs are as follows: Temperature 98.4 degrees, pulse 82, respirations 18, blood pressure 114/68, oxygen saturation 94% per minute. HEENT: He is atraumatic, normocephalic. Cardiovascular system: S1, S2. Respiratory system: Has evidence of good air entry bilaterally. Abdomen: Soft, nontender. No masses felt. Extremities: No evidence of edema. Central nervous system: No obvious focal deficit noted. LABORATORY/X-RAY DATA: Labs are as follows: X-ray of the chest shows a waxing and waning pulmonary edema and/or pneumonia. His laboratory data reveals WBC is 8.17, hematocrit is 36.4 with a platelet count of 190. Arterial blood gas: ABG 7.47/51/97/98.7. Sodium is 131, potassium 3.4, chloride is 86, bicarbonate is 34. BUN is 5 and creatinine 0.8. ASSESSMENT AND PLAN: 1. Acute respiratory failure. Today's chest x-ray shows evidence of pulmonary edema and/or pneumonia. The patient will need to be maintained on both diuretics, as well as antibiotics. Continue oxygen supplementation. Maintain patient on nebulized bronchodilators. The patient is being followed up by the pulmonary team. 2. Adenocarcinoma of the lungs, status post chemotherapy. Oncology is following. 3. Chronic obstructive pulmonary disease. Continue nebulized bronchodilators, as well as oxygen supplementation. 4. Pulmonary edema. Treatment as noted in #1. 5. Hypokalemia. Replace potassium. Check magnesium level. 6. Deep vein thrombosis prophylaxis. The patient is on Lovenox. 7. Gastrointestinal prophylaxis. proton pump inhibitor. cc: Mika Horta MD
[2018-11-08] MEDS: LEVAQUIN 500 MG/D5W 500 MG/100 ML IVPB IV SCH (14:58)
[2018-11-09] MEDS: DILAUDID IV PRN ×2 (00:25→04:36)
[2018-11-09] MEDS: DUONEB (A & A) INH SCH ×4 (03:23→21:36)
[2018-11-09] MEDS: MAXIPIME 1 GM in NS 50 ML IV SCH ×2 (04:36→18:43)
[2018-11-09] MEDS: XANAX PO PRN (05:23)
[2018-11-09 06:57] LABS: BASO# 0.02 X1000 (0.0-0.2); BASO% 0.3 % (0.0-0.8); EOS# 0.16 X1000 (0.0-0.7); EOS% 2.3 % (0.0-10.0); HEMATOCRIT 40.6 % (42.0-52.0); HEMOGLOBIN 12.6 g/dL (14.0-18.0); LYMPH# 0.93 X1000 (1.2-3.4); LYMPH% 13.6 % (20.5-51.1); MCH 28.6 PG (27-31); MCV 92.3 FL (81-99); MONO# 0.11 X1000 (0.11-0.59); MONO% 1.6 % (1.7-9.3); NEUT# 5.63 X1000 (1.4-6.5); NEUT% 82.2 % (42.2-75.2); PLT 169 X1000 (130-400); RDW 15.2 % (11.5-14.5); WBC 6.85 X1000 (4.8-10.8)
[2018-11-09 07:33] LABS: AGAP 11; ALB/GLOB RATIO 0.8; ALBUMIN 3.1 g/dL (3.5-5.0); ALKALINE PHOSPHATASE 95 U/L (32-122); BUN 31 mg/dL (8-22); CALCIUM 9.7 mg/dL (8.8-10.2); CHLORIDE 93 mmol/L (98-107); COSMO 281; CREATININE 0.8 mg/dL (0.7-1.2); ESTIMATED GFR > 60; GLUCOSE 118 mg/dL (70-104); GOT 37 U/L (10-34); GPT 25 U/L (10-44); MAGNESIUM 2.3 mg/dL (1.5-2.7); POTASSIUM 3.9 mmol/L (3.5-5.1); SODIUM 137 mmol/L (136-145); TCO2 33 mmol/L (25-35); TOTAL BILIRUBIN 1.24 mg/dL (0.20-1.00)
--- NOTE | 2018-11-09 08:13 | Diag Imaging Result Doc PS360 ---
EXAM: CHEST-1 VIEW - 11/09/2018 HISTORY: Lung ca TECHNIQUE: Portable chest COMPARISON: 11/08/2018 FINDINGS: There is mild thyromegaly. There are relatively diffuse bilateral alveolar and interstitial opacities similar to prior. There is no substantial pleural effusion or pneumothorax identified. IMPRESSION: Pulmonary edema and/or bilateral pneumonia similar to prior. Electronically signed by David Wade 11/09/2018 8:10 AM
[2018-11-09] MEDS: MIRALAX PO SCH ×2 (09:00→21:34)
[2018-11-09] MEDS: FLOMAX PO SCH (09:04)
[2018-11-09] MEDS: LOVENOX SUBQ SCH (09:04)
[2018-11-09] MEDS: LASIX IV SCH ×2 (09:04→21:34)
[2018-11-09] MEDS: DILAUDID PO SCH ×3 (09:04→20:07)
--- NOTE | 2018-11-09 09:21 | HEMO/ONC PROGRESS NOTE ---
DATE: 11/09/2018 SUBJECTIVE: The patient says he feels slightly better today. Pain continues to improve. OBJECTIVE: Vital Signs: Temperature 97.6 degrees, heart rate 90, respiratory rate 16, blood pressure 115/67, saturating 92% on nasal cannula. General: The patient is awake, lying in bed, in no acute distress noted. HEENT: Anicteric. Pupils PERRLA. Mucous membranes moist. Cardiovascular: S1 and S2. Regular rate and rhythm. Chest: Bilateral breath sounds, diminished bilaterally. Abdomen: Soft, nontender. Bowel sounds present in all 4 quadrants. Neurologic: Alert and oriented x3. No focal deficits noted. LABORATORY DATA: White blood cell count 6.85, hemoglobin 10.6, hematocrit 40.6 , platelets are 169. Potassium 3.9, BUN 31, creatinine 0.8. ASSESSMENT AND PLAN: 1. Metastatic lung adenocarcinoma: The patient is status post first round of chemotherapy. Continue to monitor closely at this time. 2. Acute on chronic hypoxic respiratory failure: Continue recommendations per pulmonology and primary medical team. 3. Deep venous thrombosis prophylaxis: Continue Lovenox as ordered. Continue to have the patient get out of bed as much as possible. 4. Supportive care: Continue protein shakes 4 times daily. Continue to have the patient get out of bed as much as possible. Dictated by SUNSHINE Castellano for Laureano Onofre MD Patient seen and examined. As above. Patients confusion and shortness of breath continues to feel better. Continue current management. I will start discuss with family regarding disposition soon. Laureano Onofre M.D. cc: SUNSHINE Castellano MD [facility]
[2018-11-09] MEDS: LEVAQUIN 500 MG/D5W 500 MG/100 ML IVPB IV SCH (13:45)
--- NOTE | 2018-11-09 15:46 | PROGRESS NOTE ---
DATE: 11/09/2018 INTERVAL HISTORY: The patient is complaining primarily of insomnia. Oxygen requirement slightly improved. Dyspnea on exertion, stable but comfortable at rest. No other new complaints. No other acute events overnight. REVIEW OF SYSTEMS: A 12 point review of systems negative except as per Interval History. DIAGNOSTIC DATA: WBC 6.8, hemoglobin 12.6, hematocrit 40.6, platelets 169,000. Sodium 137, potassium 3.9, BUN 31, creatinine 0.8, glucose 118, bilirubin 1.24, AST 37.5, ALT 25, alkaline phosphatase 95. PHYSICAL EXAMINATION: Vitals: T-max 98.6, pulse 90, respirations 18, blood pressure 123/60, O2 saturation 98% on 6 L by nasal cannula. General: No acute distress. HEENT: Normocephalic, atraumatic. Moist mucous membranes. Neck: No cervical adenopathy. Cardiovascular: Regular rate and rhythm. No murmurs noted. Pulmonary: Reasonable air entry. No wheezing or rales. Abdomen: Soft, nontender, nondistended. Bowel sounds positive. Peripheral pulses intact. No clubbing, cyanosis, or edema. Neurologic: Cranial nerves grossly intact. No focal deficits identified. Psychiatric: Normal mood and affect. Awake, alert, and oriented x3. Skin: No new rashes or lesions identified. ASSESSMENT AND PLAN: 1. Acute on chronic hypoxic and hypercapnic respiratory failure. Last ABG yesterday showing improved hypercapnia that is likely at or near baseline. Still requiring a fair amount of oxygen. Was not on oxygen at home, but suspect he will have to be discharged on oxygen. Multifactorial is cancer of both lungs, some pulmonary edema which may be cancer related, and possibly pneumonia. Continued on antibiotics and diuretic with some improvement. We will continue for now, but may be approaching as good as he is going to get in the near future. 2. Stage IV adenocarcinoma of the lungs. Will likely need port prior to discharge. Medically stable at this point to proceed with port at Oncology's and Surgery's discretion. Has received first dose of chemotherapy. Prognosis likely guarded. Oncology following. 3. Chronic obstructive pulmonary disease. No signs of exacerbation at this point but did have some significant hypercapnia previously. No wheezing and fair air entry now. Continue nebulizers as needed. 4. Possible pulmonary edema. BNP only mildly elevated. Echocardiogram with normal ejection fraction (EF). No clear sign of pulmonary hypertension or diastolic heart failure. Edema may be related to lymphangitic spread of cancer. We will continue diuretics for now. 5. Hypokalemia, improved status post repletion. Monitor. 6. Hyponatremia, improved. Continue to monitor. 7. Insomnia. We will give some low-dose trazodone. 8. Hyperglycemia. A1c pending. We will monitor. No previous diagnosis of diabetes. 9. BPH. Continue home tamsulosin. 10. Deep vein thrombosis prophylaxis. Lovenox.
[2018-11-10] MEDS: XANAX PO PRN ×2 (00:39→22:08)
[2018-11-10] MEDS: DESYREL PO PRN ×2 (00:42→22:08)
[2018-11-10] MEDS: DUONEB (A & A) INH SCH ×4 (03:22→21:30)
[2018-11-10] MEDS: DILAUDID PO SCH (03:47)
[2018-11-10] MEDS: MAXIPIME 1 GM in NS 50 ML IV SCH ×2 (03:48→15:34)
--- NOTE | 2018-11-10 09:32 | HEMO/ONC PROGRESS NOTE ---
DATE: 11/10/2018 SUBJECTIVE: The patient's shortness of breath continues to improve. The patient continues to feel better. Patient asked about going home soon. OBJECTIVE: Vital Signs: Temperature 98.0 degrees, heart rate 93, respiratory rate 17, blood pressure 125/78, satting 93% on nasal cannula. General: Patient is awake, lying in bed, no acute distress noted. HEENT: Anicteric pupils. PERRLA. Mucous membranes appear to be moist. Cardiovascular system: S1, S2. Regular rate and rhythm. Chest: Bilateral breath sounds, diminished bilaterally. Abdomen: Soft, nontender. Bowel sounds present all 4 quadrants. Neurologic: Alert and oriented x3. No focal deficits noted. LABORATORY DATA: Labs are from yesterday. Labs pending. ASSESSMENT AND PLAN: 1. Metastatic lung adenocarcinoma: The patient is status post first round of chemotherapy. The patient continues to slowly improve. We will continue to monitor closely. Once patient is discharged, we will look at getting his second cycle of chemotherapy started in clinic. 2. Acute on chronic respiratory failure: Shortness of breath continues to improve. Continue recommendation for monitoring by primary medical team. 3. Deep venous thrombosis prophylaxis: Continue Lovenox as ordered. Continue to get patient out of bed as much possible. 4. Supportive care: Continue to have patient get up out of bed as much as possible. Continue protein shakes 4 times a day. The patient will continue to do exercises as instructed. Dictated by SUNSHINE Castellano for Laureano Onofre MD Patient seen and examined. Minimal confusion last night. Pain is very well- controlled. Shortness of breath is much better compared to 3 days ago. I discussed disposition. Patient and family agreeable. Discussed with hospitalist. Proceed with discharge with home health care. I will plan to see him back in the clinic early next week. Laureano Onofre M.D. Laureano Onofre M.D. cc: SUNSHINE Castellano MD [facility]
[2018-11-10] MEDS: MIRALAX PO SCH ×2 (10:07→22:05)
[2018-11-10] MEDS: FLOMAX PO SCH (10:08)
[2018-11-10] MEDS: LOVENOX SUBQ SCH (10:08)
[2018-11-10] MEDS: LASIX IV SCH ×2 (10:08→22:05)
[2018-11-10] MEDS: DILAUDID PO PRN ×2 (10:20→18:34)
[2018-11-10] MEDS: LEVAQUIN 500 MG/D5W 500 MG/100 ML IVPB IV SCH (13:45)
[2018-11-11] MEDS: DUONEB (A & A) INH SCH ×4 (04:00→21:58)
[2018-11-11] MEDS: MAXIPIME 1 GM in NS 50 ML IV SCH ×2 (05:32→17:17)
[2018-11-11] MEDS: DILAUDID PO PRN ×4 (05:40→23:55)
[2018-11-11] MEDS: MIRALAX PO SCH ×2 (09:50→22:20)
[2018-11-11] MEDS: FLOMAX PO SCH (09:52)
[2018-11-11] MEDS: LASIX IV SCH ×2 (09:52→22:20)
[2018-11-11] MEDS: LOVENOX SUBQ SCH (09:52)
[2018-11-11] MEDS: LEVAQUIN 500 MG/D5W 500 MG/100 ML IVPB IV SCH (12:20)
--- NOTE | 2018-11-11 15:20 | PROGRESS NOTE ---
DATE: 11/11/2018 INTERVAL HISTORY: The patient's respiratory status continues to improve slowly. No new complaints. No other acute events overnight. REVIEW OF SYSTEMS: A 12-point review of systems is negative except as per interval history. DIAGNOSTIC DATA: WBC is 6.8, hemoglobin 12.6, hematocrit 40.6, platelets 169. Sodium is 137, potassium 3.9, BUN is 31, creatinine 0.8, glucose 118. OBJECTIVE: Vital signs: T-max is 98.5, pulse 78, respirations 18, blood pressure 122/68, O2 saturation is 96% on 4 L by nasal cannula. General: No acute distress. Vitals as above. HEENT: Normocephalic and atraumatic. Moist mucous membranes. No cervical adenopathy. Cardiovascular: Regular rate and rhythm. No murmurs noted. Pulmonary: Reasonable air entry. No wheezing. Minimal right base rales. Otherwise clear. Abdomen: Soft, nontender and nondistended. Bowel sounds positive. Extremities: Peripheral pulses intact. No cyanosis, clubbing or edema. Neurologic: Cranial nerves grossly intact. No focal deficits identified. Psychiatric: Normal mood and affect. Awake, alert and oriented x3. Skin: No new rashes or lesions identified. ASSESSMENT AND PLAN: 1. Acute on chronic hypoxic and hypercapnic respiratory failure. Last ABG with hypercapnia, improved and likely at or near baseline. Oxygen requirements are improving slowly. We will continue to wean as able but suspect that he will end up having to go home on at least some oxygen. Continue antibiotics and diuretics for now. 2. Stage IV adenocarcinoma of the lungs. May be getting port on Tuesday. He is status post first round of chemotherapy. Oncology is following and planning for outpatient followup when discharged. 3. Chronic obstructive pulmonary disease. No signs of exacerbation at this time but likely responsible for his likely chronic hypercapnia. Continue to monitor. 4. Hypokalemia, improved on last check. Continue to monitor. 5. Hyponatremia, improved on last check. Recheck pending. 6. Insomnia. Improved with trazodone. 7. Hyperglycemia. A1c still pending. We will monitor glucoses. 8. Benign prostatic hypertrophy. Continue home tamsulosin. 9. DVT prophylaxis with Lovenox.
[2018-11-12] MEDS: DUONEB (A & A) INH SCH ×4 (04:03→23:00)
[2018-11-12] MEDS: MAXIPIME 1 GM in NS 50 ML IV SCH ×2 (05:49→17:08)
[2018-11-12 07:22] LABS: BASO# 0.01 X1000 (0.0-0.2); BASO% 0.3 % (0.0-0.8); EOS# 0.09 X1000 (0.0-0.7); EOS% 2.4 % (0.0-10.0); IMM GRAN# 0.02 X1000 (0.0-0.04); IMM GRAN% 0.5 % (0.0-0.5); LYMPH% 26.5 % (20.5-51.1); MCH 28.3 PG (27-31); MCHC 31.4 g/dL (33-37); MONO# 0.44 X1000 (0.11-0.59); MONO% 11.6 % (1.7-9.3); MPV 11.6 FL (7.4-10.4); NEUT# 2.22 X1000 (1.4-6.5); NEUT% 58.7 % (42.2-75.2); PLT 138 X1000 (130-400); RBC 3.89 XMIL (4.7-6.1); RDW 14.7 % (11.5-14.5); WBC 3.78 X1000 (4.8-10.8)
[2018-11-12 07:29] LABS: INR 1.01; PROTIME 14.2 Seconds (11.0-16.0)
--- NOTE | 2018-11-12 07:29 | Diag Imaging Result Doc PS360 ---
EXAM: CHEST-1 VIEW 11/12/2018 HISTORY: SOB TECHNIQUE: AP portable at 0601 COMMENT: There is interstitial and alveolar opacity throughout most of both lungs. There may be slight improvement since the previous study of 11/09/2018. There is some fluid in the minor fissure on the right which was not apparent previously. IMPRESSION: Pulmonary edema and/or ARDS slightly improved since 11/08/2018. Electronically signed by Prasanna Luu 11/12/2018 7:27 AM
[2018-11-12 07:53] LABS: AGAP 11; BUN 22 mg/dL (8-22); CALCIUM 9.2 mg/dL (8.8-10.2); CHLORIDE 93 mmol/L (98-107); COSMO 279; CREATININE 0.7 mg/dL (0.7-1.2); ESTIMATED GFR > 60; GLUCOSE 138 mg/dL (70-104); POTASSIUM 3.6 mmol/L (3.5-5.1); SODIUM 137 mmol/L (136-145); TCO2 33 mmol/L (25-35)
[2018-11-12] MEDS: MIRALAX PO SCH ×2 (09:50→21:46)
[2018-11-12] MEDS: DILAUDID PO PRN ×3 (09:51→21:46)
[2018-11-12] MEDS: FLOMAX PO SCH (09:51)
[2018-11-12] MEDS: LOVENOX SUBQ SCH (09:52)
[2018-11-12] MEDS: LASIX IV SCH ×2 (09:52→21:47)
[2018-11-12] MEDS: LEVAQUIN 500 MG/D5W 500 MG/100 ML IVPB IV SCH (11:30)
--- NOTE | 2018-11-12 13:42 | PROGRESS NOTE ---
DATE: 11/10/2018 This is for a progress note for 11/10/2018, as I could not find my progress note for that date, so this is a repeat progress noted 11/10/2018. SUBJECTIVE: The patient is awake. OBJECTIVE: Vital signs: Temperature 97.6 degrees, pulse 66, respirations 19, blood pressure is 108/65, oxygen saturation is 97%. DIAGNOSTIC STUDIES: Laboratory data from 11/09/2018: WBCs 6.85, hematocrit 40.6 with a platelet count of 169. Sodium is 137, potassium 3.9, chloride is [*], bicarbonate is 30, BUN is [*], creatinine 0.8. ASSESSMENT: 1. Acute respiratory failure. 2. Cough pulmonary edema. 3. Pneumonia. 4. Chronic obstructive pulmonary disease (COPD). 5. Adenocarcinoma of the lung. 6. Deep vein thrombosis prophylaxis. PLAN: Maintain patient on oxygen supplementation. Continue antibiotics, diuretics, and also bronchodilator treatment. The patient is being followed up by Pulmonology as well as Oncology teams. cc: Mika Horta MD
--- NOTE | 2018-11-12 13:48 | PROGRESS NOTE ---
DATE: 11/12/2018 SUBJECTIVE: Patient is awake. Not in any obvious distress. OBJECTIVE: Vital signs: Temperature 96.6 degrees, pulse 65, respiratory rate is 18, blood pressure is 110/66, oxygen saturation is [*]. HEENT: Atraumatic, normocephalic. Cardiovascular: S1, S2. Respiratory: Has evidence of good air entry bilaterally. Abdomen: Soft, nontender. No masses felt. Extremities: No significant edema noted. Central nervous system: No obvious focal deficit noted. LABS: WBC is 3.78, hematocrit is 35.0, with a platelet count of 138,000. Sodium is 137, potassium 3.6, chloride 93, bicarb is 23, BUN is 22, creatinine 0.7. X-ray of the chest shows evidence of pulmonary edema and/or ARDS, slightly improved since 11/08/2018. ASSESSMENT AND PLAN: 1. Respiratory failure. Today's x-ray shows evidence of pulmonary edema and/or ARDS which is slightly improved since 11/08/2018. Wound recommend oxygen supplementation and also continue diuretics as well as antibiotics. The patient is being followed by the Pulmonary team. 2. Chronic obstructive pulmonary disease. Continue nebulized bronchodilators as well as oxygen. 3. Adenocarcinoma of the lungs, status post chemotherapy. Oncology is following. 4. Deep vein thrombosis prophylaxis. Lovenox. 5. Gastrointestinal prophylaxis. PPI. cc: Mika Horta MD
[2018-11-13] MEDS: XANAX PO PRN (02:56)
[2018-11-13] MEDS: DUONEB (A & A) INH SCH ×2 (03:55→10:42)
[2018-11-13 05:03] LABS: ALLEN TEST YES; BE 12.7 mmoll (-3.0-3.0); BLOOD TYPE ARTERIAL; HCO3-(ACT) 34.8 mmoll (20.0-26.0); O2HB 95.6 % (95.0-99.0); PO2(98.6) 86 mmHg (60-100); SAMPLE BLOOD; SAO2 98.5 % (95.0-100.0); THB 11.8 g/dL (11.5-17.4); pH(98.6) 7.48 (7.35-7.45)
[2018-11-13 05:05] LABS: MODALITY CANNULA
[2018-11-13 05:06] LABS: PCO2(98.6) 51 mmHg (35-45)
[2018-11-13] MEDS: MAXIPIME 1 GM in NS 50 ML IV SCH (05:49)
--- NOTE | 2018-11-13 07:35 | Diag Imaging Result Doc PS360 ---
EXAM: CHEST-1 VIEW HISTORY: pulm edema TECHNIQUE: Chest single view COMPARISON: 11/12/2018 FINDINGS: The lungs are well expanded. There are increased interstitial markings bilaterally. These are slightly more pronounced in the right lung base than they were previously. No cardiomegaly. No pleural effusions identified. IMPRESSION: Mild interval worsening. Electronically signed by Cristian Arriaga 11/13/2018 7:33 AM
[2018-11-13 07:51] LABS: BASO# 0.03 X1000 (0.0-0.2); BASO% 0.9 % (0.0-0.8); EOS# 0.01 X1000 (0.0-0.7); EOS% 0.3 % (0.0-10.0); HEMATOCRIT 36.1 % (42.0-52.0); HEMOGLOBIN 11.3 g/dL (14.0-18.0); LYMPH# 0.82 X1000 (1.2-3.4); LYMPH% 25.4 % (20.5-51.1); MCH 28.7 PG (27-31); MCHC 31.3 g/dL (33-37); MCV 91.6 FL (81-99); MONO# 0.56 X1000 (0.11-0.59); MONO% 17.3 % (1.7-9.3); MPV 11.3 FL (7.4-10.4); NEUT# 1.81 X1000 (1.4-6.5); NEUT% 56.1 % (42.2-75.2); PLT 138 X1000 (130-400); RBC 3.94 XMIL (4.7-6.1); RDW 14.9 % (11.5-14.5); WBC 3.23 X1000 (4.8-10.8)
[2018-11-13 08:27] LABS: AGAP 11; ALBUMIN 3.3 g/dL (3.5-5.0); ALKALINE PHOSPHATASE 96 U/L (32-122); BUN 20 mg/dL (8-22); CALCIUM 9.2 mg/dL (8.8-10.2); CHLORIDE 95 mmol/L (98-107); COSMO 286; CREATININE 0.8 mg/dL (0.7-1.2); ESTIMATED GFR > 60; GLUCOSE 166 mg/dL (70-104); GOT 59 U/L (10-34); GPT 41 U/L (10-44); POTASSIUM 3.2 mmol/L (3.5-5.1); SODIUM 140 mmol/L (136-145); TCO2 34 mmol/L (25-35); TOTAL BILIRUBIN 0.67 mg/dL (0.20-1.00); TOTAL PROTEIN 6.5 g/dL (6.3-8.3)
--- NOTE | 2018-11-13 08:36 | HEMO/ONC PROGRESS NOTE ---
DATE: 11/13/2018 SUBJECTIVE: The patient says his breathing continues to be stable. No new complaints at this time. OBJECTIVE: Vital Signs: Temperature of 98.3 degrees, heart rate 52, respiratory rate 16, blood pressure 103/53, saturating 98% on nasal cannula. General: The patient is awake, lying in bed. No acute distress noted. HEENT: Anicteric. Pupils PERRLA. Mucous membranes appear to be moist. Cardiovascular: S1, S2. Regular rate and rhythm. Chest: Bilateral breath sounds diminished bilaterally. Abdomen: Soft, nontender. Bowel sounds present in all 4 quadrants. Neurologic: Alert and oriented x3. No focal deficits noted. Laboratory Data: White blood cell count is 3.23, hemoglobin 9.2, hematocrit 36.1, platelets are 138,000. Radiology Reports: Chest x-ray shows mild interval worsening. ASSESSMENT AND PLAN: 1. Metastatic lung adenocarcinoma: The patient is status post first round of chemotherapy. Once patient is discharged, we will continue treatment as an outpatient. Continue to monitor closely. 2. Acute on chronic respiratory failure: Shortness of breath continues to be stable. Continue recommendations per primary medical team and pulmonology. 3. Deep venous thrombosis prophylaxis: Continue Lovenox as ordered. 4. Supportive care: Continue to have patient get out of bed as much as possible. Continue protein shakes 4 times a day. The patient is to do exercises as instructed to continue to work on improving strength. Dictated by SUNSHINE Castellano for Laureano Onofre MD Patient seen and examined. Shortness of breath is doing quite well. He is on nasal cannula O2. Does not appear in distress. His increased workup breathing is back to baseline. We will plan to discharge from today and see him in the clinic in the next 2 days. Continue Lasix 40 mg daily and Levaquin. Continue pain medicines at home as he was doing. Laureano Onofre M.D. cc: SUNSHINE Castellano MD [facility]
[2018-11-13] MEDS: MIRALAX PO SCH (09:05)
[2018-11-13] MEDS: DILAUDID PO PRN (09:05)
[2018-11-13] MEDS: LOVENOX SUBQ SCH (09:05)
[2018-11-13] MEDS: LASIX IV SCH (09:05)
[2018-11-13] MEDS: FLOMAX PO SCH (09:05)
[2018-11-13] MEDS ORDERED: KLOR-CON PO ONE (10:48)
--- NOTE | 2018-11-13 11:54 | DISCHARGE SUMMARY ---
ADMISSION DATE: 10/28/2018 DISCHARGE DATE: PRINCIPAL DIAGNOSIS: Health-care associated pneumonia. SECONDARY DIAGNOSES: 1. Hypercapnic respiratory failure. 2. Pulmonary edema. 3. Lung cancer. 4. Hypertension. 5. Chronic obstructive pulmonary disease. 6. Pericardial effusion. DISCHARGE MEDICATIONS: Include the following. Levaquin 500 mg p.o. daily for the next 7 days, Proventil HFA 2 puffs every 6 hours, Flomax 0.4 mg p.o. once a day, trazodone 50 mg p.o. at bedtime, Lotrel 5/20 one p.o. daily, DuoNeb 3 mL as needed, omeprazole 20 mg once a day. CONSULTATIONS DONE DURING THIS HOSPITAL STAY: Include the following. Dr. Luca Vanessa, Pulmonology. Dr. Luis M Reagan, General Surgery. Dr. Laureano Onofre, Hematology/Oncology. Dr. Celso Thomas, Urology. PROCEDURES DONE DURING THIS HOSPITAL STAY: Echocardiogram 10/31/2018. Chest CT 11/02/2018. HOSPITAL COURSE: Mr. Clark Mcknight is a 78-year-old male who was recently diagnosed as having lung cancer. He was seen in the outpatient by Dr. Onofre and was admitted on 10/14/2018 for community- acquired pneumonia. He was treated successfully and sent home and he came back to the hospital with similar symptoms, cough with yellowish sputum, increased shortness of breath. X-ray of his chest showed evidence of bilateral infiltrates. During the course of the hospital he was placed on antibiotics for presumed pneumonia and was maintained on nebulized bronchodilators and also diuretics for also possible pulmonary edema. The patient was seen by the Pulmonary team. He was seen by the Hematology/Oncology team (Dr. Onofre). The patient seemed to have done fairly well. We did plan to place his port during this hospital stay. He needs the port to get his chemotherapy. However, Dr. Onofre would like this done later. At this time, the patient has done well. He is stable. He can now be discharged home. DIET: Will be healthy heart. PHYSICAL EXAMINATION: Vital signs: Temperature 98.3 degrees, pulse of 50, respiratory rate is 16, blood pressure 103/53, oxygen saturation is 98%. HEENT: Atraumatic, normocephalic. Cardiovascular system: S1, S2. Respiratory system: Has evidence of good air entry bilaterally. Abdomen: Soft, nontender. No masses. Extremities: No evidence of significant edema. Central nervous system: No obvious focal deficit noted. LABS: WBC 3.23, hematocrit 36.4, with a platelet count of 138,000. ABG 7.48/51/86/98.5%. Sodium is 140, potassium is 3.2, chloride 95, bicarb 24, BUN is 20, creatinine 0.8. PLAN: Patient can be discharged home today and to follow up with his Oncologist in the outpatient. cc: Mika Horta MD
[2018-11-13 12:27] VITALS: BP 113/60
== END 2018-11-13 13:30 | disposition home health service (06) | DRG 180 ==
LOC: SUPCPDRO → ED 15:35 → 3N 22:47 → SUATTDRO 22:47
PROVIDERS: ATTEND Internal Medicine
CPT/HCPCS: 51702; 71010; 71020; 71045; 71046; 71250; 80048; 80053; 82040; 82378; 82550; 82784; 82805; 83036; 83735; 83880; 84100; 84145; 84484; 85025; 85027; 85610; 87040; 87070; 87205; 93005; 93010; 93306; 93308; 94640; 94761; 94762; 94799; 96365; 96366; 96367; 96372; 96375; 99285; A9270; J0360; J0692; J0696; J1170; J1630; J1650; J1940; J1956; J2060; J2270; J2405; J2550; J2765; J3420; J7030; J7050; J9045; J9305

== ENCOUNTER 2018-12-16 01:45 | Inpatient (IN) ==
[2018-12-16] MEDS ORDERED: ATIVAN ONE (01:52)
[2018-12-16] MEDS ORDERED: MORPHINE IV ONE ×3 (02:07→04:41)
[2018-12-16] MEDS ORDERED: ATIVAN IV ONE ×3 (02:07→04:41)
--- NOTE | 2018-12-16 07:42 | PROVIDER DOCUMENTATION ---
This chart was entered by Dulce Maria Bautista Scribe, acting as scribe for Uriel Bowser MD. HPI-Respiratory General - General Chief Complaint: Unresponsive Stated Complaint: SOB Time Seen by Provider: 12/16/18 01:54 Source: EMS Allergies/Adverse Reactions: Patient Allergies Allergy/AdvReac Type Severity Reaction Status Date / Time No Known Allergies Allergy Verified 08/31/18 15:57 Home Medications: Home Medication List Medication Instructions Recorded Confirmed Last Taken Type Amlodipine Besylate/Benazepril 1 each PO DAILY 10/14/18 10/28/18 Unknown History [Amlodipine-Benazepril 5-20 mg] Albuterol 2.5MG/Ipratrop 0.5MG 3 ml INH PRN PRN 10/26/18 10/28/18 Unknown History [Duoneb (A & A)] Omeprazole 10/31/18 10/28/18 History Albuterol Sulfate [Proventil Hfa] 2 puff IH Q6H #1 hfa.aer.ad 11/13/18 Unknown Rx Hydrocodone/Acetaminophen [[place] 1 each PO Q6H PRN PRN #30 tablet 11/13/18 Unknown Rx 10-325 Tablet] Levofloxacin [Levaquin] 500 mg PO DAILY #7 tablet 11/13/18 Unknown Rx Tamsulosin [Flomax] 0.4 mg PO DAILY capsule 11/13/18 Unknown Rx Trazodone [Desyrel] 50 mg PO HS PRN PRN tablet 11/13/18 Unknown Rx - History of Present Illness-Resp Nature of Presenting Problem: Pt is 78/m presenting to ED via EMS. PT is in end stage lung cancer and is on Hospice. Pt was at home, EMS was called by family because his breathing was becoming more and more labored and family did not want to see him suffer at home. Pt is DNR Onset/Duration: reports: gradual Timing: reports: getting worse Cough Quality/Degree: reports: no cough Episode Frequency: chronic episodes Current Respiratory Medication Therapy: Initiated albuterol/atrovent inhale Modifying Factors: improves with: exertion, albuterol inhaler Associated Symptoms: reports: shortness of breath, short of breath Similar Symptoms Previously?: Yes Recently seen or treated by another doctor?: Yes Review of Systems - Adult - REVIEW OF SYSTEMS - ADULT ROS:: limited per condition Constitutional: denies: chills, fever Eyes: reports: no symptoms reported Ears, Nose, Mouth & Throat: reports: no symptoms reported Cardiovascular: reports: no symptoms reported Respiratory: reports: shortness of breath. denies: cough, wheezing Gastrointestinal: reports: no symptoms reported Genitourinary: reports: no symptoms reported Musculoskeletal: reports: no symptoms reported Integumentary: reports: no symptoms reported Neurological: reports: no symptoms reported Psychiatric: reports: no symptoms reported Endocrine: reports: no symptoms reported Hematologic/Lymphatic: reports: no symptoms reported Allergic/Immunologic: reports: no symptoms reported All Other Systems: Reviewed and Negative Past History - Adult - PAST MEDICAL HISTORY-ADULT Review of Records: reports: Old Records Reviewed, Nursing Assessment Review, Medications Reviewed, Social history reviewed & non-contributory. Major Childhood Illnesses: reports: denies history Cardiovascular: reports: denies history Respiratory: reports: denies history Gastrointestinal: reports: denies history Obstetrical/Gynecological: reports: denies history Genitourinary: reports: denies history Musculoskeletal: reports: denies history Neurological: reports: denies history Endocrine/Immune: reports: denies history Other Conditions: reports: denies history - PRIOR SURGERIES/PROCEDURES Surgical/Procedure History: reports: other (cataracts) - IMMUNIZATION STATUS Childhood Immunizations: See Nurse Assessment Flu Vaccine: See Nurse Assessment - FAMILY HISTORY Family History: reviewed, not pertinent - SOCIAL HISTORY Smoking: denies, non-smoker Substance Use: none/never Alcohol Use Frequency: never Living Situation: family Physical Exam-General - CONSTITUTIONAL General Appearance: severe distress, other (unresponsive) - CARDIOVASCULAR Cardiovascular: bradycardia (41) - SKIN Integumentary: normal color, warm/dry - PSYCHIATRIC Psych/Mental Status: other (pt is unresponsive) Progress - PLAN OF CARE/RESULTS Progress/Plan/Lab Results: Vital Signs - 8 hr 12/16/18 01:51 12/16/18 02:04 12/16/18 03:24 Temperature 96.5 F L Pulse Rate 41 L 81 Respiratory Rate 19 26 H Blood Pressure 92/55 115/71 O2 Sat by Pulse Oximetry 89 L 90 L 100 12/16/18 04:46 Temperature Pulse Rate 43 L Respiratory Rate 23 Blood Pressure 112/67 O2 Sat by Pulse Oximetry 93 L Orders Category Date Time Status Resuscitation Status Routine Care 12/16/18 02:08 Ordered Lorazepam [Ativan] Med 12/16/18 02:07 Discontinued 1 mg IV NOW ONE Lorazepam [Ativan] Med 12/16/18 04:38 Discontinued 1 mg IV NOW ONE Lorazepam [Ativan] Med 12/16/18 04:41 Discontinued 1 mg IV NOW ONE Lorazepam [Ativan] Med 12/16/18 01:52 Discontinued 2 mg .ROUTE .STK-MED ONE Morphine Med 12/16/18 04:38 Discontinued 4 mg IV NOW ONE Morphine Med 12/16/18 04:41 Discontinued 4 mg IV NOW ONE Morphine Med 12/16/18 02:07 Discontinued 6 mg IV NOW ONE - CONSULTS/PCP/HOSPITALIST Notification #1 *Consult/PCP/Hospitalist*: Dr Reynolds Time Discussed: 07:00 Consult Disposition: Admit Departure - Departure Date of Disposition Decision: 12/16/18 Time of Disposition Decision: 07:39 DIAGNOSIS: Lung cancer, primary, with metastasis from lung to other site Disposition: ADMITTED INPATIENT 09 Certified Medical Emergency: Emergent Condition: Critical Referrals and Follow-Ups: Jacki Kiran CRNP [Primary Care Provider] - - Critical Care Note This patient required my direct & personal management of CC.: Yes Total Time (mins): 30 Critical Care Statement: This patient required my direct personal management to treat or rule out processes, the absence of which, could potentiallly result in sudden, clinically significant life or limb threatening deterioration. Attestation - Physician/ DANIELA Attestation Patient care was provided by Advanced Practice Provider:: No The physician spent face to face time with patient:: Yes Advanced Practice Provider documentation review:: Supervising physician onsite and consulted in the evaluation and care of this patient. The physician did have a face to face encounter with the patient. This chart was documented by the indicated scribe, (Dulce Maria Bautista, Shamika) and accurately reflects the services I performed and decisions made by me, Uriel Bowser MD, as attested by the provider's signature.
[2018-12-16] MEDS ORDERED: ATIVAN IV PRN (12:17)
[2018-12-16] MEDS: MORPHINE IV PRN ×3 (14:54→22:43)
--- NOTE | 2018-12-16 17:08 | HISTORY AND PHYSICAL ---
CHIEF COMPLAINT: Unresponsive, respiratory distress. HISTORY OF PRESENT ILLNESS: This is a 78-year-old gentleman with a history of metastatic lung adenocarcinoma, chronic respiratory failure, hypertension. He presented to the emergency room via EMS after being called by the patient's family. The patient is being cared for under hospice. When his breathing became labored the family were unable to keep him at home, not wanting to see him suffer therefore they wanted him transferred to the hospital. On arrival to the emergency room he had a pressure of 92/55 with a heart rate of 41, temperature was 96 degrees, O2 saturations were 89% on 100% nonrebreather. The patient was unresponsive at this time. PAST MEDICAL HISTORY: Metastatic lung cancer, hypertension. PAST SURGICAL HISTORY: Right eye lens implant, left lower extremity pins placed for fracture and lung biopsy secondary to lung cancer. SOCIAL HISTORY: He lives at home with family members and he is currently under the care of Hospice. ALLERGIES: No known drug allergies. HOME MEDICATIONS: A list will be obtained. REVIEW OF SYSTEMS: Unable to obtain as the patient is unresponsive. PHYSICAL EXAM: This is a 78-year-old gentleman who is lying in the bed in no distress. VITAL SIGNS: Blood pressure is 94/62 with a heart rate of 70, respirations are 28, temperature is 94.4 degrees with O2 saturations that are 97% on 100% nonrebreather. CARDIOVASCULAR: Regular rate and rhythm. S1 and S2 are appreciated. PULMONARY: Breath sounds are coarse with wheezes scattered throughout. They are shallow. GASTROINTESTINAL: Abdomen soft, nondistended with bowel sounds in all 4 quadrants. SKIN: Warm and dry. NEUROLOGIC: He is unresponsive. ASSESSMENT AND PLAN: 1. Metastatic lung cancer. 2. Acute hypoxic respiratory failure. 3. Bradycardia. 4. History of hypertension. PLAN: The patient will be admitted to the medical-surgical floor. He will be NPO. Will get routine vital signs. Will use morphine 2 mg IV q.2 hours p.r.n. for pain or breathlessness, Ativan 0.5 IV q.4 hours p.r.n. The patient is a DNR level 1. Family members are at bedside. The patient's unfortunate circumstances have been discussed with family members per myself as well as Dr. Fisher. They do voice understanding. Further treatments pending hospital course. Dictated by SUNSHINE Menendez for Duglas Fisher MD This chart was documented by, SUNSHINE Menendez and accurately reflects the services performed, treatment plan and medical decisions as attested by the providers signature Duglas Fisher MD. cc: SUNSHINE Menendez MD
--- NOTE | 2018-12-16 23:30 | HISTORY AND PHYSICAL ---
ADDENDUM: Patient seen and examined by myself. Full note dictated and discussed with nurse practitioner. Patient unfortunately has end-stage untreatable inoperable lung cancer with metastases. He had been on hospice but the family brought him to the ER. We will admit him, continue comfort care measures and we will follow. Certainly do not expect Mr. Mcknight to survive this hospitalization. His most recent CT on chart from 11/02/2018 showed worsening masses in the left upper lobe with metastatic nodules and lymphangitic spread of the carcinoma. cc: Duglas Fisher MD
[2018-12-17] MEDS: MORPHINE IV PRN (05:34)
[2018-12-17 08:11] VITALS: BP 112/54
[2018-12-17] MEDS ORDERED: MORPHINE IV PRN (09:20)
--- NOTE | 2018-12-17 18:55 | DISCHARGE SUMMARY ---
ADMISSION DATE: 12/16/2018 DISCHARGE DATE: 12/17/2018 FINAL DIAGNOSES: 1. The patient was pronounced around 11 o'clock on 12/17/2018. 2. Metastatic lung cancer. 3. Acute hypoxic respiratory failure. 4. Bradycardia. 5. Metabolic encephalopathy secondary to his cancer and volume depletion. 6. Volume depletion. 7. History of hypertension. CONSULTATIONS: None. PROCEDURES: None. BRIEF HOSPITAL COURSE: The patient is a 78-year-old male who presented to [facility] in the end stages of life due to metastatic lung cancer. He had apparently been on hospice and for whatever reason the family had replicated and brought him to the ER for comfort. The patient was admitted to the hospital for comfort care. We placed him on Ativan and morphine IV for comfort measures. The patient never regained consciousness. He never awakened to eat or drink or communicate. He was DNR level 1. Patient passed on 12/17/2018. cc: Duglas Fisher MD
== END 2018-12-17 11:17 | disposition expired | DRG 180 ==
LOC: P.ED 01:45 → P.MEDSURG 01:45 → OBSVTOIN 09:35
PROVIDERS: ATTEND Family Medicine
CPT/HCPCS: 94761; 96374; 96375; 96376; 99285; J2060; J2270